=== PATIENT | female | born 1950 | race Caucasian/White ===

== ENCOUNTER 2017-02-01 05:32 | Inpatient (IN) | payer MEDICARE, OTHER, SELFPAY | END 2017-02-08 09:45 | disposition home or self-care (01) | DRG 190 | PROVIDERS: Admitting Provider Internal Medicine Adolescent Medicine; Visit Provider Internal Medicine Adolescent Medicine | DX: J44.0 Chronic obstructive pulmonary disease with (acute) lower respiratory infection (principal); J18.9 Pneumonia, unspecified organism; R78.81 Bacteremia; J44.1 Chronic obstructive pulmonary disease with (acute) exacerbation; E11.9 Type 2 diabetes mellitus without complications; Z72.0 Tobacco use | CPT/HCPCS: 82962; 86580; 94640; 94760; J1956 ==

== ENCOUNTER → 2017-02-12 | Outpatient (CLI) | payer MEDICARE, OTHER, SELFPAY | PROVIDERS: Family Provider Internal Medicine; Visit Provider Internal Medicine | DX: R06.02 Shortness of breath (principal); Z87.01 Personal history of pneumonia (recurrent) | CPT/HCPCS: 71020 ==

== ENCOUNTER → 2017-08-19 08:00 | Outpatient (CLI) | payer MEDICARE, OTHER, SELFPAY ==
--- NOTE | 2017-08-19 08:30 | US_ITS ---
US abdomen limited History:Nausea, vomiting, abdominal pain Ordering Physician:Shai Yap Patient Age: 66 years Comparison:None Findings: Pancreas:Unremarkable. No obvious mass or abnormal fluid collection. No ductal dilatation Liver:No focal liver lesions demonstrated. Homogeneous echogenicity. No intrahepatic biliary ductal dilatation evident Right Kidney:Unremarkable. Normal size and echogenicity. No hydronephrosis Gallbladder:No gallstones, gallbladder wall thickening, pericholecystic fluid, or biliary dilatation. There is a small amount sludge in the gallbladder which may be related patient's fasting state. Impression: Small amount of sludge in the gallbladder otherwise negative right upper quadrant ultrasound
--- NOTE | 2017-08-19 09:00 | FL_ITS ---
FL upper GI w air HISTORY: ITS.REASON: EPIGASTRIC PAIN ORDERING PHYSICIAN: Shai Yap PATIENT AGE: 66 years Comparison: None FINDINGS: The esophagus, stomach, and duodenum have an unremarkable appearance. There is a small sliding hiatal hernia with a small distal esophageal diverticulum. No ulcer or mass evident. No mucosal abnormalities apparent. There is normal peristalsis. The duodenal C-loop is nondisplaced. FLUOROSCOPY TIME : 2 minutes and 18 seconds. IMPRESSION: 1. Small sliding hiatal hernia with small distal esophageal diverticulum 2. Otherwise negative upper GI
== END ==
PROVIDERS: Family Provider Internal Medicine; PCP Internal Medicine Adolescent Medicine; Visit Provider Internal Medicine
DX: R10.13 Epigastric pain (principal)
CPT/HCPCS: 74247; 76705

== ENCOUNTER → 2017-11-19 09:39 | Outpatient (CLI) | payer MEDICARE, OTHER, SELFPAY ==
--- NOTE | 2017-11-19 09:44 | XR_ITS ---
XR chest 2V HISTORY: Pain, COPD ITS.REASON: COPD ORDERING PHYSICIAN: Shai Yap PATIENT AGE: 66 years COMPARISON: 02/12/2017 FINDINGS: The cardiomediastinal silhouette and pulmonary vascularity are within normal limits. COPD, no acute findings. No lobar consolidation or collapse. No acute bony findings. IMPRESSION: COPD, no acute finding
--- NOTE | 2017-11-19 09:44 | XR_ITS ---
EXAM: XR thoracic spine 3V HISTORY: ITS.REASON: THORACIC BACK PAIN Comparison: 02/12/2017 FINDINGS: There is mild dextrocurvature of the thoracic spine. There is mild thoracic kyphosis with mild multilevel degenerative disc disease in the upper thoracic spine. No acute fracture or dislocation. No lytic or blastic change. IMPRESSION: Degenerative change with upper thoracic kyphosis with no acute finding
== END ==
PROVIDERS: PCP Internal Medicine; Visit Provider Internal Medicine
DX: M54.6 Pain in thoracic spine (principal); J44.9 Chronic obstructive pulmonary disease, unspecified
CPT/HCPCS: 71046; 72072

== ENCOUNTER → 2017-11-26 08:45 | Outpatient (CLI) | payer MEDICARE, SELFPAY ==
--- NOTE | 2017-11-26 08:48 | XR_ITS ---
XR DEXA axial skeleton HISTORY: ITS.REASON: ARTHRITIS,BACK PAIN,POST MENOPAUSAL ORDERING PHYSICIAN: Shai Yap PATIENT AGE: 66 years COMPARISON: None FINDINGS: The BMD measured at the right femoral neck is 0.673 g/cm squared with a T score of -2.6. This is considered osteoporosis according to the World Health Organization criteria. Fracture risk is high. Treatment is advised. L1 L4 density has a T score of -2.1 IMPRESSION: Osteoporosis with high fracture risk. Recommend treatment and follow-up exam in November 2018
== END ==
PROVIDERS: Family Provider Internal Medicine; PCP Internal Medicine; Visit Provider Internal Medicine
DX: Z78.0 Asymptomatic menopausal state (principal); M19.90 Unspecified osteoarthritis, unspecified site
CPT/HCPCS: 77080

== ENCOUNTER 2018-03-17 08:20 | Inpatient (IN) ==
[2018-03-17 08:44] LABS: Basophils # 0.1 K/mm3 (0-0.2); Basophils % 0.3 % (0.1-2.0); Eosinophils # 0.1 K/mm3 (0.0-0.4); Eosinophils % 0.3 % (0.1-12.0); Hemoglobin 14.2 g/dL (12.2-16.2); Lymphocytes # 1.7 K/mm3 (0.7-4.5); Lymphocytes % 8.4 % (10-50); Mean Corpuscular HGB Conc 31.7 g/dL (31.8-35.4); Mean Corpuscular Hemoglobin 28.5 pg (27.0-31.2); Mean Corpuscular Volume 90.1 fl (81-99); Mean Platelet Volume 7.9 fl (7.4-10.4); Monocytes # 0.7 K/mm3 (0.1-1.0); Monocytes % 3.2 % (1.7-9.3); Neutrophils # 17.7 K/mm3 (1.8-7.8); Neutrophils % 87.8 % (37.0-80.0); Platelet Count 381 K/mm3 (142-424); Red Blood Count 4.99 M/mm3 (4.20-5.40); Red Cell Distribution Width 13.1 % (11.5-17.5)
[2018-03-17 08:57] LABS: Anion Gap 16.9 mEq/L (5-15); Blood Urea Nitrogen 21 mg/dL (7-18); Calcium 9.4 mg/dL (8.5-10.1); Carbon Dioxide 24 mmol/L (21.0-32.0); Chloride 97 mmol/L (98-107); Glucose 181 mg/dL (74-106); Potassium 3.9 mmoL/L (3.5-5.1); Sodium 134 mmol/L (136-145)
--- NOTE | 2018-03-17 08:59 | Emergency Department Note ---
ED Disposition Clinical Impression: Acute exacerbation of chronic obstructive airways disease, Pneumonia, community acquired Disposition: Admitted As Inpatient Condition on Discharge: Fair Referrals: Shai Yap [Primary Care Provider] - - Critical Care Critical Care Time: No Attestation: On , the high probability of a clinically significant, sudden or life threatening deterioration of the following system(s) required my full and direct attention, intervention and personal management. The time I documented below is in addition to time spent performing reported procedures but includes the follow ing listed in this critical care notation. Medical Decision Making - Medical Records Medical records reviewed: Yes: I reviewed the patient's medical records. - Sachin Inquiry Pt receiving controlled substance: No Sachin was queried for this patient: No Vital Signs: 03/17/18 08:22 03/17/18 09:20 Temperature 98.9 F Temperature Source Oral Pulse Rate [Right Radial] 98 H 93 H Respiratory Rate 24 Blood Pressure [Right Arm] 130/89 123/45 L Blood Pressure Mean [Right Arm] 102 71 Blood Pressure Source [Right Arm] Automatic Cuff Automatic Cuff Blood Pressure Position [Right Arm] Sitting Sitting 02 Sat by Pulse Oximetry 93 L 96 Oxygen Delivery Method Nasal Cannula Oxygen Flow Rate (LPM) 3.5 - Lab Data Lab results reviewed: Yes: I reviewed the patient's lab results. Lab Results 03/17/18 08:30: WBC 20.0 H, RBC 4.99, Hgb 14.2, Hct 45.0, MCV 90.1, MCH 28.5, MCHC 31.7 L, RDW 13.1, Plt Count 381, MPV 7.9, Neut % (Auto) 87.8 H, Lymph % (Auto) 8.4 L, [place] % (Auto) 3.2, Eos % (Auto) 0.3, Baso % (Auto) 0.3, Neut # (Auto) 17.7 H, Lymph # (Auto) 1.7, [place] # (Auto) 0.7, Eos # (Auto) 0.1, Baso # (Auto) 0.1, Total Counted 100, Neutrophils % (Manual) 81 H, Band Neutrophils % 6.0, Lymphocytes % (Manual) 7 L, Atypical Lymphs % 2.0, Monocytes % (Manual) 4, Platelet Estimate Normal, RBC Morphology Normal 03/17/18 08:30: Sodium 134 L, Potassium 3.9, Chloride 97 L, Carbon Dioxide 24, Anion Gap 16.9 H, BUN 21 H, Creatinine 1.02, Estimated Creat Clear 45, Estimated GFR 54 L, Est GFR ( Amer) 65, Glucose 181 H, Calcium 9.4, Troponin I < 0.02 03/17/18 08:30: Lactate 2.5 H Result diagrams: 03/17/18 08:30 03/17/18 08:30 Orders (Tests/Meds): ED MEDICATIONS Generic Name Dose Route Start Last Admin Trade Name Freq PRN Reason Stop Dose Admin Lactated Ringer's 1,000 mls @ 999 mls/hr 03/17/18 08:45 03/17/18 08:57 Lactated Ringer's 1000 Ml Bag IV 03/17/18 09:45 999 mls/hr .Q1H1M HITESH Administration Levofloxacin/Dextrose 750 mg in 150 mls @ 100 mls/hr 03/17/18 09:00 03/17/18 08:57 Levofloxacin 750mg/150ml Premix IV 03/31/18 08:59 100 mls/hr Q24H HITESH Administration Protocol Discontinued Medications Generic Name Dose Route Start Last Admin Trade Name Freq PRN Reason Stop Dose Admin Albuterol/Ipratropium 3 ml 03/17/18 08:38 Duoneb 3ml Neb IH 03/17/18 08:39 ONCE ONE Dexamethasone Sodium Phosphate 20 mg 03/17/18 08:38 03/17/18 08:56 Decadron 4mg/Ml 1ml Vial IV 03/17/18 08:39 20 mg ONCE ONE Administration Ketorolac Tromethamine 15 mg 03/17/18 08:41 03/17/18 08:56 Toradol 30mg/Ml Vial IV 03/17/18 08:42 15 mg ONCE ONE Administration ORDERS Category Date Time Status Chest XR 2 view (NOT portable) [XR chest 2V] Stat Exams 03/17/18 08:31 Taken Blood Culture Stat Micro 03/17/18 08:30 Received Sputum Culture & Gram Stain Stat Micro 03/17/18 08:30 Received - Radiology Data #1 Image(s): Chest Image Reviewed: Yes I reviewed the patient's radiology results Preliminary Findings: Abnormal (Hyperinflation lungs consistent with COPD with probable right posterior pneumonia lower lobe) - ECG Data Tracing #1 I reviewed this ECG and interpreted as documented below: Normal sinus rhythm rate 97 axis 78 no changes from 01/11/2017 no acute pa thology ECG initial impression date: 03/17/18 ECG initial impression time: 08:25 Normal Sinus Rhythm: Yes Medical Decision Narrative: Differential diagnosis community-acquired pneumonia, exacerbation of COPD, influenza Patient started on DuoNeb with Pulmicort and given IV steroids and a dose of Le vaquin to cover community-acquired pneumonia she produced a significant amount of sputum dark yellow after treatment her lung sounds improved she was given fluids [address] Saha covering for Dr. Yap discussed with the nurse practitioner patient be admitted to the hospital for further treatment in stable condition General Adult HPI - General Chief complaint: Shortness of Breath/Dyspnea Stated complaint: short of breath Time Seen by Provider: 03/17/18 08:25 Mode of Arrival: Family Vehicle Limitations: No Limitations Description of Symptoms (Recalled from ER Triage Doc. by RN): pt c/o bilateral rib pain that started on wednesday with productive cough with yellow mucous. pt has history of copd. pt took duoneb at home before she came to the hospital. - History of Present Illness HPI narrative: Patient is a 67-year-old female smoker with COPD who for last couple days has been having symptoms of congestion coughing chest wall pain she denies fever or chills she has oxygen at home but does not use it regularly. Complaining of thick yellow sputum. - Related Data Home Medications Medication Instructions Recorded Confirmed Levothyroxine Sodium 50 mcg PO DAILY 03/17/18 03/17/18 [Levothyroxine 25mcg (0.025mg) Tab] Metformin HCl 1,000 mg PO BID 03/17/18 03/17/18 Rosuvastatin Calcium 10 mg PO HS 03/17/18 03/17/18 Tramadol HCl [Tramadol 50mg 50 mg PO Q6 PRN 03/17/18 03/17/18 Tab] Allergies Allergy/AdvReac Type Severity Reaction Status Date / Time Penicillins Allergy Severe TONGUE Verified 03/17/18 08:36 SWELLS doxycycline Allergy Mild I-RASH Verified 03/17/18 08:36 [facility] History - Hepatitis A Screen Drug use history?: No High risk sexual behaviors?: No History of sexually transmitted infection?: No Currently employed?: No Childcare worker?: No Do you have indoor plumbing?: Yes Do you have electricity?: Yes Attestation statement:: This patient has been screened for Hepatitis A risk factors. I have reviewed the patient's past medical history: Yes Medical History: Reports:: Diabetes Mellitus Type 2 Denies:: Cancer, Diabetes Mellitus Type 1, MRSA Amputation: No - Social History Smoking Status: Current every day smoker Tobacco Type: cigarettes Alcohol Intake: never Occupational Status: retired - Psychiatric History Expresses thoughts of harming self/others: None Suicide Plan Description: No Plan ROS Obtained: Yes All systems reviewed & no additional complaints - Constitutional Constitutional: Reports body ache, Reports poor appetite, Reports weakness - Respiratory Respiratory: Yes as per HPI, Yes cough, Yes dyspnea, Yes dyspnea on exertion Physical Exam - General General appearance: alert Comment: Patient appears dehydrated and weak but alert and oriented and tachypneic no audible wheezes - Head Head exam: atraumatic, normocephalic, normal inspection - Eye Eye exam: Present: normal appearance, PERRL, EOMI - ENT ENT exam: Present: normal exam, normal oropharynx, mucous membranes moist, TM's normal bilaterally, normal external ear exam - Neck Neck exam: Present: normal inspection, full ROM, trachea midline. Absent: meningismus, lymphadenopathy - Chest Chest inspection: Present: normal inspection, symmetric chest wall rise. Absent: tenderness - Respiratory Respiratory exam: Absent: normal lung sounds bilaterally (Distant breath sounds with some wheezes patient has productive cough), respiratory distress - Cardiovascular Cardiovascular exam: Present: regular rate, normal rhythm, tachycardia. Absent: JVD - Abdominal Exam Abdominal exam: Present: soft, normal bowel sounds. Absent: distention, tenderness, guarding - Extremities Exam Extremities exam: Present: normal inspection, full ROM, normal capillary refill. Absent: calf tenderness - Back Exam Back exam: Present: normal inspection. Absent: tenderness - Neurological Exam Neurological exam: Present: alert, oriented X3 - Psychiatric Psychiatric exam: Present: normal affect, normal mood - Skin Skin exam: Present: warm, dry, intact, normal color - Lymphatic Lymphatic Findings: no adenopathy
[2018-03-17 09:26] LABS: Lymphocytes % 7 % (10-50); Monocytes % 4 % (2-9); Neutrophils % 81 % (42-76); Total Cells Counted 100
[2018-03-17 09:28] LABS: RBC Morphology Normal
--- NOTE | 2018-03-17 15:26 | Pharmacy Consult Notes ---
[facility] Pharmacy VTE Monitoring - Patient Demographics Admission date: 03/17/18 Report Date: 03/17/18 Time: 15:26 Allergies/Adverse Reactions: Patient Allergies Penicillins Allergy (Severe, Verified 03/17/18 08:36) TONGUE SWELLS doxycycline Allergy (Mild, Verified 03/17/18 08:36) I-RASH Height: 1.6 m Weight: 53.977 kg Patient Problems: Current Active Problems Acute exacerbation of chronic obstructive airways disease (Acute) Pneumonia, community acquired (Acute) - VTE Risk Labs: VTE Related Lab Results Hgb 14.2 g/dL (12.2-16.2) 03/17/18 08:30 Hct 45.0 % (37.0-47.0) 03/17/18 08:30 Plt Count 381 K/mm3 (142-424) 03/17/18 08:30 BUN 21 mg/dL (7-18) H 03/17/18 08:30 Creatinine 1.02 mg/dL (0.55-1.02) 03/17/18 08:30 Estimated Creat Clear 45 mL/min (50-200) 03/17/18 08:30 Was VTE Risk Assessment Performed: Yes VTE Score: 4 VTE Risk Level: Low Risk - Prophylaxis VTE Prophylaxis Ordered?: Yes Types of VTE Prophylaxis: TEDS Knee High Location of Applied Device: Bilateral Lower Extremeties - VTE Diagnosis Confirmed Treatment or plan recommended: Continue Current Treatment
--- NOTE | 2018-03-17 19:49 | History & Physical Report ---
*Admission Date: 03/17/18 *Chief complaint: Cough, shortness of breath *History of present illness: 67 yr old female with known history of COPD and continued tobacco use presented to ED today with complaints of worsening cough, shortness of breath and pleuritic left lower chest pain with cough and deep breathing. She reports that symptoms started approximately 3 days ago and have been getting progressively worse. She is unsure about whether or not she has been running a fever. ED workup reveals left lower lobe pneumonia with small pleural effusion, elevated WBC, initially elevated lactate and she was admitted for IV antibiotics, IV hydration and pulmonary toilet. [facility] History I have reviewed the patient's past medical history: Yes Medical History: Reports:: Chronic Obstructive Pulmonary Disease (COPD), Diabetes Mellitus Type 2, Home Oxygen (HS and during the day as needed), Hyperlipidemia, Osteoporosis Denies:: Cancer, Diabetes Mellitus Type 1, MRSA Have you ever received a pneumonia vaccine?: Yes Have you received a flu vaccine this season?: Yes Other Medical History: Reports: Arthritis, Hypothyroidism Other Surgeries: Yes: Hysterectomy-Total Amputation: No - *Social History Educational Level: Attended College Smoking Status: Current every day smoker Tobacco Type: cigarettes Alcohol Intake: never Occupational Status: retired ([employer]) Travel in the last 8 weeks: None - Psychiatric History Expresses thoughts of harming self/others: None Suicide Plan Description: No Plan *Family Hx:: Diabetes Review of Systems - Review of Systems Review of systems:: pertinent systems reviewed and negative unless documented below - Constitutional Reports fatigue - *Cardiovascular Reports chest pain (with deep breathing, left side), Reports shortness of breath, Reports shortness of breath with activity, Denies leg swelling - *Respiratory Reports change in phlegm color, Reports chest congestion, Reports cough, Reports excessive phlegm production, Reports pain on inspiration, Reports pain with cough, Denies coughing up blood - *Gastrointestinal Denies abdominal pain, Denies vomiting - *Musculoskeletal Reports back pain (chronic, some improvement with tramadol, recently started treatment for OP) - Integumentary/Breasts Denies rash - *Neurologic Reports weakness Meds Home Medications Medication Instructions Recorded Confirmed Type Alendronate Sodium 70 mg PO WEEKLY 03/17/18 03/17/18 History Levothyroxine Sodium 50 mcg PO DAILY 03/17/18 03/17/18 History [Levothyroxine 25mcg (0.025mg) Tab] Metformin HCl 1,000 mg PO BID 03/17/18 03/17/18 History Rosuvastatin Calcium 10 mg PO HS 03/17/18 03/17/18 History Tramadol HCl [Tramadol 50mg 50 mg PO Q6HP PRN 03/17/18 03/17/18 History Tab] Allergies Allergy/AdvReac Type Severity Reaction Status Date / Time Penicillins Allergy Severe TONGUE Verified 03/17/18 08:36 SWELLS doxycycline Allergy Mild I-RASH Verified 03/17/18 08:36 Exam Vital signs and Labs for Last 24 Hours: Temp Pulse Resp BP Pulse Ox 97.9 F 17 L 17 139/74 94 L 03/17/18 16:00 03/17/18 16:00 03/17/18 16:00 03/17/18 16:00 03/17/18 16:00 Laboratory Results - last 24 hr 03/17/18 08:30: WBC 20.0 H, RBC 4.99, Hgb 14.2, Hct 45.0, MCV 90.1, MCH 28.5, MCHC 31.7 L, RDW 13.1, Plt Count 381, MPV 7.9, Neut % (Auto) 87.8 H, Lymph % (Auto) 8.4 L, [place] % (Auto) 3.2, Eos % (Auto) 0.3, Baso % (Auto) 0.3, Neut # (Auto) 17.7 H, Lymph # (Auto) 1.7, [place] # (Auto) 0.7, Eos # (Auto) 0.1, Baso # (Auto) 0.1, Total Counted 100, Neutrophils % (Manual) 81 H, Band Neutrophils % 6.0, Lymphocytes % (Manual) 7 L, Atypical Lymphs % 2.0, Monocytes % (Manual) 4, Platelet Estimate Normal, RBC Morphology Normal 03/17/18 08:30: Sodium 134 L, Potassium 3.9, Chloride 97 L, Carbon Dioxide 24, Anion Gap 16.9 H, BUN 21 H, Creatinine 1.02, Estimated Creat Clear 45, Estimated GFR 54 L, Est GFR ( Amer) 65, Glucose 181 H, Calcium 9.4, Troponin I < 0.02 03/17/18 08:30: Lactate 2.5 H 03/17/18 13:00: Lactate 1.3 03/17/18 19:15: POC Glucose 371 H* I & O for Last 24 hours: Intake & Output 03/15/18 03/16/18 03/17/18 03/18/18 11:59 11:59 11:59 11:59 Intake Total 600 / 600 480 / 480 Balance 600 / 600 480 / 480 Weight 120 lb 119 lb Microbiology Reports for the Last 24 Hours: Microbiology 03/17/18 08:30 Sputum - Expectorated Sputum Gram Stain - Final - Constitutional no acute distress, average body habitus, cooperative - *Routine HEENT Exam Head: Present: normocephalic Eye: Present: conjunctivae pink ENT: Present: mucous membranes moist, oropharynx clear - *Routine Neck Exam Present: supple. Absent: lymphadenopathy - *Routine Respiratory Exam Present: accessory muscle use, decreased breath sounds, rales (bibasilar) - *Routine Cardiovascular Exam Present: RRR. Absent: murmur - *Routine Abdominal Exam Present: soft, normoactive bowel sounds. Absent: tenderness, distended - *Routine Extremities Exam Present: pulses intact, normal capillary refill. Absent: clubbing, edema - *Routine Skin Exam Present: intact, warm. Absent: rash - *Routine Neurological Exam Present: oriented X3 Assessment and Plan (1) LLL pneumonia Current visit: Yes Status: Acute Category: Medical Code(s): J18.1 - Lobar pneumonia, unspecified organism IV levaquin, FU on sputum and blood cultures when available. Pulmonary toilet and monitor respiratory status (2) Acute exacerbation of chronic obstructive airways disease Current visit: Yes Status: Acute Category: Medical Code(s): J44.1 - Chronic obstructive pulmonary disease with (acute) exacerbation (3) Diabetes mellitus type 2 in nonobese Current visit: Yes Status: Chronic Category: Medical Code(s): E11.9 - Type 2 diabetes mellitus without complications (4) Back pain, chronic Current visit: Yes Status: Chronic Qualifiers: Back pain location: low back pain Category: Medical Code(s): M54.9 - Dorsalgia, unspecified; G89.29 - Other chronic pain Continue tramadol PRN, pain at baseline (5) Hypothyroidism Current visit: Yes Status: Chronic Category: Medical Code(s): E03.9 - Hypothyroidism, unspecified continue home levothyroxine (6) Tobacco use Current visit: Yes Status: Chronic Category: Medical Code(s): Z72.0 - Tobacco use Encouraged to consider cessation. Has been successful in the past for up to 4 months. Nicotine patch during admission (7) Dehydration with hyponatremia Current visit: Yes Status: Acute Category: Medical Code(s): E87.1 - Hypo- osmolality and hyponatremia
[2018-03-18 06:58] LABS: Anion Gap 14.4 mEq/L (5-15); Calcium 8.6 mg/dL (8.5-10.1); Potassium 4.4 mmoL/L (3.5-5.1)
[2018-03-18 07:03] LABS: Basophils % 0.1 % (0.1-2.0); Hematocrit 35.8 % (37.0-47.0); Lymphocytes # 0.8 K/mm3 (0.7-4.5); Mean Corpuscular HGB Conc 31.7 g/dL (31.8-35.4); Mean Corpuscular Hemoglobin 28.9 pg (27.0-31.2); Mean Platelet Volume 8.1 fl (7.4-10.4); Monocytes # 0.4 K/mm3 (0.1-1.0); Monocytes % 3.3 % (1.7-9.3); Neutrophils # 11.7 K/mm3 (1.8-7.8); Neutrophils % 90.7 % (37.0-80.0); Platelet Count 350 K/mm3 (142-424); Red Blood Count 3.94 M/mm3 (4.20-5.40); White Blood Count 12.9 K/mm3 (4.8-10.8)
[2018-03-18 07:27] LABS: Hemoglobin 11.4 g/dL (12.2-16.2)
--- NOTE | 2018-03-18 08:43 | Progress Note ---
Internal Medicine - PN: Subj *Date: 03/18/18 *Time: 08:40 Interval history: Patient states she feels somewhat better, continues to cough, minimal shortness of air with exertion. Exam Vital signs and Labs for Last 24 Hours: Temp Pulse Resp BP Pulse Ox 98.2 F 76 16 111/52 L 94 L 03/18/18 04:00 03/18/18 06:44 03/18/18 04:00 03/18/18 04:00 03/18/18 06:44 Laboratory Results - last 24 hr 03/17/18 08:30: WBC 20.0 H, RBC 4.99, Hgb 14.2, Hct 45.0, MCV 90.1, MCH 28.5, MCHC 31.7 L, RDW 13.1, Plt Count 381, MPV 7.9, Neut % (Auto) 87.8 H, Lymph % (Auto) 8.4 L, [place] % (Auto) 3.2, Eos % (Auto) 0.3, Baso % (Auto) 0.3, Neut # (Auto) 17.7 H, Lymph # (Auto) 1.7, [place] # (Auto) 0.7, Eos # (Auto) 0.1, Baso # (Auto) 0.1, Total Counted 100, Neutrophils % (Manual) 81 H, Band Neutrophils % 6.0, Lymphocytes % (Manual) 7 L, Atypical Lymphs % 2.0, Monocytes % (Manual) 4, Platelet Estimate Normal, RBC Morphology Normal 03/17/18 08:30: Sodium 134 L, Potassium 3.9, Chloride 97 L, Carbon Dioxide 24, Anion Gap 16.9 H, BUN 21 H, Creatinine 1.02, Estimated Creat Clear 45, Estimated GFR 54 L, Est GFR ( Amer) 65, Glucose 181 H, Calcium 9.4, Troponin I < 0.02 03/17/18 08:30: Lactate 2.5 H 03/17/18 13:00: Lactate 1.3 03/17/18 19:15: POC Glucose 371 H* 03/18/18 05:50: WBC 12.9 H D, RBC 3.94 L, Hgb 11.4 L D, Hct 35.8 L, MCV 91.0, MCH 28.9, MCHC 31.7 L, RDW 13.0, Plt Count 350, MPV 8.1, Neut % (Auto) 90.7 H, Lymph % (Auto) 6.0 L, [place] % (Auto) 3.3, Eos % (Auto) 0.0 L, Baso % (Auto) 0.1, Neut # (Auto) 11.7 H, Lymph # (Auto) 0.8, [place] # (Auto) 0.4, Eos # (Auto) 0.0, Baso # (Auto) 0.0 03/18/18 05:50: Sodium 139, Potassium 4.4, Chloride 105, Carbon Dioxide 24, Anion Gap 14.4, BUN 16, Creatinine 0.80 D, Estimated Creat Clear 45, Estimated GFR 71, Est GFR ( Amer) 86 D, Glucose 188 H, Calcium 8.6 03/18/18 06:16: POC Glucose 184 H I & O for Last 24 hours: Intake & Output 03/15/18 03/16/18 03/17/18 03/18/18 11:59 11:59 11:59 11:59 Intake Total 600 / 600 1343 / 1343 Output Total 400 / 400 Balance 600 / 600 943 / 943 Weight 120 lb 119 lb Microbiology Reports for the Last 24 Hours: Microbiology 03/17/18 08:30 Sputum - Expectorated Sputum Gram Stain - Final 03/17/18 08:30 Sputum - Expectorated Sputum Sputum Culture - Preliminary Narrative: Patient is awake, alert, on oxygen. O2 saturations acceptable. No JVD. Oropharynx clear. Lungs in the anterior sabillon are clear, posterior sabillon have some expiratory rhonchi but good air movement. Abdomen soft and nontender. Neurologically intact. Assessment and Plan (1) LLL pneumonia Current visit: Yes Status: Acute Category: Medical Code(s): J18.1 - Lobar pneumonia, unspecified organism (2) Acute exacerbation of chronic obstructive airways disease Current visit: Yes Status: Acute Category: Medical Code(s): J44.1 - Chronic obstructive pulmonary disease with (acute) exacerbation (3) Diabetes mellitus type 2 in nonobese Current visit: Yes Status: Chronic Category: Medical Code(s): E11.9 - Type 2 diabetes mellitus without complications (4) Back pain, chronic Current visit: Yes Status: Chronic Qualifiers: Back pain location: low back pain Category: Medical Code(s): M54.9 - Dorsalgia, unspecified; G89.29 - Other chronic pain (5) Hypothyroidism Current visit: Yes Status: Chronic Category: Medical Code(s): E03.9 - Hypothyroidism, unspecified (6) Tobacco use Current visit: Yes Status: Chronic Category: Medical Code(s): Z72.0 - Tobacco use (7) Dehydration with hyponatremia Current visit: Yes Status: Acute Category: Medical Code(s): E87.1 - Hypo- osmolality and hyponatremia - Assessment and plan all Dx Assessment and Plan for all problems:: Electrolytes improving. Continue current IV antibiotics, await culture results to see if antibiotic therapy needs to be adjusted. Start Advair inhaler as patient is not on inhaled corticosteroids at home.
[2018-03-18 09:34] LABS: Eosinophils % 1 % (0-3); Lymphocytes % 7 % (10-50); Monocytes % 3 % (2-9); Neutrophils % 88 % (42-76); Total Cells Counted 100
[2018-03-18 09:35] LABS: RBC Morphology Normal
[2018-03-19 06:30] LABS: Basophils % 0.3 % (0.1-2.0); Eosinophils # 0.1 K/mm3 (0.0-0.4); Eosinophils % 0.5 % (0.1-12.0); Hematocrit 34.4 % (37.0-47.0); Hemoglobin 10.9 g/dL (12.2-16.2); Lymphocytes # 1.9 K/mm3 (0.7-4.5); Lymphocytes % 19.2 % (10-50); Mean Corpuscular HGB Conc 31.7 g/dL (31.8-35.4); Mean Corpuscular Hemoglobin 28.5 pg (27.0-31.2); Mean Corpuscular Volume 89.8 fl (81-99); Mean Platelet Volume 7.7 fl (7.4-10.4); Monocytes # 0.5 K/mm3 (0.1-1.0); Monocytes % 4.9 % (1.7-9.3); Neutrophils # 7.6 K/mm3 (1.8-7.8); Neutrophils % 75.1 % (37.0-80.0); Platelet Count 390 K/mm3 (142-424); Red Blood Count 3.83 M/mm3 (4.20-5.40); Red Cell Distribution Width 13.1 % (11.5-17.5); White Blood Count 10.1 K/mm3 (4.8-10.8)
[2018-03-19 07:05] LABS: Calcium 8.3 mg/dL (8.5-10.1)
--- NOTE | 2018-03-19 08:34 | Discharge Summary ---
General - General Admission date:: 03/17/18 Discharge date: 03/19/18 HPI HPI: 67 yr old female with known history of COPD and continued tobacco use presented to ED today with complaints of worsening cough, shortness of breath and pleuritic left lower chest pain with cough and deep breathing. She reports that symptoms started approximately 3 days ago and have been getting progressively worse. She is unsure about whether or not she has been running a fever. ED workup reveals left lower lobe pneumonia with small pleural effusion, elevated WBC, initially elevated lactate and she was admitted for IV antibiotics, IV hydration and pulmonary toilet. Hospital Course Hospital Course: Patient was admitted to hospital, placed on Levaquin by emergency department for community acquired pneumonia and she had a good response to this. Cultures of blood were obtained, nondiagnostic at time of discharge. Sputum culture was also obtained. Again, nondiagnostic at the time of discharge. Patient improved vis--vis white count and oxygen saturations. She wore oxygen her entire time in the hospital. She apparently wears this at night at home but is comfortable wearing it most of the day. This morning she had improved back to her baseline in regards to her functional status according to her report. Lung exam improved and white count and improved. Plan will be to discharge home today. She will be discharged on 5 days of prednisone 20 mill grams twice daily as well as 5 days of levofloxacin. We have added Advair inhaler in the hospital for inhaled corticosteroid and long-acting beta agonist benefit in addition to her nebulizers at home and short acting rescue inhaler. She will follow-up with her primary physician as an outpatient in the next 5-7 days. She will need follow-up chest x-ray to document clearance of her small pleural effusion and she will also need repeat CBC to evaluate the very small reduction in her hemoglobin which I feel was from delutional effect and blood draws. Objective Vital signs: Temp Pulse Resp BP Pulse Ox 97.0 F L 73 17 111/53 L 100 03/19/18 08:00 03/19/18 08:00 03/19/18 08:00 03/19/18 08:00 03/19/18 08:00 Narrative: Patient is awake. Alert. Pleasant. Talkative. Oropharynx clear. No JVD. Neurologic exam including cranial nerves and peripheral extremity movement is unremarkable. Lungs have good air movement. Much clearer than on admission. Minimal scattered rhonchi in the bases. No respiratory distress. No tachypnea. Heart rate regular. Abdomen soft and nontender. No edema or clubbing. Results Labs on day of discharge: Labs from last 24 hours 03/19/18 03/19/18 03/19/18 06:15 06:15 06:00 WBC 10.1 RBC 3.83 L Hgb 10.9 L Hct 34.4 L MCV 89.8 MCH 28.5 MCHC 31.7 L RDW 13.1 Plt Count 390 MPV 7.7 Neut % (Auto) 75.1 Lymph % (Auto) 19.2 [place] % (Auto) 4.9 Eos % (Auto) 0.5 Baso % (Auto) 0.3 Neut # (Auto) 7.6 Lymph # (Auto) 1.9 [place] # (Auto) 0.5 Eos # (Auto) 0.1 Baso # (Auto) 0.0 Total Counted Neutrophils % (Manual) Lymphocytes % (Manual) Atypical Lymphs % Monocytes % (Manual) Eosinophils % (Manual) Platelet Estimate RBC Morphology Sodium 142 Potassium 4.0 Chloride 108 H Carbon Dioxide 23 Anion Gap 15.0 BUN 17 Creatinine 0.72 Estimated Creat Clear 45 Estimated GFR 80 Est GFR ( Amer) 97 Glucose 106 POC Glucose 102 Calcium 8.3 L 03/18/18 03/18/18 03/18/18 21:13 16:57 11:55 WBC RBC Hgb Hct MCV MCH MCHC RDW Plt Count MPV Neut % (Auto) Lymph % (Auto) [place] % (Auto) Eos % (Auto) Baso % (Auto) Neut # (Auto) Lymph # (Auto) [place] # (Auto) Eos # (Auto) Baso # (Auto) Total Counted Neutrophils % (Manual) Lymphocytes % (Manual) Atypical Lymphs % Monocytes % (Manual) Eosinophils % (Manual) Platelet Estimate RBC Morphology Sodium Potassium Chloride Carbon Dioxide Anion Gap BUN Creatinine Estimated Creat Clear Estimated GFR Est GFR ( Amer) Glucose POC Glucose 173 H 144 H 117 H Calcium 03/18/18 05:50 WBC RBC Hgb Hct MCV MCH MCHC RDW Plt Count MPV Neut % (Auto) Lymph % (Auto) [place] % (Auto) Eos % (Auto) Baso % (Auto) Neut # (Auto) Lymph # (Auto) [place] # (Auto) Eos # (Auto) Baso # (Auto) Total Counted 100 Neutrophils % (Manual) 88 H Lymphocytes % (Manual) 7 L Atypical Lymphs % 1.0 Monocytes % (Manual) 3 Eosinophils % (Manual) 1 Platelet Estimate Normal RBC Morphology Normal Sodium Potassium Chloride Carbon Dioxide Anion Gap BUN Creatinine Estimated Creat Clear Estimated GFR Est GFR ( Amer) Glucose POC Glucose Calcium Preliminary micro results at discharge 03/17/18 08:30 Sputum Culture - Preliminary Sputum - Expectorated Sputum DS: Diagnosis - Discharge Diagnosis (1) LLL pneumonia Status: Acute (2) Acute exacerbation of chronic obstructive airways disease Status: Acute (3) Diabetes mellitus type 2 in nonobese Status: Chronic (4) Back pain, chronic Status: Chronic (5) Hypothyroidism Status: Chronic (6) Tobacco use Status: Chronic (7) Dehydration with hyponatremia Status: Resolved Discharge Plan - Patient Discharge Instructions ACTIVITY: Continue current activity DIET: continue same diet Patient Instructions: DI for Chronic Obstructive Pulmonary Disease, DI for Pneumonia -- Adult - Follow up Plan Follow up with: Shai Yap [Primary Care Provider] - 03/23/18 Disposition: Home, Self-[facility]ci Medications: Home Medications Medication Instructions Recorded Confirmed Type Alendronate Sodium 70 mg PO WEEKLY 03/17/18 03/17/18 History Levothyroxine Sodium 50 mcg PO DAILY 03/17/18 03/17/18 History [Levothyroxine 25mcg (0.025mg) Tab] Metformin HCl 1,000 mg PO BID 03/17/18 03/17/18 History Rosuvastatin Calcium 10 mg PO HS 03/17/18 03/17/18 History Tramadol HCl [Tramadol 50mg 50 mg PO Q6HP PRN 03/17/18 03/17/18 History Tab] Albuterol Sulfate [Albuterol HFA 1 puff IH NEEDED PRN 03/18/18 03/18/18 History Inhaler] levoFLOXacin [Levaquin 500mg 500 mg PO DAILY #5 tab 03/19/18 Rx tab] predniSONE [Deltasone 20mg 20 mg PO BID 5 Days #10 tab 03/19/18 Rx tablet] Prescriptions/Medication Reconciliation: New predniSONE [Deltasone 20mg tablet] 20 mg PO BID 5 Days #10 tab Fluticasone/Salmeterol [Advair 250/50mcg Diskus] 1 puffs IH BIDRT puff levoFLOXacin [Levaquin 500mg tab] 500 mg PO DAILY #5 tab Continue Levothyroxine Sodium [Levothyroxine 25mcg (0.025mg) Tab] 50 mcg PO DAILY Tramadol HCl [Tramadol 50mg Tab] 50 mg PO Q6HP PRN PRN Reason: Moderate Pain Rosuvastatin Calcium 10 mg PO HS Metformin HCl 1,000 mg PO BID Albuterol Sulfate [Albuterol HFA Inhaler] 1 puff IH NEEDED PRN PRN Reason: Shortness Of Breath Alendronate Sodium 70 mg PO WEEKLY
== END 2018-03-19 12:07 | disposition home or self-care (01) | DRG 190 ==
LOC: ER 08:20 → 2ND 09:40
PROVIDERS: ADMIT Internal Medicine Adolescent Medicine; ATTEND Internal Medicine Adolescent Medicine
CPT/HCPCS: 36415; 71020; 71046; 80048; 82962; 83605; 84484; 85007; 85025; 87040; 87070; 87077; 87186; 87205; 93005; 94640; 94761; 96365; 96366; 96367; 96375; 99285; J1956

== ENCOUNTER 2018-10-15 10:26 | Inpatient (IN) ==
[2018-10-15 11:05] LABS: Basophils % 0.3 % (0.1-2.0); Eosinophils % 0.2 % (0.1-12.0); Hematocrit 42.1 % (37.0-47.0); Hemoglobin 13.6 g/dL (12.2-16.2); Lymphocytes # 1.1 K/mm3 (0.7-4.5); Lymphocytes % 8.4 % (10-50); Mean Corpuscular HGB Conc 32.2 g/dL (31.8-35.4); Mean Corpuscular Volume 88.5 fl (81-99); Mean Platelet Volume 7.3 fl (7.4-10.4); Monocytes # 0.6 K/mm3 (0.1-1.0); Monocytes % 4.7 % (1.7-9.3); Neutrophils % 86.3 % (37.0-80.0); Platelet Count 416 K/mm3 (142-424); Red Blood Count 4.76 M/mm3 (4.20-5.40); Red Cell Distribution Width 13.1 % (11.5-17.5); White Blood Count 12.8 K/mm3 (4.8-10.8)
[2018-10-15 11:27] LABS: Anion Gap 15.4 mEq/L (5-15); Calcium 9.4 mg/dL (8.5-10.1)
--- NOTE | 2018-10-15 12:03 | Emergency Department Note ---
ED Disposition Clinical Impression: COPD exacerbation, Elevated troponin Acute bronchitis Qualifiers: Bronchitis organism: unspecified organism Qualified Code(s): J20.9 - Acute bronchitis, unspecified Disposition: Admitted As Inpatient Condition on Discharge: [facility] - Critical Care Critical Care Time: No Attestation: On 10/15/18, the high probability of a clinically significant, sudden or life threatening deterioration of the following system(s) required my full and direct attention, intervention and personal management. The time I documented below is in addition to time spent performing reported procedures but includes the following listed in this critical care notation. Medical Decision Making - [place] Inquiry Pt receiving controlled substance: No Vital Signs: 10/15/18 10:36 10/15/18 10:40 10/15/18 11:39 Temperature 98.6 F Temperature Source Oral Pulse Rate 90 Pulse Rate [Left Radial] 103 H 100 H Respiratory Rate 30 H Blood Pressure [Right Arm] 146/76 H 132/70 Blood Pressure Mean [Right Arm] 99 90 Blood Pressure Source [Right Arm] Automatic Cuff Automatic Cuff Blood Pressure Position [Right Arm] Sitting Sitting 02 Sat by Pulse Oximetry 88 L 96 96 Oxygen Delivery Method Room Air Nasal Cannula Nasal Cannula Oxygen Flow Rate (LPM) 2.5 2 10/15/18 12:11 Temperature Temperature Source Pulse Rate Pulse Rate [Left Radial] 94 H Respiratory Rate Blood Pressure [Right Arm] 132/65 Blood Pressure Mean [Right Arm] 87 Blood Pressure Source [Right Arm] Automatic Cuff Blood Pressure Position [Right Arm] Sitting 02 Sat by Pulse Oximetry 96 Oxygen Delivery Method Nasal Cannula Oxygen Flow Rate (LPM) 2 - Lab Data Lab Results 10/15/18 10:50: WBC 12.8 H, RBC 4.76, Hgb 13.6, Hct 42.1, MCV 88.5, MCH 28.5, MCHC 32.2, RDW 13.1, Plt Count 416, MPV 7.3 L, Neut % (Auto) 86.3 H, Lymph % (Auto) 8.4 L, [place] % (Auto) 4.7, Eos % (Auto) 0.2, Baso % (Auto) 0.3, Neut # (Auto) 11.0 H, Lymph # (Auto) 1.1, [place] # (Auto) 0.6, Eos # (Auto) 0.0, Baso # (Auto) 0.0, Total Counted 100, Neutrophils % (Manual) 88 H, Lymphocytes % (Manual) 7 L, Monocytes % (Manual) 5, Platelet Estimate Normal, RBC Morphology Normal 10/15/18 10:50: Sodium 134 L, Potassium 4.4, Chloride 97 L, Carbon Dioxide 26, Anion Gap 15.4 H, BUN 16, Creatinine 0.86, Estimated Creat Clear 43, Estimated GFR 65, Est GFR ( Amer) 79, Glucose 180 H, Calcium 9.4, Troponin I 0.11 H 10/15/18 10:50: Lactate 1.1 Result diagrams: 10/15/18 10:50 10/15/18 10:50 Orders (Tests/Meds): ED MEDICATIONS Generic Name Dose Route Start Last Admin Trade Name Freq PRN Reason Stop Dose Admin Acetaminophen 650 mg 10/15/18 12:44 Acetaminophen 325mg Tab PO 11/14/18 12:43 Q4HP PRN As Needed for Fever or Pain Albuterol/Ipratropium 3 ml 10/15/18 14:00 Duoneb 3ml Neb IH 11/14/18 13:59 QIDRT [facility] Azithromycin 500 mg/ Sodium 250 mls @ 250 mls/hr 10/16/18 12:15 Chloride IV 10/29/18 12:14 Q24H [facility]ITESH Protocol Sodium Chloride 1,000 mls @ 50 mls/hr 10/15/18 12:44 Sod Chlor 0.9% 1000ml Bag IV 11/14/18 12:43 .Q20H [facility] Insulin Human Lispro 0 unit 10/15/18 16:30 Humalog 100 Units/Ml 3ml Vial (Ssi) SQ 11/14/18 16:29 ACHS [facility] Protocol Levothyroxine Sodium 50 mcg 10/16/18 09:00 Synthroid 25mcg (0.025mg) Tablet PO 11/15/18 08:59 DAILY [facility] Methylprednisolone Sodium Succinate 60 mg 10/15/18 12:44 Solu-Medrol 125mg/2ml Vial IV 11/14/18 12:43 Q8H [facility] Non-Formulary Medication 10 mg 10/15/18 21:00 Rosuvastatin Calcium PO 11/14/18 20:59 HS [facility] Ondansetron HCl 4 mg 10/15/18 12:44 Zofran 4mg/2ml Vial IV 11/14/18 12:43 Q8HP PRN Nausea Tramadol HCl grecia 10/15/18 12:44 Ultram Take Home Pack 50mg (10) PO 11/14/18 12:43 Q6HP PRN Moderate Pain Discontinued Medications Generic Name Dose Route Start Last Admin Trade Name Freq PRN Reason Stop Dose Admin Albuterol/Ipratropium 3 ml 10/15/18 12:16 Duoneb 3ml Neb IH 10/15/18 12:17 ONCE ONE Aspirin 324 mg 10/15/18 12:14 10/15/18 12:40 Aspirin 81mg Chewable Tablet PO 10/15/18 12:15 324 mg ONCE ONE Administration Azithromycin 500 mg/ Sodium 250 mls @ 250 mls/hr 10/15/18 12:15 10/15/18 12 :40 Chloride IV 10/29/18 12:14 250 mls/hr Q24H [facility]ITESH Administration Protocol Methylprednisolone Sodium Succinate 125 mg 10/15/18 12:10 10/15/18 12:39 Solu-Medrol 125mg/2ml Vial IV 10/15/18 12:11 125 mg ONCE ONE Administration ORDERS Category Date Time Status Troponin I Q3H Lab 10/15/18 15:30 Ordered Troponin I Q3H Lab 10/15/18 18:30 Ordered Blood Culture Stat Micro 10/15/18 10:50 Ordered Sputum Culture & Gram Stain Stat Micro 10/15/18 11:00 Results - Radiology Data #1 Image(s): Chest Image Reviewed: Yes I have reviewed radiologist's interpretation FINDINGS: The cardiomediastinal silhouette and pulmonary vascularity are within normal limits. There are chronic interstitial changes with coarsening of the bronchovascular markings with COPD. There are chronic changes in the lung bases and in the right mid lung. Chronic opacities noted in the left lower lobe posteriorly. No acute bony findings IMPRESSION: COPD with chronic interstitial changes with chronic consolidation in the left lung base posteriorly Dictated by: David Beasley MD 10/15/2018 11:29 - ECG Data Tracing #1 EKG interpreted by Rigo Hoyos MD: Rhythm: sinus tachycardia Rate: 102 [place]: normal Ectopy: none Conduction: normal ST Segment Changes: none T Wave Changes: none Q Waves: none No evidence of acute ischemia or injury. Low voltage QRS Baseline artifact present, but I consider the EKG adequate for accurate interpretation. - Physician Consults Physician Consulted: David Saha Time: 12:17 Reason -: Admission Comment/Response: Agrees to admit the patient to the hospital. We discussed the patient's clinical information, including history, exam, laboratory and rad iology results and ED course. Per hospital procedure, I will write temporary bridge inpatient orders on the patient. Specific orders requested by the admitting physician: Continue oxygen, nebulizer treatments, steroids. Zithromax. Serial cardiac enzymes. General Adult HPI - General Chief complaint: Shortness of Breath/Dyspnea Stated complaint: soa Time Seen by Provider: 10/15/18 12:00 Mode of Arrival: Ambulatory Limitations: No Limitations Description of Symptoms (Recalled from ER Triage Doc. by RN): to ed per pvt car with c/o sob, cough, back pain x 1 week denies any fever, nausea, vomiting. pt states using inhalers at home with no relief. - History of Present Illness HPI narrative: Patient has a history of severe COPD. Uses oxygen 2 L as needed. She is on nebulizers 4 times a day. She continues to smoke. She now complains of shortness of breath, cough producing white sputum, wheezing for 1 week. Denies chest pain or fever. She has been using her oxygen off and on this week. She feels like she has bronchitis or pneumonia. - Related Data Home Medications Medication Instructions Recorded Confirmed Alendronate Sodium 70 mg PO WEEKLY 03/17/18 10/15/18 Levothyroxine Sodium 50 mcg PO DAILY 03/17/18 10/15/18 [Levothyroxine 25mcg (0.025mg) Tab] Metformin HCl [Metformin 1000mg 1,000 mg PO BID 03/17/18 10/15/18 Tablets] Rosuvastatin Calcium 10 mg PO HS 03/17/18 10/15/18 Tramadol HCl [Tramadol 50mg 50 mg PO Q6HP PRN 03/17/18 10/15/18 Tab] Albuterol Sulfate [Albuterol HFA 1 puff IH NEEDED PRN 03/18/18 10/15/18 Inhaler] Fluticasone/Salmeterol [Advair 1 puffs IH BIDRT 10/15/18 10/15/18 250/50mcg Diskus] Allergies Allergy/AdvReac Type Severity Reaction Status Date / Time Penicillins Allergy Severe TONGUE Verified 03/17/18 08:36 SWELLS doxycycline Allergy Mild I-RASH Verified 03/17/18 08:36 [facility] History - Hepatitis A Screen Drug use history?: No High risk sexual behaviors?: No History of sexually transmitted infection?: No Currently employed?: No Childcare worker?: No Do you have indoor plumbing?: Yes Do you have electricity?: Yes Attestation statement:: This patient has been screened for Hepatitis A risk factors. I have reviewed the patient's past medical history: Yes Medical History: Reports:: Chronic Obstructive Pulmonary Disease (COPD), Diabetes Mellitus Type 2, Home Oxygen (HS and during the day as needed), Hyperlipidemia, Osteoporosis Denies:: Cancer, Diabetes Mellitus Type 1, MRSA Other Medical History: Reports: Arthritis, Hypothyroidism, Osteoporosis Other Surgeries: Yes: Hysterectomy-Total Amputation: No - Social History Smoking Status: Current every day smoker Tobacco Type: cigarettes # Packs/Day (cigarettes): 1 Alcohol Intake: never Occupational Status: retired Family Hx:: Diabetes ROS Obtained: Yes All systems reviewed & no additional complaints - Constitutional Constitutional: Denies fever(s) - Cardiovascular Cardiovascular: Denies chest pain - Respiratory Respiratory: Yes cough, Yes dyspnea, Yes wheezing - Gastrointestinal Gastrointestingal: Denies: abdominal pain, vomiting Physical Exam - General General appearance: alert, in no apparent distress - Head Head exam: atraumatic, normocephalic - Eye Eye exam: Present: normal appearance, EOMI - ENT ENT exam: Present: mucous membranes moist - Neck Neck exam: Present: normal inspection, trachea midline - Chest Chest inspection: Present: normal inspection, symmetric chest wall rise - Respiratory Respiratory exam: Present: wheezes - Cardiovascular Cardiovascular exam: Present: regular rate, normal rhythm, normal heart sounds - Abdominal Exam Abdominal exam: Present: soft, normal bowel sounds. Absent: distention, tenderness - Extremities Exam Extremities exam: Present: normal inspection - Neurological Exam Neurological exam: Present: alert, oriented X3 - Psychiatric Psychiatric exam: Present: normal affect, normal mood - Skin Skin exam: Present: warm, dry
[2018-10-15 12:06] LABS: Lymphocytes % 7 % (10-50); Monocytes % 5 % (2-9); Neutrophils % 88 % (42-76); RBC Morphology Normal; Total Cells Counted 100
--- NOTE | 2018-10-16 08:36 | History & Physical Report ---
*Admission Date: 10/15/18 *Chief complaint: Shortness of breath *History of present illness: 67-year-old female presented to the emergency department yesterday with increasing dyspnea over the prior week. She has known COPD and uses oxygen intermittently at home. Unfortunately she continues to smoke. Patient had developed increased cough with increased shortness of breath. Cough was productive of clear or white sputum. She denies fevers or chills at home. Despite her symptoms she was only using her oxygen for brief periods of time at home. Her primary care physician is Dr. Yap. Patient did not go see Dr. Yap. She presented to the emergency department where she had increased work of breathing, wheezes and rhonchi on exam and mild hypoxia that was relieved with application of supplemental oxygen via nasal cannula. Decision was made to admit the patient for inpatient treatment of COPD exacerbation. This morning the patient reports feeling slightly better. She is still quite dyspneic with any exertion, such as to the bathroom. She denies fevers or chills. [facility] History I have reviewed the patient's past medical history: Yes Medical History: Reports:: Chronic Obstructive Pulmonary Disease (COPD), Diabetes Mellitus Type 2, Home Oxygen (HS and during the day as needed), Hyperlipidemia, Osteoporosis Denies:: Cancer, Diabetes Mellitus Type 1, MRSA *Have you ever received a pneumonia vaccine?: Yes *Have you received a flu vaccine this season?: No Other Medical History: Reports: Arthritis, Hypothyroidism, Osteoporosis Other Surgeries: Yes: Hysterectomy-Total Amputation: No - *Social History Educational Level: Attended College Smoking Status: Current every day smoker Tobacco Type: cigarettes # Packs/Day (cigarettes): 1 Alcohol Intake: never *Occupational Status:: retired Household Members: spouse *Travel in the last 8 weeks: None Family Hx:: Diabetes Review of Systems - Review of Systems Review of systems:: pertinent systems reviewed and negative unless documented below Meds Home Medications Medication Instructions Recorded Confirmed Type Alendronate Sodium 70 mg PO WEEKLY 03/17/18 10/15/18 History Levothyroxine Sodium 50 mcg PO DAILY 03/17/18 10/15/18 History [Levothyroxine 25mcg (0.025mg) Tab] Metformin HCl [Metformin 1000mg 1,000 mg PO BID 03/17/18 10/15/18 History Tablets] Rosuvastatin Calcium 10 mg PO HS 03/17/18 10/15/18 History Tramadol HCl [Tramadol 50mg 50 mg PO Q6HP PRN 03/17/18 10/15/18 History Tab] Albuterol Sulfate [Albuterol HFA 1 puff IH NEEDED PRN 03/18/18 10/15/18 History Inhaler] Fluticasone/Salmeterol [Advair 1 puffs IH BIDRT 10/15/18 10/15/18 History 250/50mcg Diskus] Allergies Allergy/AdvReac Type Severity Reaction Status Date / Time Penicillins Allergy Severe TONGUE Verified 03/17/18 08:36 SWELLS doxycycline Allergy Mild I-RASH Verified 03/17/18 08:36 Exam Vital signs and Labs for Last 24 Hours: Temp Pulse Resp BP Pulse Ox 97.8 F 80 21 106/56 L 91 L 10/16/18 07:54 10/16/18 07:54 10/16/18 07:54 10/16/18 07:54 10/16/18 07:54 Laboratory Results - last 24 hr 10/15/18 10:50: WBC 12.8 H, RBC 4.76, Hgb 13.6, Hct 42.1, MCV 88.5, MCH 28.5, MCHC 32.2, RDW 13.1, Plt Count 416, MPV 7.3 L, Neut % (Auto) 86.3 H, Lymph % (Auto) 8.4 L, [place] % (Auto) 4.7, Eos % (Auto) 0.2, Baso % (Auto) 0.3, Neut # (Auto) 11.0 H, Lymph # (Auto) 1.1, [place] # (Auto) 0.6, Eos # (Auto) 0.0, Baso # (Auto) 0.0, Total Counted 100, Neutrophils % (Manual) 88 H, Lymphocytes % (Manual) 7 L, Monocytes % (Manual) 5, Platelet Estimate Normal, RBC Morphology Normal 10/15/18 10:50: Sodium 134 L, Potassium 4.4, Chloride 97 L, Carbon Dioxide 26, Anion Gap 15.4 H, BUN 16, Creatinine 0.86, Estimated Creat Clear 43, Estimated GFR 65, Est GFR ( Amer) 79, Glucose 180 H, Calcium 9.4, Troponin I 0.11 H 10/15/18 10:50: Lactate 1.1 10/15/18 16:10: Troponin I 0.07 H 10/15/18 16:35: POC Glucose 285 H 10/15/18 19:15: Troponin I 0.05 10/15/18 20:49: POC Glucose 292 H 10/16/18 05:19: POC Glucose 170 H I & O for Last 24 hours: Intake & Output 10/13/18 10/14/18 10/15/18 10/16/18 11:59 11:59 11:59 11:59 Intake Total 1873 / 1873 Output Total 100 / 100 Balance 1773 / 1773 Weight 112 lb 107 lb 4 oz Microbiology Reports for the Last 24 Hours: Microbiology 10/15/18 11:00 Sputum - Expectorated Sputum Gram Stain - Final 10/15/18 11:00 Sputum - Expectorated Sputum Sputum Culture - Preliminary Narrative: Thin female in no distress. ENT exam reveals normal external ears, moist oropharynx. Neck has no palpable lymphadenopathy. Lungs have fair aeration with rhonchi and expiratory wheezes. Heart has a regular rate and rhythm. Abdomen is thin and soft. Extremities have JONA hose in place and there is no pedal edema. Assessment and Plan (1) COPD exacerbation Current visit: Yes Status: Acute Category: Medical Code(s): J44.1 - Chronic obstructive pulmonary disease with (acute) exacerbation - Assessment and plan all Dx Assessment and Plan for all problems:: Patient is showing signs of improvement and we will continue steroids, antibiotics, aerosols. Patient should leave her oxygen on and not remove it. I have asked her to increase her ambulation.
--- NOTE | 2018-10-16 08:42 | Pharmacy Consult Notes ---
[facility] Pharmacy VTE Monitoring - Patient Demographics Admission date: 10/15/18 Report Date: 10/16/18 Time: 08:42 Allergies/Adverse Reactions: Patient Allergies Penicillins Allergy (Severe, Verified 03/17/18 08:36) TONGUE SWELLS doxycycline Allergy (Mild, Verified 03/17/18 08:36) I-RASH Height: 1.57 m Weight: 48.648 kg Patient Problems: Current Active Problems COPD exacerbation (Acute) Acute bronchitis (Acute) Elevated troponin (Acute) - VTE Risk Labs: VTE Related Lab Results Hgb 13.6 g/dL (12.2-16.2) 10/15/18 10:50 Hct 42.1 % (37.0-47.0) 10/15/18 10:50 Plt Count 416 K/mm3 (142-424) 10/15/18 10:50 BUN 16 mg/dL (7-18) 10/15/18 10:50 Creatinine 0.86 mg/dL (0.55-1.02) 10/15/18 10:50 Estimated Creat Clear 43 mL/min (50-200) 10/15/18 10:50 Was VTE Risk Assessment Performed: Yes VTE Score: 4 VTE Risk Level: Low Risk - Prophylaxis VTE Prophylaxis Ordered?: Yes Types of VTE Prophylaxis: TEDS Knee High Location of Applied Device: Bilateral Lower Extremeties - VTE Diagnosis Confirmed Treatment or plan recommended: Continue Current Treatment
[2018-10-16 08:50] LABS: Eosinophils % 0.2 % (0.1-12.0); Hematocrit 39.3 % (37.0-47.0); Lymphocytes # 0.8 K/mm3 (0.7-4.5); Lymphocytes % 6.7 % (10-50); Mean Corpuscular Volume 90.2 fl (81-99); Mean Platelet Volume 7.6 fl (7.4-10.4); Monocytes # 0.3 K/mm3 (0.1-1.0); Monocytes % 2.6 % (1.7-9.3); Neutrophils # 11.3 K/mm3 (1.8-7.8); Neutrophils % 90.6 % (37.0-80.0); Platelet Count 436 K/mm3 (142-424); Red Blood Count 4.36 M/mm3 (4.20-5.40); Red Cell Distribution Width 13.1 % (11.5-17.5); White Blood Count 12.5 K/mm3 (4.8-10.8)
[2018-10-16 09:17] LABS: Hemoglobin 12.3 g/dL (12.2-16.2)
[2018-10-16 15:04] LABS: Lymphocytes % 4 % (10-50); Monocytes % 4 % (2-9); Neutrophils % 82 % (42-76); Total Cells Counted 100
--- NOTE | 2018-10-17 08:38 | Progress Note ---
Internal Medicine - PN: Subj *Date: 10/17/18 *Time: 08:37 Interval history: Patient reports slight improvement in her level of dyspnea although she admits she had a "episode" overnight the left her quite short of breath. She still has significant dyspnea on exertion. Exam Vital signs and Labs for Last 24 Hours: Temp Pulse Resp BP Pulse Ox 97.8 F 69 20 114/61 95 10/17/18 04:00 10/17/18 05:20 10/17/18 04:00 10/17/18 04:00 10/17/18 05:20 Laboratory Results - last 24 hr 10/16/18 08:20: WBC 12.5 H, RBC 4.36, Hgb 12.3, Hct 39.3, MCV 90.2, MCH 28.0, MCHC 31.0 L, RDW 13.1, Plt Count 436 H, MPV 7.6, Neut % (Auto) 90.6 H, Lymph % (Auto) 6.7 L, [place] % (Auto) 2.6, Eos % (Auto) 0.2, Baso % (Auto) 0.0 L, Neut # (Auto) 11.3 H, Lymph # (Auto) 0.8, [place] # (Auto) 0.3, Eos # (Auto) 0.0, Baso # (Auto) 0.0, Total Counted 100, Neutrophils % (Manual) 82 H, Band Neutrophils % 10.0 H, Lymphocytes % (Manual) 4 L, Monocytes % (Manual) 4, Platelet Estimate Slight increase, RBC Morphology Not Reportable 10/16/18 11:29: POC Glucose 292 H 10/16/18 16:53: POC Glucose 129 H 10/16/18 20:55: POC Glucose 234 H 10/17/18 05:23: POC Glucose 234 H I & O for Last 24 hours: Intake & Output 10/14/18 10/15/18 10/16/18 10/17/18 11:59 11:59 11:59 11:59 Intake Total 1873 / 1873 700 / 700 Output Total 100 / 100 475 / 475 Balance 1773 / 1773 225 / 225 Weight 112 lb 107 lb 4 oz 110 lb 4.015 oz Microbiology Reports for the Last 24 Hours: Microbiology 10/15/18 11:00 Sputum - Expectorated Sputum Gram Stain - Final 10/15/18 11:00 Sputum - Expectorated Sputum Sputum Culture - Preliminary Narrative: Patient does not appear to be in any distress. Lungs have fair aeration with diffuse expiratory wheezes. Heart has a regular rate and rhythm. Assessment and Plan (1) COPD exacerbation Current visit: Yes Status: Acute Category: Medical Code(s): J44.1 - Chronic obstructive pulmonary disease with (acute) exacerbation - Assessment and plan all Dx Assessment and Plan for all problems:: Continue steroids and IV azithromycin as well as aerosols. Patient is slowly improving
--- NOTE | 2018-10-17 17:08 | Electrocardiograph Report ---
APPROVED REPORT Exam: Resting ECG HR:102 bpm ECG Measurements Heart Rate 102 AXES LA 156 P 68 QRSd 64 QRS 71 QT 306 T96 QTc 398 <Conclusion> Sinus tachycardia Biatrial enlargement Low voltage QRS Incomplete RBBB Abnormal ECG Electronically signed by : Shai Yap, 10/17/2018 17:08:01
[2018-10-18 06:37] LABS: Basophils % 0.1 % (0.1-2.0); Hematocrit 38.7 % (37.0-47.0); Hemoglobin 11.9 g/dL (12.2-16.2); Lymphocytes # 0.9 K/mm3 (0.7-4.5); Lymphocytes % 7.3 % (10-50); Mean Corpuscular HGB Conc 30.8 g/dL (31.8-35.4); Mean Corpuscular Volume 92.5 fl (81-99); Monocytes # 0.7 K/mm3 (0.1-1.0); Monocytes % 5.1 % (1.7-9.3); Neutrophils # 11.2 K/mm3 (1.8-7.8); Neutrophils % 87.5 % (37.0-80.0); Platelet Count 592 K/mm3 (142-424); Red Blood Count 4.18 M/mm3 (4.20-5.40); Red Cell Distribution Width 13.1 % (11.5-17.5); White Blood Count 12.7 K/mm3 (4.8-10.8)
--- NOTE | 2018-10-18 10:52 | Progress Note ---
Internal Medicine - PN: Subj *Date: 10/18/18 *Time: 08:30 Interval history: Overall Ms. Dobbs is stable. No significant improvement in her shortness of breath. Further history this morning elicits that she is not on any long-acting inhalers from her primary care physician nor has she ever seen a direct of real estate. She does wear oxygen at home, 2 L, generally just at night. Continues to have cough that is somewhat productive. No fevers, nausea, vomiting, chest pain. Exam Vital signs and Labs for Last 24 Hours: Temp Pulse Resp BP Pulse Ox 98.5 F 81 18 131/69 93 L 10/18/18 07:57 10/18/18 09:31 10/18/18 07:57 10/18/18 07:57 10/18/18 07:57 Laboratory Results - last 24 hr 10/17/18 11:15: POC Glucose 325 H* 10/17/18 16:11: POC Glucose 222 H 10/17/18 20:49: POC Glucose 287 H 10/18/18 05:53: WBC 12.7 H, RBC 4.18 L, Hgb 11.9 L, Hct 38.7, MCV 92.5, MCH 28.5, MCHC 30.8 L, RDW 13.1, Plt Count 592 H D, MPV 7.0 L, Neut % (Auto) 87.5 H, Lymph % (Auto) 7.3 L, [place] % (Auto) 5.1, Eos % (Auto) 0.0 L, Baso % (Auto) 0.1, Neut # (Auto) 11.2 H, Lymph # (Auto) 0.9, [place] # (Auto) 0.7, Eos # (Auto) 0.0, Baso # (Auto) 0.0 I & O for Last 24 hours: Intake & Output 10/15/18 10/16/18 10/17/18 10/18/18 23:59 23:59 23:59 23:59 Intake Total 480 / 630 2093 / 2093 730 / 930 200 / 200 Output Total 400 / 400 375 / 375 200 / 200 Balance 480 / 630 1693 / 1693 355 / 555 0 / 0 Weight 47.797 kg 48.648 kg 50.009 kg 51.71 kg Microbiology Reports for the Last 24 Hours: Microbiology 10/15/18 11:00 Sputum - Expectorated Sputum Gram Stain - Final 10/15/18 11:00 Sputum - Expectorated Sputum Sputum Culture - Preliminary Gram Negative Rods 10/15/18 10:56 Blood Blood Culture - Preliminary NO GROWTH AFTER 48 HOURS Narrative: GEN: Thin, chronically ill-appearing woman who is sitting upright in bed wearing oxygen at 2.5 L/min by nasal cannula. Dyspneic on interview. HEENT: EOMI, PERRL, MMM. Neck: No adenopathy or JVD Chest: Barrell chested, symmetrical expansion; very prolonged expiratory phase of ventilation with end expiratory, high-pitched wheezes. Heart: RRR, muffled heart sounds; No murmur Abdomen: Bowel sounds active; scaphoid; soft, nontender, no masses or organomegaly. Extremities: No edema or clubbing. Neurological: Grossly intact, no focal deficits, A&O x 3 Assessment and Plan (1) COPD exacerbation Current visit: Yes Status: Acute Category: Medical Code(s): J44.1 - Chronic obstructive pulmonary disease with (acute) exacerbation (2) Chronic respiratory failure Current visit: Yes Status: Chronic Qualifiers: Respiratory failure complication: hypoxia Qualified Code(s): J96.11 - Chronic respiratory failure with hypoxia Category: Medical Code(s): J96.10 - Chronic respiratory failure, unspecified whether with hypoxia or hypercapnia - Assessment and plan all Dx Assessment and Plan for all problems:: Chronically ill-appearing female with COPD exacerbation. Severity unclear as we have no PFTs. Has never seen direct of real estate. Will consult pulmonology for their recommendations today as Dr. Cisneros is in the office. Initiate on Bevespi as patient is not on a long-acting inhaler. Continue nebulizers every 4 hours. Will broaden antibiotic coverage to include a wu quinolone. Continue azithromycin (today is day 3/3 at 500 mg daily), continue steroids. Patient continues to be quite ill. Not stable at this time for discharge home. Continue inpatient management.
--- NOTE | 2018-10-18 12:19 | Consult Report ---
*Admission Date: 10/15/18 *Reason for consult:: COPD *History of present illness: Mrs. Dobbs is a 67-year-old woman who has had many years of progressive breathlessness on exertion and chronic cough culminating in the diagnosis of chronic obstructive pulmonary disease about 10 years ago. She has had many e xacerbations over the years and was hospitalized about 2 years ago for 12 days for bacteremic pneumococcal pneumonia. She was discharged on oxygen and still uses it as needed. She was hospitalized again for pneumonia in February of this year and was back to her baseline level of functioning until a week before this admission when she had a dramatic increase in cough, productive of scant amounts of yellow sputum and increased dyspnea to the point where she was breathless with activities of daily living. Since admission here, she has been treated with corticosteroids and antibiotics along with bronchodilators and continuous oxygen and feels a little better. She is still coughing and still feels quite weak. At her best, Mrs. Dobbs is short of breath walking perhaps 50 feet on level ground and, sometimes, when she goes to her mailbox and begins to walk back up the slight incline to her home, she feels she just will not make it. She has a daily cough which is productive of a few teaspoonfuls of white sputum. She has not had hemoptysis or chest pain and is unaware of any heart disease. She is generally comfortable at rest and sleeps fairly well. She is troubled by chronic low back pain and knows that she has osteoporosis. She has a very good appetite but has lost about 25 pounds or more over the last 5 years. She has diabetes and hypothyroidism but believes these metabolic disorders have been under good control. She has no symptoms of esophageal reflux and drinks a cou ple of cups of coffee every day. Mrs. Dobbs began smoking at the age of 14 and still smokes about 1-1/2 packages of cigarettes daily. When she was discharged from the hospital on 2016, she did not smoke for 4 months. Unfortunately, she started up again and has never been able to quit. Over the years, Dr. Yap has placed her on a number of inhalers but nothing has seemed to help. She uses albuterol by nebulizer several times a day at home. She has had the pneumococcal vaccine and gets the influenza vaccine seasonally. [facility] History Medical History: Reports:: Chronic Obstructive Pulmonary Disease (COPD), Diabetes Mellitus Type 2, Home Oxygen (HS and during the day as needed), Hyperlipidemia, Osteoporosis Denies:: Cancer, Diabetes Mellitus Type 1, MRSA *Have you ever received a pneumonia vaccine?: Yes *Have you received a flu vaccine this season?: No Other Medical History: Reports: Arthritis, Hypothyroidism, Osteoporosis Other Surgeries: Yes: Hysterectomy-Total Amputation: No - *Social History Educational Level: Attended College Smoking Status: Current every day smoker Tobacco Type: cigarettes # Packs/Day (cigarettes): 1 Alcohol Intake: never *Occupational Status:: retired Household Members: spouse *Travel in the last 8 weeks: None Comment: Her of many years is in good health although he had an episode of pancreatitis a year or so ago and now has brittle diabetes. Their daughter in a car accident. Their 2 sons are well as are their 4 grandchildren and 3 great-grandchildren. They live in their own home and have no pets currently. Family Hx:: Diabetes Comment: There is no family history of chronic lung disease or cancer. There is a family history of heart disease. Review of Systems - Review of Systems Review of systems:: pertinent systems reviewed and negative unless documented below - Constitutional Reports lack of energy - *Respiratory Comments: See HPI - *Gastrointestinal Comments: She has no gastrointestinal complaints. - *Musculoskeletal Comments: She has chronic pain in her low back which has dramatically improved in hospital on corticosteroids. Meds Home Medications Medication Instructions Recorded Confirmed Type Alendronate Sodium 70 mg PO WEEKLY 03/17/18 10/15/18 History Metformin HCl [Metformin 1000mg 1,000 mg PO BID 03/17/18 10/15/18 History Tablets] Rosuvastatin Calcium 10 mg PO HS 03/17/18 10/15/18 History Tramadol HCl [Tramadol 50mg 50 mg PO Q6HP PRN 03/17/18 10/15/18 History Tab] Albuterol Sulfate [Albuterol HFA 2 puff IH QIDP PRN 03/18/18 10/16/18 History Inhaler] Levothyroxine Sodium 50 mcg PO DAILY 10/16/18 10/16/18 History [Levothyroxine 50mcg (0.05mg) Tab] Allergies Allergy/AdvReac Type Severity Reaction Status Date / Time Penicillins Allergy Severe TONGUE Verified 03/17/18 08:36 SWELLS doxycycline Allergy Mild I-RASH Verified 03/17/18 08:36 Exam Vital signs and Labs for Last 24 Hours: Temp Pulse Resp BP Pulse Ox 98.5 F 81 18 131/69 93 L 10/18/18 07:57 10/18/18 09:31 10/18/18 07:57 10/18/18 07:57 10/18/18 07:57 Laboratory Results - last 24 hr 10/17/18 16:11: POC Glucose 222 H 10/17/18 20:49: POC Glucose 287 H 10/18/18 05:53: WBC 12.7 H, RBC 4.18 L, Hgb 11.9 L, Hct 38.7, MCV 92.5, MCH 28.5, MCHC 30.8 L, RDW 13.1, Plt Count 592 H D, MPV 7.0 L, Neut % (Auto) 87.5 H, Lymph % (Auto) 7.3 L, [place] % (Auto) 5.1, Eos % (Auto) 0.0 L, Baso % (Auto) 0.1, Neut # (Auto) 11.2 H, Lymph # (Auto) 0.9, [place] # (Auto) 0.7, Eos # (Auto) 0.0, Baso # (Auto) 0.0 10/18/18 11:10: POC Glucose 302 H* Mrs. Dobbs is a thin, chronically ill-appearing woman who is sitting upright in bed wearing oxygen at 2.5 L/min by nasal cannula. She is somewhat breathless in conversation and coughed occasionally during the interview. HEENT: Sclerae clear; conjunctivae pale; EOMs full; nasal mucosa unremarkable; oropharynx is normal. Neck: No adenopathy or JVD; right carotid 2-3+ left carotid 1+. No bruits. Chest: Increased AP diameter; symmetrical expansion; hyperresonance by percussion bilaterally; very prolonged expiratory phase of ventilation with end expiratory, high-pitched wheezes. Heart: PMI near xiphoid; muffled heart sounds; regular rhythm; no murmur. Abdomen: Bowel sounds diminished; scaphoid; soft, nontender, no masses or organomegaly. Skin: No rash Extremities: No edema or clubbing. Neurological: Grossly intact except that she has an obvious resting tremor. I & O for Last 24 hours: Intake & Output 10/15/18 10/16/18 10/17/18 10/18/18 23:59 23:59 23:59 23:59 Intake Total 480 / 630 2093 / 2093 730 / 930 200 / 200 Output Total 400 / 400 375 / 375 200 / 200 Balance 480 / 630 1693 / 1693 355 / 555 0 / 0 Weight 47.797 kg 48.648 kg 50.009 kg 51.71 kg Microbiology Reports for the Last 24 Hours: Microbiology 10/15/18 11:00 Sputum - Expectorated Sputum Gram Stain - Final 10/15/18 11:00 Sputum - Expectorated Sputum Sputum Culture - Preliminary Gram Negative Rods 10/15/18 10:56 Blood Blood Culture - Preliminary NO GROWTH AFTER 48 HOURS Internal Medicine - CN: Reslt - Labs CBC & Chem 7: 10/18/18 05:53 10/15/18 10:50 Labs: Short CBC 10/18/18 Range/Units 05:53 WBC 12.7 H (4.8-10.8) K/mm3 Hgb 11.9 L (12.2-16.2) g/dL Hct 38.7 (37.0-47.0) % Plt Count 592 H D (142-424) K/mm3 - Impressions I personally reviewed the chest x-ray performed on this admission and compared to prior x-rays. There is evidence of chronic air-trapping and I do think there may be a patchy infiltrate in the right upper lobe. Assessment and Plan (1) COPD exacerbation Current visit: Yes Status: Acute Category: Medical Code(s): J44.1 - Chr onic obstructive pulmonary disease with (acute) exacerbation - Assessment and plan all Dx Assessment and Plan for all problems:: Mrs. Dobbs appears to have very severe chronic obstructive pulmonary disease and she is suffering an acute exacerbation now, possibly related to pneumonia. Clearly, the most important thing for her to do is to quit smoking and I recommended a nicotine patch be placed while in the hospital and continued at the time of discharge. She may need another pharmacological therapy as well. Her family has been very supportive in trying to get her to quit but she has been unable to do so. I see that you have ordered Bevespi for her and this is a reasonable combination of long-acting bronchodilators to begin. Once she is porsha dy for discharge, I would refer her to pulmonary rehabilitation. She plans to get the influenza vaccine in the fall. Because of her long smoking history, I recommend a screening CT scan of the chest after discharge also. Once she is stable, I recommend full pulmonary function testing and a 6-minute walk test to determine her exercise capacity and whether she still needs oxygen. I suspect she will need it, at least for a time. My clinic here is closing in a few weeks but I would be happy to follow-up with her in [place], at least until a replacement is found. Thank you for the opportunity to participate in Mrs. Dobbs's care.
[2018-10-18 12:38] LABS: Lymphocytes % 9 % (10-50); Monocytes % 4 % (2-9); Neutrophils % 87 % (42-76); RBC Morphology Normal; Total Cells Counted 100
[2018-10-19 06:22] LABS: Basophils # 0.1 K/mm3 (0-0.2); Basophils % 0.4 % (0.1-2.0); Hemoglobin 11.5 g/dL (12.2-16.2); Lymphocytes # 1.1 K/mm3 (0.7-4.5); Lymphocytes % 7.3 % (10-50); Mean Platelet Volume 6.8 fl (7.4-10.4); Monocytes # 0.8 K/mm3 (0.1-1.0); Monocytes % 5.8 % (1.7-9.3); Neutrophils # 12.5 K/mm3 (1.8-7.8); Neutrophils % 86.4 % (37.0-80.0); Platelet Count 561 K/mm3 (142-424); Red Blood Count 4.07 M/mm3 (4.20-5.40); White Blood Count 14.5 K/mm3 (4.8-10.8)
[2018-10-19 06:28] LABS: Anion Gap 10.8 mEq/L (5-15); Calcium 8.5 mg/dL (8.5-10.1)
[2018-10-19 08:05] LABS: Lymphocytes % 8 % (10-50); Monocytes % 1 % (2-9); Neutrophils % 91 % (42-76); RBC Morphology Normal; Total Cells Counted 100
--- NOTE | 2018-10-19 08:20 | Discharge Summary ---
General - General Admission date:: 10/15/18 Discharge date: 10/19/18 HPI HPI: 67-year-old female presented to the emergency department yesterday with increasing dyspnea over the prior week. She has known COPD and uses oxygen intermittently at home. Unfortunately she continues to smoke. Patient had developed increased cough with increased shortness of breath. Cough was productive of clear or white sputum. She denies fevers or chills at home. D espite her symptoms she was only using her oxygen for brief periods of time at home. Her primary care physician is Dr. Yap. Patient did not go see Dr. Yap. She presented to the emergency department where she had increased work of breathing, wheezes and rhonchi on exam and mild hypoxia that was relieved with application of supplemental oxygen via nasal cannula. Decision was made to admit the patient for inpatient treatment of COPD exacerbation. This morning the patient reports feeling slightly better. She is still quite dyspneic with any exertion, such as to the bathroom. She denies fevers or chills. Hospital Course Hospital Course: Patient was admitted. She was placed on standard antibiotics and steroids for community acquired pneumonia and COPD exacerbation respectively. She did well with this. She was placed on Bevespi brand inhaler to help with her ongoing emphysematous inflammation which seemed to help her over the next 24 hours. Pulmonary consultation was obtained, reviewed and appreciated. This morning patient is closer to her baseline. She is been wearing her oxygen 24 hours daily in the hospital and O2 saturations have been in the 93%. She is able to walk around her room and do activities of daily living. Exam is somewhat improved. Plan will be to discharge home on all day oxygen, Bevespi, antibiotics and tara roids. She will see Dr. Yap next Wednesday. Pulmonary consultation at his discretion. She will continue her nebulizers 4 times daily and she states she has the medications for these at home. Again, we have recommended smoking cessation. Nicotine patch will be prescribed which she has been wearing in the hospital successfully. Objective Vital signs: Temp Pulse Resp BP Pulse Ox 98.2 F 76 20 139/66 94 L 10/19/18 04:00 10/19/18 05:58 10/19/18 04:00 10/19/18 04:00 10/19/18 04:00 Narrative: Chronically ill-appearing white female who appears older than her stated age. She is pleasant and talkative. Walking about the room with no significant respiratory distress. ENT exam clear. Cranial nerves intact. Lungs have poor air movement but symmetric. Some rhonchi bilaterally, this seems to be her baseline. Heart rate regular. Abdomen soft. No edema or clubbing or cyanosis. Neurologically she is intact. Results Labs on day of discharge: Labs from last 24 hours 10/19/18 10/19/18 10/19/18 05:54 05:54 05:38 WBC 14.5 H RBC 4.07 L Hgb 11.5 L Hct 37.0 MCV 91.0 MCH 28.2 MCHC 31.0 L RDW 13.0 Plt Count 561 H MPV 6.8 L Neut % (Auto) 86.4 H Lymph % (Auto) 7.3 L [place] % (Auto) 5.8 Eos % (Auto) 0.0 L Baso % (Auto) 0.4 Neut # (Auto) 12.5 H Lymph # (Auto) 1.1 [place] # (Auto) 0.8 Eos # (Auto) 0.0 Baso # (Auto) 0.1 Total Counted 100 Neutrophils % (Manual) 91 H Lymphocytes % (Manual) 8 L Monocytes % (Manual) 1 L Platelet Estimate Slight increase RBC Morphology Normal Sodium 140 Potassium 4.8 Chloride 104 Carbon Dioxide 30 Anion Gap 10.8 BUN 16 Creatinine 0.73 Estimated Creat Clear 45 Estimated GFR 79 Est GFR ( Amer) 96 Glucose 253 H POC Glucose 255 H Calcium 8.5 10/18/18 10/18/18 10/18/18 21:34 16:20 11:10 WBC RBC Hgb Hct MCV MCH MCHC RDW Plt Count MPV Neut % (Auto) Lymph % (Auto) [place] % (Auto) Eos % (Auto) Baso % (Auto) Neut # (Auto) Lymph # (Auto) [place] # (Auto) Eos # (Auto) Baso # (Auto) Total Counted Neutrophils % (Manual) Lymphocytes % (Manual) Monocytes % (Manual) Platelet Estimate RBC Morphology Sodium Potassium Chloride Carbon Dioxide Anion Gap BUN Creatinine Estimated Creat Clear Estimated GFR Est GFR ( Amer) Glucose POC Glucose 260 H 250 H 302 H* Calcium 10/18/18 05:53 WBC RBC Hgb Hct MCV MCH MCHC RDW Plt Count MPV Neut % (Auto) Lymph % (Auto) [place] % (Auto) Eos % (Auto) Baso % (Auto) Neut # (Auto) Lymph # (Auto) [place] # (Auto) Eos # (Auto) Baso # (Auto) Total Counted 100 Neutrophils % (Manual) 87 H Lymphocytes % (Manual) 9 L Monocytes % (Manual) 4 Platelet Estimate Normal RBC Morphology Normal Sodium Potassium Chloride Carbon Dioxide Anion Gap BUN Creatinine Estimated Creat Clear Estimated GFR Est GFR ( Amer) Glucose POC Glucose Calcium Preliminary micro results at discharge 10/15/18 10:56 Blood Culture - Preliminary Blood NO GROWTH AFTER 48 HOURS DS: Diagnosis - Discharge Diagnosis (1) COPD exacerbation Status: Acute (2) Chronic respiratory failure Status: Chronic (3) Centrilobular emphysema Status: Chronic Discharge Plan - Patient Discharge Instructions ACTIVITY: Continue current activity DIET: continue same diet Patient Instructions: Cardiac Troponin, DI for Chronic Obstructive Pulmonary Disease - Follow up Plan Follow up with: Shai Yap [Primary Care Provider] - 10/24/18 Disposition: Home, Self-Correction Medications: Home Medications Medication Instructions Recorded Confirmed Type Alendronate Sodium 70 mg PO WEEKLY 03/17/18 10/15/18 History Metformin HCl [Metformin 1000mg 1,000 mg PO BID 03/17/18 10/15/18 History Tablets] Rosuvastatin Calcium 10 mg PO HS 03/17/18 10/15/18 History Tramadol HCl [Tramadol 50mg 50 mg PO Q6HP PRN 03/17/18 10/15/18 History Tab] Albuterol Sulfate [Albuterol HFA 2 puff IH QIDP PRN 03/18/18 10/16/18 History Inhaler] Levothyroxine Sodium 50 mcg PO DAILY 10/16/18 10/16/18 History [Levothyroxine 50mcg (0.05mg) Tab] Glycopyrrolate/Formoterol Fum 10.7 gm IH QID #1 hfa.aer.ad 10/19/18 Rx [Bevespi Aerosphere Inhaler] Nicotine [Nicotine Patch 21 mg TD DAILY #30 patch 10/19/18 Rx 21mg/24hrs] levoFLOXacin [Levaquin 500mg 500 mg PO DAILY #7 tab 10/19/18 Rx tab] predniSONE [Deltasone 20mg 20 mg PO BID 7 Days #14 tab 10/19/18 Rx tablet] Prescriptions/Medication Reconciliation: New predniSONE [Deltasone 20mg tablet] 20 mg PO BID 7 Days #14 tab levoFLOXacin [Levaquin 500mg tab] 500 mg PO DAILY #7 tab Nicotine [Nicotine Patch 21mg/24hrs] 21 mg TD DAILY #30 patch Glycopyrrolate/Formoterol Fum [Bevespi Aerosphere Inhaler] 10.7 gm IH QID #1 hfa.aer.ad Continued Tramadol HCl [Tramadol 50mg Tab] 50 mg PO Q6HP PRN PRN Reason: Moderate Pain Rosuvastatin Calcium 10 mg PO HS Metformin HCl [Metformin 1000mg Tablets] 1,000 mg PO BID Albuterol Sulfate [Albuterol HFA Inhaler] 2 puff IH QIDP PRN PRN Reason: Shortness Of Breath Levothyroxine Sodium [Levothyroxine 50mcg (0.05mg) Tab] 50 mcg PO DAILY Alendronate Sodium 70 mg PO WEEKLY - Problem Reconciliation Problems Reviewed?: Yes
== END 2018-10-19 10:46 | disposition home or self-care (01) | DRG 191 ==
LOC: ER 10:26 → 2ND 10:26 → OBSVTOIN 12:34 → 2ND 13:29
PROVIDERS: ADMIT Family Medicine; ATTEND Internal Medicine Adolescent Medicine
CPT/HCPCS: 36415; 71020; 71046; 80048; 82962; 83605; 84484; 85007; 85025; 87040; 87070; 87077; 87186; 87205; 93005; 94640; 94761; 96365; 99285; J0456; J1956

== ENCOUNTER → 2020-09-16 12:48 | Outpatient (CLI) | payer MEDICARE, OTHER, SELFPAY ==
--- NOTE | 2020-09-16 12:54 | CT_ITS ---
PROCEDURE: CT THORACIC SPINE WO CON CLINICAL HISTORY: SEVERE COPD,CHEST PAIN,WEAKNESS Upper back pain COMPARISON: CT CTAC CTA-CHEST from 01/29/2017 DX,RF ESO ESOPHAGUS (BA. SWALLOW) from 01/29/2017 TECHNIQUE: Axial images obtained with sagittal and coronal reformats. All CT scans at the facility use one or more dose reduction, viz: automated exposure control, ma/kV adjustment per patient size (including targeted exams where dose is matched to indication, i.e. head), or iterative reconstruction technique. FINDINGS: There is normal alignment. There is exaggeration of the upper thoracic kyphosis similar to the previous CT of 01/29/2017. No acute fracture or dislocation is evident. There is degenerative disc disease at T2-T3, T3-T4, T4-T5, T5-T6, and T6-T7. There are small anterior osteophytes at T3, T4, T5, and T6. No acute fracture or dislocation. No lytic or blastic change IMPRESSION: 1. Degenerative changes with exaggerated upper thoracic kyphosis 2. Otherwise negative. Dictated by: David Beasley MD 09/16/2020 14:10 David Beasley MD in [place] 09/16/2020 14:10
--- NOTE | 2020-09-16 12:54 | CT_ITS ---
PROCEDURE: CT CHEST WO CON But CLINICAL INDICATION: SEVERE COPD,CHEST PAIN,WEAKNESS COMPARISON: CT CTAC CTA-CHEST from 01/29/2017 TECHNIQUE: Axial images obtained with sagittal and coronal reformats. All CT scans at the facility use one or more dose reduction, viz: automated exposure control, ma/kV adjustment per patient size (including targeted exams where dose is matched to indication, i.e. head), or iterative reconstruction technique. FINDINGS: HEART AND MEDIASTINAL STRUCTURES: There are extensive coronary artery calcifications. Small amount fluid is present in the superior recess of the pericardium. There is a small hiatal hernia. No mediastinal or hilar mass or adenopathy is evident. LUNGS AND PLEURAL SPACES: Centrilobular and paraseptal emphysema with scattered areas of scarring. There is a stable 4 mm nodule in the right upper lobe series 3, image 31. Small nodular opacity is present in the right lower lobe 7 by 3 mm. This is of questionable clinical significance having a somewhat linear shape. In the left upper lobe, has been interval development of a spiculated nodule 1.7 x 1.3 x 1.2 cm suspicious for malignancy. No effusions. No infiltrates. BONY STRUCTURES: Exaggerated thoracic kyphosis. No acute finding UPPER ABDOMEN: Unremarkable. ADDITIONAL FINDINGS: No other significant abnormalities. IMPRESSION: Interval development of a 1.7 cm spiculated left upper lobe nodule suspicious for malignancy. Recommend pulmonary consult. PET CT may provide further evaluation. No mediastinal or hilar adenopathy. COPD with centrilobular and paraseptal emphysema Coronary artery disease Dictated by: David Beasley MD 09/16/2020 14:24 David Beasley MD in [place] 09/16/2020 14:24
== END ==
PROVIDERS: PCP Internal Medicine; Visit Provider Internal Medicine
DX: J44.9 Chronic obstructive pulmonary disease, unspecified (principal); R07.9 Chest pain, unspecified; R53.1 Weakness; R63.4 Abnormal weight loss
CPT/HCPCS: 71250; 72128

== ENCOUNTER → 2020-10-07 07:39 | Outpatient (CLI) | payer MEDICARE, OTHER, SELFPAY ==
[2020-10-07 08:30] VITALS: PULSE 77
== END ==
PROVIDERS: PCP Internal Medicine; Visit Provider Internal Medicine Pulmonary Disease
DX: R06.00 Dyspnea, unspecified (principal)
CPT/HCPCS: 94060; 94618; 94640; 94726; 94729

== ENCOUNTER → 2020-11-08 12:16 | Outpatient (CLI) | payer MEDICARE, OTHER, SELFPAY | PROVIDERS: PCP Internal Medicine; Visit Provider Nurse Practitioner | DX: Z20.822 Contact with and (suspected) exposure to COVID-19 (principal) | CPT/HCPCS: C9803; U0003; U0005 ==

== ENCOUNTER 2021-03-13 14:02 | Inpatient (IN) | payer MEDICARE, OTHER, SELFPAY ==
[2021-03-13] VITALS (16 sets, daily range): BP systolic 115–171; BP diastolic 57–98; PULSE 66–91; RESP 18–19; TEMP 36.6–36.9; O2SAT 94–99; BMI 18.3; BMI 19.3
--- NOTE | 2021-03-13 14:10 | XR_ITS ---
FINAL REPORT CLINICAL HISTORY: fall x 4 days ago, hip pain FINDINGS: Left hip with pelvis. There is no acute fracture or dislocation. The joint spaces are intact. There are no soft tissue abnormalities. IMPRESSION: No acute process. Reviewed, Interpreted and Dictated by Dane Martinez MD Transcribed by Jose Barrientos Authenticated by Dane Martinez MD on 03/13/2021 03:17:30 PM [facility]
--- NOTE | 2021-03-13 14:13 | HMH.EDGENADL ---
ED Disposition Clinical Impression: Unable to walk Inferior pubic ramus fracture Qualifiers: Encounter type: initial encounter Fracture type: closed Laterality: left Qualified Code(s): S32.592A - Other specified fracture of left pubis, initial encounter for closed fracture Disposition: Admitted as Observation Condition on Discharge: Fair Referrals: Shai Yap [Primary Care Provider] - Time of Disposition: 16:45 - Critical Care Critical Care Time: No Attestation: On 03/13/21, the high probability of a clinically significant, sudden or life threatening deterioration of the following system(s) required my full and direct attention, intervention and personal management. The time I documented below is in addition to time spent performing reported procedures but includes the following listed in this critical care notation. Medical Decision Making - Medical Records Medical records reviewed: Yes: I reviewed the patient's medical records. - [place] Inquiry Pt receiving controlled substance: No Vital Signs: 03/13/21 14:02 03/13/21 14:08 03/13/21 14:30 Temperature 98.5 F Temperature Source Oral Pulse Rate 90 83 Pulse Rate [Left Radial] 89 Respiratory Rate 18 Blood Pressure 153/77 H 148/71 H Blood Pressure [Right Arm] 153/77 H Blood Pressure Mean [Right Arm] 102 Blood Pressure Source [Right Arm] Automatic Cuff Blood Pressure Position [Right Arm] Sitting 02 Sat by Pulse Oximetry 96 95 98 Oxygen Delivery Method Room Air 03/13/21 15:11 Temperature Temperature Source Pulse Rate 66 Pulse Rate [Left Radial] Respiratory Rate Blood Pressure 151/72 H Blood Pressure [Right Arm] Blood Pressure Mean [Right Arm] Blood Pressure Source [Right Arm] Blood Pressure Position [Right Arm] 02 Sat by Pulse Oximetry 77 L Oxygen Delivery Method Orders (Tests/Meds): ED MEDICATIONS Generic Name Dose Route Start Last Admin Trade Name Freq PRN Reason Stop Dose Admin Acetaminophen 650 mg 03/13/21 16:35 Acetaminophen 325mg Tab PO 04/12/21 16:34 Q4HP PRN Fever or Mild Pain Hydrocodone Bitart/Acetaminophen 1 tab 03/13/21 16:35 Hydrocodone/Apap 5/325 Mg Tablet PO 04/12/21 16:34 Q4HP PRN Mild to Moderate Pain Docusate Sodium 100 mg 03/14/21 09:00 Docusate Sodium 100 Mg Capsule PO 04/13/21 08:59 DAILY HITESH Pantoprazole Sodium 40 mg 03/14/21 09:00 Pantoprazole 40mg Tablet PO 04/13/21 08:59 DAILY HITESH Discontinued Medications Generic Name Dose Route Start Last Admin Trade Name Maricarmen PRN Reason Stop Dose Admin Hydrocodone Bitart/Acetaminophen 1 tab 03/13/21 14:23 03/13/21 14:35 Hydrocodone/Apap 5/325 Mg Tablet PO 03/13/21 14:24 1 tab ONCE ONE Administration ORDERS Category Date Time Status Consult to Orthopedic Surgery [CONS] Stat Cons 03/13/21 16:39 Ordered Basic Metabolic Panel AMLAB Lab 03/14/21 06:00 Ordered Complete Blood Count Auto Diff AMLAB Lab 03/14/21 06:00 Ordered Rapid PCR Covid and Flu A/B Stat Lab 03/13/21 16:10 Ordered - CT Data CT Scan: Pelvis Time Received: 16:[address] Reviewed: Yes: I have reviewed the patient's CT results, I have viewed the radiologist's interpretation Preliminary Findings: Abnormal Medical Decision Narrative: In summary this is a 70-year-old female presenting to the emergency department with left hip pain after a fall. Patient clinically stable on arrival. Vital signs within normal limits. She has tenderness to palpation over the groin and greater trochanter. Concern for hip or pelvic fracture. Will obtain x-rays of the left hip and pelvis. Given [place] for pain control X-ray of the left hip and pelvis shows no acute finding. CT scan of the pelvis obtained. CT scan concerning for a nondisplaced inferior pubic ramus fracture. On reassessment, she continues to have quite severe pain. She is unable to stand and walk on her own. Discussed options with patient and her gran
--- NOTE | 2021-03-13 14:30 | PC.NURSE ---
Radiology at bedside
--- NOTE | 2021-03-13 14:39 | XR_ITS ---
FINAL REPORT CLINICAL HISTORY: fall, left anterior hip pain FINDINGS: LEFT FEMUR 2 views were obtained. There is no acute fracture or dislocation. The joint spaces are intact. There is no soft tissue abnormality. IMPRESSION: No acute bony abnormality. Reviewed, Interpreted and Dictated by Dane Martinez MD Transcribed by Cherry Arthur Authenticated by Dane Martinez MD on 03/13/2021 04:25:51 PM [facility]
--- NOTE | 2021-03-13 14:39 | CT_ITS ---
FINAL REPORT CLINICAL HISTORY: fall, left hip pain FINDINGS: Axial images through the pelvis were performed by computed tomography. Sagittal and coronal reconstruction images were performed. This study was performed with techniques to keep radiation doses as low as reasonably achievable (ALARA). Individualized dose reduction techniques using automated exposure control or adjustment of mA and/or kV according to the patient's size were employed. There is a subtle nondisplaced fracture through the medial aspect of the superior and inferior left pubic rami. The symphysis pubis is intact. The hip joint spaces are preserved. The femoral heads have a normal smooth contour. No dislocation identified. There are moderate hypertrophic changes of degenerative disc disease in the lower lumbar spine. Calcified gallstones are noted in the gallbladder. IMPRESSION: Subtle nondisplaced fracture of the medial aspect of the superior and inferior left pubic rami. Symphysis pubis intact. Reviewed, Interpreted and Dictated by Dane Martinez MD Transcribed by Jose Barrientos Authenticated by Dane Martinez MD on 03/13/2021 03:24:[address] [facility]
--- NOTE | 2021-03-13 15:12 | PC.NURSE ---
Patient back from CT
--- NOTE | 2021-03-13 16:34 | PC.NURSE ---
Dr. Rutherford paged
--- NOTE | 2021-03-13 16:42 | PC.NURSE ---
spoke with Dr. Rutherfrod and consulted with Dr. Weaver. Dr. Rutherford agreed to admit patient. House notified of admission.
--- NOTE | 2021-03-13 16:50 | PC.NURSE ---
1640 bed assignment requested, room 206. all staff notified
[2021-03-13 17:01] LABS: Coronavirus 19, PCR Not Detected (NotDetected); Influenza A, PCR Not Detected (NotDetected); Influenza B, PCR Not Detected (NotDetected)
[2021-03-14 04:00] VITALS: BP 122/76; PULSE 72; RESP 17; TEMP 36.7; O2SAT 99
--- NOTE | 2021-03-14 04:14 | PC.NURSE ---
Pt has rested well this shift with no complaints. Pt has denied pain when asked and has had no requests. VS remain stable. Will continue to monitor.
[2021-03-14 05:00] VITALS: BMI 19.4
[2021-03-14 07:04] LABS: Basophils # 0.1 K/mm3 (0-0.2); Basophils % 1.8 % (0.1-2.0); Eosinophils # 0.2 K/mm3 (0.0-0.4); Eosinophils % 3.1 % (0.1-12.0); Hematocrit 35.7 % (37.0-47.0); Hemoglobin 11.6 g/dL (12.2-16.2); Lymphocytes # 1.3 K/mm3 (0.7-4.5); Lymphocytes % 21.8 % (10-50); Mean Corpuscular HGB Conc 32.4 g/dL (31.8-35.4); Mean Corpuscular Hemoglobin 30.2 pg (27.0-31.2); Mean Corpuscular Volume 93.1 fl (81-99); Mean Platelet Volume 7.9 fl (7.4-10.4); Monocytes # 0.6 K/mm3 (0.1-1.0); Monocytes % 10.3 % (1.7-9.3); Neutrophils # 3.7 K/mm3 (1.8-7.8); Platelet Count 321 K/mm3 (142-424); Red Blood Count 3.83 M/mm3 (4.20-5.40); Red Cell Distribution Width 13.4 % (11.5-17.5); White Blood Count 5.9 K/mm3 (4.8-10.8)
--- NOTE | 2021-03-14 07:19 | HMH.PHAVTE ---
[facility] Pharmacy VTE Monitoring - Patient Demographics Admission date: 03/13/21 Report Date: 03/14/21 Time: 07:19 Allergies/Adverse Reactions: Patient Allergies Penicillins Allergy (Severe, Verified 09/25/20 10:11) TONGUE SWELLS doxycycline Allergy (Mild, Verified 09/25/20 10:11) I-RASH Height: 1.57 m Weight: 47.882 kg Patient Problems: Current Active Problems Inferior pubic ramus fracture (Acute) Unable to walk (Acute) - VTE Risk Labs: VTE Related Lab Results Hgb 11.6 g/dL (12.2-16.2) L 03/14/21 06:28 Hct 35.7 % (37.0-47.0) L 03/14/21 06:28 Plt Count 321 K/mm3 (142-424) 03/14/21 06:28 - Prophylaxis VTE Prophylaxis Ordered?: Yes Types of VTE Prophylaxis: TEDS Knee High Location of Applied Device: Bilateral Lower Extremeties
--- NOTE | 2021-03-14 07:24 | HMH.PHAINT ---
verified pt home meds via fill history from pharmacy
[2021-03-14 07:25] LABS: Blood Urea Nitrogen 16 mg/dl (7-17); Calcium 9.2 mg/dl (8.4-10.2); Carbon Dioxide 28 mmol/L (22.0-30.0); Chloride 104 mmol/L (98-107); Creatinine Clearance Estimated 38 mL/min (50-200); Estimated Glomerular Filt Rate 98 ml/min (>60); GFR (African American) 119 ML/MIN (>60); Glucose 129 mg/dl (74-100); Sodium 136 mmol/L (136-145)
[2021-03-14 08:00] VITALS: BP 146/59; PULSE 70; RESP 18; TEMP 36.8; O2SAT 100
[2021-03-14 09:59] VITALS: BMI 19.3
--- NOTE | 2021-03-14 10:31 | HMH.ORTHOCON ---
*Admission Date: 03/13/21 <Ligia Mancilla 03/14/21 10:38> *Reason for consult:: left pubic rami fracture <Ligia Mancilla 03/14/21 10:38> *History of present illness: Patient is a 70-year-old female admitted to the acute inpatient service from the [facility] ED on 03/13/2021 after sustaining a fall at home. She reports that approximately 5 days ago she was reaching up to turn off her ceiling fan, lost her balance, and fell on her left side. She reports that she had immediate pain in the left hip at that time, but that it became tolerable. She states that she was doing fine until yesterday when she noticed she was unable to get up and walk which prompted her to be seen in the ED. This morning she is lying comfortably in bed. Today she continues to report left hip pain but states it is well controlled with pain medication. At baseline she does not use any walking aids, although she states that she has used a cane the past few days since her fall. She lives at home with her and is independent for all her activities of daily living. She denies any other injuries, dizziness, chest pain, palpitations, weakness, or distal tingling/numbness. Her past medical history is significant for osteoporosis, hypothyroidism, COPD, and diabetes type 2. She denies any other symptoms or concerns at this time. <Ligia Mancilla 03/14/21 11:11> [facility] History Medical History: Reports:: Chronic Obstructive Pulmonary Disease (COPD), Diabetes Mellitus Type 2, Home Oxygen, Hyperlipidemia, Osteoporosis Denies:: Cancer, Diabetes Mellitus Type 1, MRSA <Ligia Mancilla 03/14/21 10:38> *Have you ever received a pneumonia vaccine?: Yes <Ligia Mancilla 03/14/21 10:38> *Have you received a flu vaccine this season?: Yes <Ligia Mancilla 03/14/21 10:38> Other Medical History: Reports: Arthritis, Hypothyroidism, Osteoporosis <Ligia Mancilla 03/14/21 10:38> Other Surgeries: Yes: Hysterectomy-Total <Ligia Mancilla 03/14/21 10:38> Amputation: No <Ligia Mancilla 03/14/21 10:38> Fractures: No <MancillaLigia 03/14/21 10:38> - *Social History Last grade of school completed: High school graduate <Ligia Mancilla 03/14/21 10:38> Smoking Status: Current every day smoker <Ligia Mancilla 03/14/21 10:38> Tobacco Type: cigarettes <Ligia Mancilla 03/14/21 10:38> # Packs/Day (cigarettes): 1 <Ligia Mancilla 03/14/21 10:38> Alcohol Intake: never <Ligia Mancilla 03/14/21 10:38> *Occupational Status:: retired <Ligia Mancilla 03/14/21 10:38> Housing: house <Ligia Mancilla 03/14/21 10:38> Household Members: spouse <Ligia Mancilla 03/14/21 10:38> *Travel in the last 8 weeks: None <Ligia Mancilla 03/14/21 10:38> Family Hx:: No significant family history <Ligia Mancilla 03/14/21 10:38> Review of Systems - Review of Systems Review of systems:: pertinent systems reviewed and negative unless documented below <Ligia Mancilla 03/14/21 10:56> - Constitutional Denies body ache(s), Denies chills, Denies fatigue, Denies fever(s), Denies headache(s), Denies weakness <Ligia Mancilla 03/14/21 10:56> - Eyes Denies blurry vision, Denies change in vision, Denies loss of vision <Ligia Mancilla 03/14/21 10:56> - ENT Denies abnormal hearing, Denies dizziness, Denies difficulty swallowing, Denies nasal congestion, Denies nasal discharge, Denies neck pain, Denies pain with swallowing, Denies sore throat <Ligia Mancilla 03/14/21 10:56> - *Cardiovascular Denies chest pain, Denies chest pain at rest, Denies chest pain with activity, Denies shortness of breath <Ligia Mancilla 03/14/21 10:56> - *Respiratory Denies chest congestion, Denies cough, Denies shortness of breath, Denies pain on inspiration, Denies wheezing <Ligia Mancilla - 03/14/21 10:56> - *Gastrointestinal Denies abdominal pain, Denies constipation, Denies difficulty swallowing, Denies nausea, Denies vomiting <Ligia Mancilla -
--- NOTE | 2021-03-14 11:48 | HMH.PTEV ---
Physical Therapy Evaluation Rehab PT IP Evaluation Start: 03/13/21 16:40 Freq: ONCE Status: Active Protocol: Document 03/14/21 11:41 KATIE (Rec: 03/14/21 11:48 KATIE [id number]) Subjective/History History History Patient is a 70 year old female admitted to [facility] 03/13/21 after sustaining a left non- displaced superior/inferior pubic rami fracture after a fall at home approximatley 5 days ago. Patient reports that she was previously independent with ambulation at home where she lives with her . Paient reports no stairs to negotiate in the household. Subjective Subjective I'm not really having any pain right now. The doctors told me I shouldn't stand up. Patient was able to achieve EOB independently, but refused to stand or walk. Rehab PT IP Eval Objective Appearance Patient Behavior Appropriate,Cooperative Patient Orientation Person,Place,Birthday Difficulty following instructions none Speech Pattern Clear,Appropriate Ambulation Patient Able to Ambulate No Balance Sitting Balance Steady, safe Dynamic Sitting Balance Ability Normal Transfers Bed Transfer Ability Independent Pain Left Groin Pain Intensity 2 ROM All Extremities PT ROM Status WFL MMT All Extremities PT MMT WFL Rehab PT IP prob,goals,plan Problems Date of Evaluation: 03/14/21 PT IP Problems Transfers,Gait,Balance,Self care,Safety Rehab Potential Rehab Potential Good Equipment Needs Assistive Devices Rolling / Wheeled Walker Plan PT Intervention Plan Bed Mobility,Transfers,Gait, Balance,Self care,Safety, Therapeutic Exercise PT Plan Frequency BID Duration LOS Discharge Goals Bed Transfer Ability Independent Sit to Stand Chair Transfer Ability Contact Guard/Hand Hold Ambulation Assistive Device Rolling Walker Ambulation Distance (feet) 20 Discharge Plan PT Discharge Plan Patient set to discharge home with caregiver once deemed medi
--- NOTE | 2021-03-14 12:41 | HMH.HP ---
*Admission Date: 03/13/21 *Chief complaint: pelvic fracture *History of present illness: 70 yo female Fell Wednesday Subsequent pain, has been unable to stand or walk. Presented to ER and imaging revealed subtle non-displaced fracture left superior/inferior pubic ramus, seen on CT pelvis Known osteoporosis. Lives with . [facility] History Medical History: Reports:: Chronic Obstructive Pulmonary Disease (COPD), Diabetes Mellitus Type 2, Home Oxygen, Hyperlipidemia, Osteoporosis Denies:: Cancer, Diabetes Mellitus Type 1, MRSA *Have you ever received a pneumonia vaccine?: Yes *Have you received a flu vaccine this season?: Yes Other Medical History: Reports: Arthritis, Hypothyroidism, Osteoporosis Other Surgeries: Yes: Hysterectomy-Total Amputation: No Fractures: No - *Social History Last grade of school completed: High school graduate Smoking Status: Current every day smoker Tobacco Type: cigarettes # Packs/Day (cigarettes): 1 Alcohol Intake: never *Occupational Status:: retired Housing: house Household Members: spouse *Travel in the last 8 weeks: None Family Hx:: No significant family history Review of Systems - Constitutional Denies fever(s) - Eyes Denies change in vision - ENT Denies abnormal hearing - *Cardiovascular Denies chest pain - *Respiratory Denies cough - *Gastrointestinal Denies abdominal pain - *Genitourinary Denies painful urination - *Musculoskeletal Reports abnormal walking, Reports joint pain, Reports decreased muscle mass - Integumentary/Breasts Denies yellowing of the skin - *Neurologic Reports abnormal walking, Denies abnormal hearing, Denies abnormal speech, Denies dizziness, Denies localized weakness, Denies headache(s), Denies loss of vision, Denies numbness, Denies sensory deficit, Denies tingling, Denies weakness - Psychiatric Denies behavioral changes - Endocrine Denies cold intolerance, Denies excessive sweating - Hematologic/Lymphatic Denies easy bleeding, Denies easy bruising Meds Home Medications Medication Instructions Recorded Confirmed Type Alendronate Sodium 70 mg PO WEEKLY 03/17/18 03/13/21 History Metformin HCl [Metformin 1000mg 1,000 mg PO BID 03/17/18 03/13/21 History Tablets] Tramadol HCl [Tramadol 50mg 50 mg PO Q6HP PRN 03/17/18 03/13/21 History Tab] Albuterol Sulfate [Ventolin HFA 2 puff IH QIDP PRN 03/18/18 03/13/21 History Inhaler] Levothyroxine Sodium 50 mcg PO DAILY 10/16/18 03/13/21 History [Levothyroxine 50mcg (0.05mg) Tab] Fluticasone Propion/Salmeterol 1 puff INHALATION BID 03/14/21 03/14/21 History [Fluticasone-Salmeterol 500-50] Simvastatin [Zocor 20mg] 20 mg PO HS 03/14/21 03/14/21 History Tiotropium [place] [Spiriva 1 cap IH DAILY 03/14/21 03/14/21 History 18mcg/puff inhaler] Allergies Allergy/AdvReac Type Severity Reaction Status Date / Time Penicillins Allergy Severe TONGUE Verified 09/25/20 10:11 SWELLS doxycycline Allergy Mild I-RASH Verified 09/25/20 10:11 Exam Vital signs and Labs for Last 24 Hours: Temp Pulse Resp BP Pulse Ox 98.2 F 70 18 146/59 H 100 03/14/21 08:00 03/14/21 08:00 03/14/21 08:00 03/14/21 08:00 03/14/21 08:00 Laboratory Results - last 24 hr 03/13/21 16:10: SARS-CoV-2 (PCR) Not detected, Influenza A Untype (PCR) Not detected, Influenza Type B (PCR) Not detected 03/14/21 06:28: WBC 5.9, RBC 3.83 L, Hgb 11.6 L, Hct 35.7 L, MCV 93.1, MCH 30.2, MCHC 32.4, RDW 13.4, Plt Count 321, MPV 7.9, Neut % (Auto) 63.0, Lymph % (Auto) 21.8, Wallace % (Auto) 10.3 H, Eos % (Auto) 3.1, Baso % (Auto) 1.8, Neut # (Auto) 3.7, Lymph # (Auto) 1.3, Wallace # (Auto) 0.6, Eos # (Auto) 0.2, Baso # (Auto) 0.1 03/14/21 06:28: Sodium 136, Potassium 4.0, Chloride 104, Carbon Dioxide 28, Anion Gap 8.0, BUN 16, Creatinine 0.60, Estimated Creat Clear 38, Estimated GFR 98, Est GFR ( Amer) 119, Glucose 129 H, Calcium 9.2 I & O for Last 24 hours: Intake & Output 02/16
--- NOTE | 2021-03-14 12:54 | SW/DCPLANNER ---
Addendum entered by Sabrina Medrano 03/17/21 09:59: [facility] has confirmed that home health services will begin this week for this patient. Addendum entered by Sabrina Medrano 03/14/21 13:55: Patient information/order for home health services has been faxed to [facility]. Addendum entered by Sabrina Medrano 03/14/21 12:59: Patient has also stated that she has a rolling walker/cane at home. Original Note: I spoke with this patient regarding plans once medically stable for discharge. Patient stated that she resides at home with her . Patient also stated that she wears home O2 that is provided by [facility]. Patient stated that per Ortho she will not have surgery at this time. PT/OT evaluated this patient and stated that she is at baseline to return home. I spoke with patient regarding home health services: patient is agreeable to home health once ready for discharge and does not have a preference regarding an agency. Discharge date is unknown at this time. I will continue to follow up with patient.
--- NOTE | 2021-03-14 13:03 | HMH.DCSUM ---
General - General Admission date:: 03/13/21 Discharge date: 03/14/21 HPI HPI: 70 yo female Fell Wednesday Subsequent pain, has been unable to stand or walk. Presented to ER and imaging revealed subtle non-displaced fracture left superior/inferior pubic ramus, seen on CT pelvis Known osteoporosis. Lives with . Hospital Course Hospital Course: Patient was seen by orthopedic service. No operative measures planned. Objective Vital signs: Temp Pulse Resp BP Pulse Ox 98.2 F 70 18 146/59 H 100 03/14/21 08:00 03/14/21 08:00 03/14/21 08:00 03/14/21 08:00 03/14/21 08:00 no acute distress, thin - *Routine HEENT Exam Head: Present: normocephalic Eye: Present: EOMI, PERRL ENT: Present: mucous membranes moist - *Routine Neck Exam Present: supple - *Routine Respiratory Exam Present: CTA bilaterally - *Routine Cardiovascular Exam Present: RRR - *Routine Abdominal Exam Present: soft, normoactive bowel sounds. Absent: tenderness - *Routine Extremities Exam Absent: cyanosis, clubbing, edema, tenderness - *Routine Skin Exam Present: warm. Absent: rash Results Labs on day of discharge: Labs from last 24 hours 03/14/21 03/14/21 03/13/21 06:28 06:28 16:10 WBC 5.9 RBC 3.83 L Hgb 11.6 L Hct 35.7 L MCV 93.1 MCH 30.2 MCHC 32.4 RDW 13.4 Plt Count 321 MPV 7.9 Neut % (Auto) 63.0 Lymph % (Auto) 21.8 Barren % (Auto) 10.3 H Eos % (Auto) 3.1 Baso % (Auto) 1.8 Neut # (Auto) 3.7 Lymph # (Auto) 1.3 Barren # (Auto) 0.6 Eos # (Auto) 0.2 Baso # (Auto) 0.1 Sodium 136 Potassium 4.0 Chloride 104 Carbon Dioxide 28 Anion Gap 8.0 BUN 16 Creatinine 0.60 Estimated Creat Clear 38 Estimated GFR 98 Est GFR ( Amer) 119 Glucose 129 H Calcium 9.2 SARS-CoV-2 (PCR) Not detected Influenza A Untype (PCR) Not detected Influenza Type B (PCR) Not detected DS: Diagnosis - Discharge Diagnosis (1) Pubic ramus fracture Status: Acute (2) Diabetes mellitus type 2 in nonobese Status: Chronic (3) Hypothyroidism Status: Chronic Discharge Plan - Patient Discharge Instructions ACTIVITY: Limited activity DIET: continue same diet - Follow up Plan Follow up with: Ousmane Weaver MD [Staff Physician] - 03/18/21 Disposition: Home, Self-Care Condition at discharge:: Stable Home Medications: Home Medications Medication Instructions Recorded Confirmed Type Alendronate Sodium 70 mg PO WEEKLY 03/17/18 03/13/21 History Metformin HCl [Metformin 1000mg 1,000 mg PO BID 03/17/18 03/13/21 History Tablets] Tramadol HCl [Tramadol 50mg 50 mg PO Q6HP PRN 03/17/18 03/13/21 History Tab] Albuterol Sulfate [Ventolin HFA 2 puff IH QIDP PRN 03/18/18 03/13/21 History Inhaler] Levothyroxine Sodium 50 mcg PO DAILY 10/16/18 03/13/21 History [Levothyroxine 50mcg (0.05mg) Tab] Fluticasone Propion/Salmeterol 1 puff INHALATION BID 03/14/21 03/14/21 History [Fluticasone-Salmeterol 500-50] Hydrocod/Acet 5/325 mg [[place] 1 tab PO Q6HP PRN #20 tab 03/14/21 Rx 5/325mg tablet] Simvastatin [Zocor 20mg] 20 mg PO HS 03/14/21 03/14/21 History Tiotropium [place] [Spiriva 1 cap IH DAILY 03/14/21 03/14/21 History 18mcg/puff inhaler] Prescriptions/Medication Reconciliation: New Hydrocod/Acet 5/325 mg [[place] 5/325mg tablet] 1 tab PO Q6HP PRN #20 tab PRN Reason: Moderate To Severe Pain Continued Tramadol HCl [Tramadol 50mg Tab] 50 mg PO Q6HP PRN PRN Reason: Moderate Pain Metformin HCl [Metformin 1000mg Tablets] 1,000 mg PO BID Albuterol Sulfate [Ventolin HFA Inhaler] 2 puff IH QIDP PRN PRN Reason: Shortness Of Breath Levothyroxine Sodium [Levothyroxine 50mcg (0.05mg) Tab] 50 mcg PO DAILY Fluticasone Propion/Salmeterol [Fluticasone-Salmeterol 500-50] 1 puff INHALATION BID Simvastatin [[place]
== END 2021-03-14 14:15 | disposition home or self-care (01) | DRG 536 ==
LOC: ER 16:56 → 2ND 03-14 06:23
PROVIDERS: Admitting Provider Family Medicine; Emergency Provider Emergency Medicine; PCP Internal Medicine; Visit Provider Family Medicine
DX: S32.512A Fracture of superior rim of left pubis, initial encounter for closed fracture (principal); W18.39XA Other fall on same level, initial encounter; Y92.019 Unspecified place in single-family (private) house as the place of occurrence of the external cause; J44.9 Chronic obstructive pulmonary disease, unspecified; Z99.81 Dependence on supplemental oxygen; E11.9 Type 2 diabetes mellitus without complications; F17.210 Nicotine dependence, cigarettes, uncomplicated; Z79.899 Other long term (current) drug therapy; M81.0 Age-related osteoporosis without current pathological fracture; E03.9 Hypothyroidism, unspecified; Z79.84 Long term (current) use of oral hypoglycemic drugs; Z20.822 Contact with and (suspected) exposure to COVID-19
CPT/HCPCS: 36415; 72192; 73502; 73552; 80048; 85025; 94760; 94761; 97110; 97163; 97530; 99283; C9803; U0003; U0005

== ENCOUNTER → 2021-04-24 09:31 | Outpatient (CLI) | payer MEDICARE, OTHER, SELFPAY ==
--- NOTE | 2021-04-24 09:37 | XR_ITS ---
FINAL REPORT CLINICAL HISTORY: follow up pubic fx COMPARISON: March 13, 2021 FINDINGS: LEFT HIP Two views of the left hip including an AP pelvis demonstrate no dislocation. There is a subacute fracture of the medial left superior and inferior pubic rami with callus formation. There is moderate degenerative change in the lower lumbar spine and mild degenerative change in the hips. The visualized bony structures are well aligned. No soft tissue abnormality is seen. IMPRESSION: Subacute fracture of the medial left superior and inferior pubic rami with callus formation. Degenerative changes as described. Reviewed, Interpreted and Dictated by Evan Carrera III, MD Transcribed by Cherry Arthur Authenticated by Evan Carrera III, MD on 04/24/2021 11:19:05 AM [facility]
== END ==
PROVIDERS: PCP Internal Medicine; Visit Provider Orthopaedic Surgery
DX: S32.592D Other specified fracture of left pubis, subsequent encounter for fracture with routine healing (principal); S32.512D Fracture of superior rim of left pubis, subsequent encounter for fracture with routine healing
CPT/HCPCS: 73502

== ENCOUNTER → 2022-01-14 14:54 | Outpatient (CLI) | payer MEDICARE, OTHER, SELFPAY ==
--- NOTE | 2022-01-14 15:00 | XR_ITS ---
FINAL REPORT TECHNIQUE: Chest PA & Lateral CLINICAL HISTORY: COPD FINDINGS: 2 views of the chest were performed. The heart size is normal. The mediastinum is within normal limits. The lungs are markedly hyperinflated. There are no pleural effusions. There is no pneumothorax. The bony thorax appears intact. IMPRESSION: No acute cardiopulmonary process. Reviewed, Interpreted and Dictated by Dane Martinez MD Transcribed by Cherry Arthur Authenticated and [facility]
[2022-01-14 17:30] LABS: Alanine Aminotransferase 15 U/L (12-78); Albumin Level 4.3 g/dl (3.5-5.0); Alkaline Phosphatase 90 U/L (38-126); Anion Gap 11.8 mEq/L (5-15); Aspartate Amino Transferase 26 U/L (14-36); Bilirubin,Total 0.4 mg/dl (0.2-1.3); Blood Urea Nitrogen 22 mg/dl (7-17); Carbon Dioxide 33 mmol/L (22.0-30.0); Chloride 98 mmol/L (98-107); Chol/HDL Ratio 2.5 (1-3.5); Cholesterol 195 mg/dl (140-200); Estimated Glomerular Filt Rate 70 ml/min (>60); GFR (African American) 85 ML/MIN (>60); Globulin 2.1 g/dL (1.3-3.2); Glucose 243 mg/dl (74-100); HDL Cholesterol 77 mg/dl (40-60); Potassium 4.8 mmoL/L (3.5-5.1); Sodium 138 mmol/L (136-145); Total Protein,Serum 6.4 g/dl (6.3-8.2); Triglycerides 121 mg/dl (30-150); VLDL Cholesterol 24 mg/dL (0-40)
[2022-01-14 17:37] LABS: Basophils # 0.1 K/mm3 (0-0.2); Basophils % 1.3 % (0.1-2.0); Eosinophils # 0.5 K/mm3 (0.0-0.4); Eosinophils % 7.6 % (0.1-12.0); Hematocrit 40.9 % (37.0-47.0); Hemoglobin 12.5 g/dL (12.2-16.2); Lymphocytes # 1.3 K/mm3 (0.7-4.5); Lymphocytes % 18.1 % (10-50); Mean Corpuscular HGB Conc 30.7 g/dL (31.8-35.4); Mean Corpuscular Hemoglobin 29.2 pg (27.0-31.2); Mean Corpuscular Volume 95.1 fl (81-99); Mean Platelet Volume 8.3 fl (7.4-10.4); Monocytes # 0.3 K/mm3 (0.1-1.0); Monocytes % 4.6 % (1.7-9.3); Neutrophils # 4.9 K/mm3 (1.8-7.8); Neutrophils % 68.4 % (37.0-80.0); Platelet Count 515 K/mm3 (142-424); Red Cell Distribution Width 13.3 % (11.5-17.5); White Blood Count 7.1 K/mm3 (4.8-10.8)
[2022-01-14 17:41] LABS: Direct LDL Cholesterol 86.71 mg/dL (100-129)
[2022-01-14 18:03] LABS: Thyroid Stimulating Hormone 2.69 uIU/mL (0.465-4.68)
[2022-01-14 18:04] LABS: Erythrocyte Sedimentation Rate 18 mm/hr (0-30)
[2022-01-14 19:33] LABS: Hemoglobin A1C 6.1 % (4.0-6.0)
== END ==
PROVIDERS: PCP Internal Medicine; Visit Provider Internal Medicine
DX: J44.9 Chronic obstructive pulmonary disease, unspecified (principal); I27.81 Cor pulmonale (chronic); M54.6 Pain in thoracic spine; E11.59 Type 2 diabetes mellitus with other circulatory complications; E11.42 Type 2 diabetes mellitus with diabetic polyneuropathy; E03.9 Hypothyroidism, unspecified; E78.5 Hyperlipidemia, unspecified; I73.9 Peripheral vascular disease, unspecified; F17.209 Nicotine dependence, unspecified, with unspecified nicotine-induced disorders; Z79.84 Long term (current) use of oral hypoglycemic drugs
CPT/HCPCS: 71046; 80053; 80061; 83036; 84443; 85025; 85651

== ENCOUNTER → 2022-07-17 17:00 | Outpatient (CLI) | payer MEDICARE, OTHER, SELFPAY ==
[2022-07-17 19:08] LABS: Alanine Aminotransferase 20 U/L (12-78); Albumin Level 4.4 g/dl (3.5-5.0); Alkaline Phosphatase 77 U/L (38-126); Anion Gap 15.2 mEq/L (5-15); Aspartate Amino Transferase 29 U/L (14-36); Bilirubin,Total 0.5 mg/dl (0.2-1.3); Blood Urea Nitrogen 17 mg/dl (7-17); Calcium 9.3 mg/dl (8.4-10.2); Carbon Dioxide 31 mmol/L (22.0-30.0); Chloride 96 mmol/L (98-107); Chol/HDL Ratio 2.9 (1-3.5); Cholesterol 312 mg/dl (140-200); Estimated Glomerular Filt Rate 98 ml/min (>60); GFR (African American) 119 ML/MIN (>60); Globulin 2.2 g/dL (1.3-3.2); Glucose 126 mg/dl (74-100); HDL Cholesterol 107 mg/dl (40-60); Potassium 5.2 mmoL/L (3.5-5.1); Sodium 137 mmol/L (136-145); Total Protein,Serum 6.6 g/dl (6.3-8.2); Triglycerides 277 mg/dl (30-150); VLDL Cholesterol 55 mg/dL (0-40)
[2022-07-17 19:19] LABS: Direct LDL Cholesterol 146.56 mg/dL (100-129)
[2022-07-17 19:40] LABS: Hemoglobin A1C 6.5 % (4.0-6.0)
== END ==
PROVIDERS: PCP Internal Medicine; Visit Provider Internal Medicine
DX: E11.42 Type 2 diabetes mellitus with diabetic polyneuropathy (principal); E03.9 Hypothyroidism, unspecified; E78.5 Hyperlipidemia, unspecified; J44.9 Chronic obstructive pulmonary disease, unspecified; I73.9 Peripheral vascular disease, unspecified; Z79.84 Long term (current) use of oral hypoglycemic drugs
CPT/HCPCS: 80053; 80061; 83036

== ENCOUNTER → 2022-07-20 13:17 | Outpatient (CLI) | payer MEDICARE, OTHER, SELFPAY ==
[2022-07-20 15:13] LABS: Microalbumin/Creatinine Ratio 22.7
[2022-07-20 15:28] LABS: Creatinine,Urine Random 43 mg/dL (Not Estab.)
== END ==
PROVIDERS: PCP Internal Medicine; Visit Provider Internal Medicine
DX: E11.42 Type 2 diabetes mellitus with diabetic polyneuropathy (principal); E03.9 Hypothyroidism, unspecified; E78.5 Hyperlipidemia, unspecified; I73.9 Peripheral vascular disease, unspecified; J44.9 Chronic obstructive pulmonary disease, unspecified; F17.209 Nicotine dependence, unspecified, with unspecified nicotine-induced disorders; Z79.84 Long term (current) use of oral hypoglycemic drugs
CPT/HCPCS: 82043; 82570

== ENCOUNTER → 2023-01-26 12:42 | Outpatient (CLI) | payer MEDICARE, OTHER, SELFPAY ==
[2023-01-26 13:38] LABS: Basophils # 0.1 K/mm3 (0-0.2); Basophils % 0.8 % (0.1-2.0); Eosinophils # 0.5 K/mm3 (0.0-0.4); Eosinophils % 5.9 % (0.1-12.0); Hematocrit 39.3 % (37.0-47.0); Hemoglobin 13.1 g/dL (12.2-16.2); Lymphocytes # 1.6 K/mm3 (0.7-4.5); Lymphocytes % 17.3 % (10-50); Mean Corpuscular HGB Conc 33.3 g/dL (31.8-35.4); Mean Corpuscular Volume 89.8 fl (81-99); Mean Platelet Volume 8.8 fl (7.4-10.4); Monocytes # 0.4 K/mm3 (0.1-1.0); Monocytes % 4.4 % (1.7-9.3); Neutrophils # 6.6 K/mm3 (1.8-7.8); Neutrophils % 71.6 % (37.0-80.0); Platelet Count 479 K/mm3 (142-424); Red Blood Count 4.38 M/mm3 (4.20-5.40); Red Cell Distribution Width 13.1 % (11.5-17.5); White Blood Count 9.2 K/mm3 (4.8-10.8)
[2023-01-26 14:27] LABS: Hemoglobin A1C 6.4 % (4.0-6.0)
[2023-01-26 14:43] LABS: Alanine Aminotransferase 19 U/L (12-78); Albumin Level 4.5 g/dl (3.5-5.0); Albumin/Globulin Ratio 1.8 (1.1-1.8); Alkaline Phosphatase 78 U/L (38-126); Anion Gap 13.5 mEq/L (5-15); Aspartate Amino Transferase 32 U/L (14-36); Bilirubin,Total 0.4 mg/dl (0.2-1.3); Blood Urea Nitrogen 19 mg/dl (7-17); Calcium 9.2 mg/dl (8.4-10.2); Carbon Dioxide 32 mmol/L (22.0-30.0); Chloride 95 mmol/L (98-107); Cholesterol 304 mg/dl (140-200); Estimated Glomerular Filt Rate 70 ml/min (>60); GFR (African American) 85 ML/MIN (>60); Globulin 2.5 g/dL (1.3-3.2); Glucose 141 mg/dl (74-100); Potassium 5.5 mmoL/L (3.5-5.1); Sodium 135 mmol/L (136-145); Triglycerides 118 mg/dl (30-150); VLDL Cholesterol 24 mg/dL (0-40)
[2023-01-26 14:52] LABS: Chol/HDL Ratio 3.2 (1-3.5); HDL Cholesterol 96 mg/dl (40-60)
[2023-01-26 14:54] LABS: Direct LDL Cholesterol 161.43 mg/dL (100-129)
== END ==
PROVIDERS: PCP Internal Medicine; Visit Provider Internal Medicine
DX: E11.59 Type 2 diabetes mellitus with other circulatory complications (principal); E11.42 Type 2 diabetes mellitus with diabetic polyneuropathy; E78.5 Hyperlipidemia, unspecified; I73.9 Peripheral vascular disease, unspecified; J44.9 Chronic obstructive pulmonary disease, unspecified; E03.9 Hypothyroidism, unspecified; Z79.84 Long term (current) use of oral hypoglycemic drugs; Z72.0 Tobacco use
CPT/HCPCS: 80053; 80061; 83036; 85025

== ENCOUNTER 2023-10-06 14:08 | Outpatient (CLI) | payer MEDICARE, OTHER, SELFPAY ==
[2023-10-06 17:14] LABS: Alanine Aminotransferase 18 U/L (12-78); Albumin Level 4.7 g/dl (3.5-5.0); Albumin/Globulin Ratio 1.6 (1.1-1.8); Alkaline Phosphatase 72 U/L (38-126); Anion Gap 14.9 mEq/L (5-15); Aspartate Amino Transferase 29 U/L (14-36); Bilirubin,Total 0.7 mg/dl (0.2-1.3); Blood Urea Nitrogen 17 mg/dl (7-17); Carbon Dioxide 27 mmol/L (22.0-30.0); Chloride 100 mmol/L (98-107); Estimated Glomerular Filt Rate 82 ml/min (>60); GFR (African American) 99 ML/MIN (>60); Glucose 94 mg/dl (74-100); Potassium 4.9 mmoL/L (3.5-5.1); Sodium 137 mmol/L (136-145); Total Protein,Serum 7.7 g/dl (6.3-8.2); Triglycerides 169 mg/dl (30-150); VLDL Cholesterol 34 mg/dL (0-40)
[2023-10-06 17:17] LABS: Basophils # 0.1 K/mm3 (0-0.2); Basophils % 0.8 % (0.1-2.0); Eosinophils # 0.3 K/mm3 (0.0-0.4); Eosinophils % 1.9 % (0.1-12.0); Hematocrit 45.6 % (37.0-47.0); Hemoglobin 14.1 g/dL (12.2-16.2); Lymphocytes # 1.4 K/mm3 (0.7-4.5); Lymphocytes % 9.3 % (10-50); Mean Corpuscular HGB Conc 30.9 g/dL (31.8-35.4); Mean Corpuscular Hemoglobin 29.6 pg (27.0-31.2); Mean Corpuscular Volume 95.7 fl (81-99); Mean Platelet Volume 8.2 fl (7.4-10.4); Monocytes # 0.6 K/mm3 (0.1-1.0); Monocytes % 4.3 % (1.7-9.3); Neutrophils # 12.4 K/mm3 (1.8-7.8); Neutrophils % 83.6 % (37.0-80.0); Platelet Count 496 K/mm3 (142-424); Red Blood Count 4.76 M/mm3 (4.20-5.40); Red Cell Distribution Width 13.6 % (11.5-17.5); White Blood Count 14.8 K/mm3 (4.8-10.8)
[2023-10-06 17:30] LABS: Creatinine,Urine Random 154 mg/dL (Not Estab.); Microalbumin/Creatinine Ratio 101.5
[2023-10-06 17:42] LABS: Chol/HDL Ratio 3.1 (1-3.5); Cholesterol 352 mg/dl (140-200); HDL Cholesterol 112 mg/dl (40-60)
[2023-10-06 17:43] LABS: Direct LDL Cholesterol 173 mg/dL (100-129)
[2023-10-06 17:52] LABS: Thyroid Stimulating Hormone 2.34 uIU/mL (0.465-4.68)
[2023-10-06 18:45] LABS: Hemoglobin A1C 6.4 % (4.0-6.0)
== END 2023-10-06 23:59 | disposition home or self-care (01) ==
LOC: LAB.DROPOF 10-07 14:09
PROVIDERS: PCP Internal Medicine; Visit Provider Internal Medicine
DX: E11.42 Type 2 diabetes mellitus with diabetic polyneuropathy (principal); E03.9 Hypothyroidism, unspecified; E78.5 Hyperlipidemia, unspecified
CPT/HCPCS: 80050; 80053; 80061; 82043; 82570; 83036; 84443; 85025

== ENCOUNTER 2024-02-19 11:40 | Inpatient (IN) | payer MEDICARE, OTHER, SELFPAY ==
[2024-02-19] VITALS (10 sets, daily range): BP systolic 132–215; BP diastolic 65–112; PULSE 74–105; RESP 18–33; TEMP 36.6–36.8; O2SAT 78–100; BMI 15.2
--- NOTE | 2024-02-19 11:48 | ECG_ITS ---
APPROVED REPORT Exam: Resting ECG HR:99 bpm ECG Measurements Heart Rate 99 AXES AZ 148 P 87 QRSd 74 QRS 78 QT 315 T 33 QTc 371 Conclusion SINUS RHYTHM WITH FREQUENT ECTOPIC PREMATURE COMPLEXES POSSIBLE RIGHT ATRIAL ENLARGEMENT [0.25mV P-WAVE] POSSIBLE LEFT ATRIAL ENLARGEMENT [-0.1mV P-WAVE IN V1/V2] MARKED ST DEPRESSION, CONSIDER SUBENDOCARDIAL INJURY [0.2+ mV ST DEPRESSION] ACUTE MN UNCONFIRMED REPORT Electronically signed by : Chidi Gonzalez, 02/19/2024 16:13:19
--- NOTE | 2024-02-19 11:55 | PC.NURSE ---
Brayan spoke with kalyn in respiratory to start bipap
--- NOTE | 2024-02-19 11:59 | XR_ITS ---
PROCEDURE INFORMATION: Exam: XR Chest Exam date and time: 02/19/2024 12:18 PM Age: 73 years old Clinical indication: Dyspnea TECHNIQUE: Imaging protocol: Radiologic exam of the chest. Views: 1 view. COMPARISON: CR XR CHEST 2V 01/14/2022 3:03 PM FINDINGS: Lungs: Emphysema. No focal consolidation. Pleural spaces: Unremarkable. No pleural effusion. No pneumothorax. Heart/Mediastinum: Unremarkable. No cardiomegaly. Bones/joints: Unremarkable. IMPRESSION: No acute findings.
[2024-02-19] MEDS: IPRATROPIUM/ALBUTEROL 3 ML NEB 9 ML IH (12:06)
[2024-02-19 12:08] LABS: Basophils # 0.1 K/mm3 (0-0.2); Basophils % 0.6 % (0.1-2.0); Eosinophils % 0.4 % (0.1-12.0); Hematocrit 42.8 % (37.0-47.0); Hemoglobin 13.6 g/dL (12.2-16.2); Lymphocytes # 1.1 K/mm3 (0.7-4.5); Lymphocytes % 11.7 % (10-50); Mean Corpuscular HGB Conc 31.8 g/dL (31.8-35.4); Mean Corpuscular Hemoglobin 28.8 pg (27.0-31.2); Mean Corpuscular Volume 90.7 fl (81-99); Mean Platelet Volume 9.7 fl (7.4-10.4); Monocytes # 0.8 K/mm3 (0.1-1.0); Monocytes % 8.6 % (1.7-9.3); Neutrophils # 7.5 K/mm3 (1.8-7.8); Neutrophils % 78.4 % (37.0-80.0); Platelet Count 367 K/mm3 (142-424); Red Blood Count 4.72 M/mm3 (4.20-5.40); Red Cell Distribution Width 12.5 % (11.5-17.5); White Blood Count 9.6 K/mm3 (4.8-10.8)
--- NOTE | 2024-02-19 12:10 | ED_ITS ---
Discharge Plan Disposition Chief Complaint: Shortness of Breath/Dyspnea Prescriptions Prescriptions: No Action ipratropium-albuterol 0.5 mg-3 mg(2.5 mg base)/3 mL solution for nebulization 3 ml inhalation Q6H PRN (Reason: shortness of breath) Qty: 180 3RF simvastatin 20 mg tablet 20 mg PO HS Qty: 90 1RF metformin 1,000 mg tablet 1,000 mg PO BID Qty: 180 1RF tramadol 50 mg tablet 50 mg PO Q6H PRN (Reason: pain) Qty: 100 0RF albuterol sulfate 90 mcg/actuation HFA aerosol inhaler See Rx Instructions .ROUTE .COMPLEX Qty: 18 5RF Dose Instruction: INHALE 2 PUFFS BY MOUTH EVERY 6 HOURS NEEDED FOR SHORTNESS OF BREATH AND FOR WHEEZING Rx Instructions: INHALE 2 PUFFS BY MOUTH EVERY 6 HOURS NEEDED FOR SHORTNESS OF BREATH AND FOR WHEEZING fluticasone propion-salmeterol 1 EACH blister with device 1 puff INHALATION BID Patient Comments: INHALE 1 DOSE BY MOUTH TWICE DAILY, RINSE MOUTH WITH WATER AFTER USE TO REDUCE AFTERTASTE AND INCIDENCE OF CANDIDIASIS. DO NOT SWALLOW levothyroxine 50 MCG tablet 50 mcg PO DAILY Referrals Follow up/Referrals: Abraham Murrieta MD [Primary Care Provider] - See instructions Clinical Impressions Clinical Impression: Acute exacerbation of chronic obstructive airways disease, Acute respiratory failure with hypoxia and hypercarbia, Acute respiratory distress Print Language Print Language: Bhutanese Discharge ED Provider: Shane Gonzalez [facility] General Chief Complaint: Shortness of Breath/Dyspnea Stated Complaint: weakness, copd Time Seen by Provider: 02/19/24 11:48 Mode of Arrival: Wheelchair Source of Information: Patient and Relative Limitations: No Limitations Description of Symptoms (Recalled from ER Triage Doc. by RN): pts temo reports she has gotten increasingly weaker over the last five days. pt is continent at baseline and able to walk. pt has not been incontinent and staying in bed. pt presents with 2+ edema bilaterally in her feet and they are cold to the touch. pt reports feeling more SOA than at baseline with her COPD. pt was 78% on her normal 2.5L NC when she arrived. pt denies chest pain or any other pain. History of Present Illness HPI narrative: 73-year-old female with a history of COPD presents today with several days of increasing shortness of breath and wheezing. She has a known history of COPD wears 2 L to 2.5 L nasal cannula at baseline was in the mid 70s on her normal oxygen saturation upon arrival. She denies any chest pain. Her granddaughter who is with her who is the most medically literate states that she has a history of diabetes and that she only has like this when she has the flu or pneumonia. She has never been on BiPAP or intubated in the past. Related Data Home Medications ?Medication ?Instructions ?Recorded ?Confirmed levothyroxine 50 mcg tablet 50 mcg PO DAILY Hypothyroidism 10/16/18 01/04/24 fluticasone 500 mcg-salmeterol 50 1 puff inhalation BID COPD 03/14/21 01/04/24 mcg/dose blistr powdr for inhalation Previous Rx's ?Medication ?Instructions ?Recorded ipratropium 0.5 mg-albuterol 3 mg 3 ml inhalation Q6H PRN shortness 12/15/23 (2.5 mg base)/3 mL nebulization of breath #180 mL soln simvastatin 20 mg tablet 20 mg PO HS High cholesterol #90 12/16/23 tabs metformin 1,000 mg tablet 1,000 mg PO BID Diabetes #180 tabs 01/18/24 tramadol 50 mg tablet 50 mg PO Q6H PRN pain #100 tabs 01/21/24 albuterol sulfate 90 mcg/actuation See Rx Instructions .Route 01/26/24 aerosol inhaler .COMPLEX #18 grams Allergies Allergy/AdvReac Type Severity Reaction Status Date / Time Penicillins Allergy Severe TONGUE Verified 02/19/24 12:05 SWELLS doxycycline Allergy Mild I-RASH Verified 02/19/24 12:05 PFSH PFS Disclaimer: The information contained in this section may have been updated after the patient was seen, as this information can be updated by other users. Social History Smoking Status: Never smoker second hand exposure: No alcohol intake: never current occupational status: retired Travel in the last 8 weeks: None household members: spouse housing: house current occupational exposures/hazards: No caffeine: Yes Have you lived/traveled outside US in past 30 days?: No Contact w/someone who lives/traveled outside US past 30 days?: No Exposure to someone with infectious disease in past 14 days?: No Do you have a fever (greater than 100.4 F or 38 C)?: No Have you tested positive for COVID-19: No Exposed to someone with COVID-19 in past 14 days?: No Do you have a sore throat?: No Do you have a cough?: Yes Do you have any weakness?: Yes Do you have any diarrhea?: No Are you experiencing any unusual bleeding?: No Do you have any muscle aches/pain?: No Do you have any abdominal pain?: No Are you experiencing loss of taste or smell?: No Other Medical History Have you received the Flu Vaccine for this season: No Have you received the Pneumonia Vaccine: Yes ROS Obtained: Yes All systems reviewed & no additional complaints except as documented Physical Exam General General appearance: in distress (In respiratory distress oxygen saturation 70% on room on 2-1/2 L.) Respiratory Respiratory exam: Present other (Tachypneic shallow respirations unable to speak in more than fragmented sentences prolonged expiratory phase accessory muscle use with diffuse wheezing throughout) Cardiovascular Cardiovascular exam: Present regular rate and normal rhythm Neurological Exam Neurological exam: Present alert and oriented X3 HEART Score HEART Score HEART Score assessment performed?: Yes History (anamnesis): Slightly suspicious ECG: Non-specific disturbance Age: >65 years Risk factors: 3 or more risk factors Troponin: </= normal limit HEART Score: 5 Critical Care Critical Care Time Critical Care Time: Yes Attestation: On 02/19/24, the high probability of a clinically significant, sudden or life threatening deterioration of the following system(s) required my full and direct attention, intervention and personal management. The time I documented below is in addition to time spent performing reported procedures but includes the following listed in this critical care notation. Total Time Total Critical Care Time: 35 Medical Decision Making Sachin Inquiry Pt receiving controlled substance: No Vital Signs Vital Signs: 02/19/24 11:51 02/19/24 11:56 02/19/24 12:00 Pulse Rate 74 105 H Pulse Rate [Left] 100 H Respiratory Rate 33 H 33 H 32 H Blood Pressure 201/101 H 215/112 H Blood Pressure Source [Right Arm] Automatic Cuff Blood Pressure Position [Right Arm] Sitting 02 Sat by Pulse Oximetry 100 78 L 100 Oxygen Delivery Method Nasal Cannula Nasal Cannula Nasal Cannula Oxygen Flow Rate (LPM) 3 3 Lab Data Lab results reviewed: Yes I reviewed the patient's lab results. Labs: Lab Results 02/19/24 11:55: WBC 9.6, RBC 4.72, Hgb 13.6, Hct 42.8, MCV 90.7, MCH 28.8, MCHC 31.8, RDW 12.5, Plt Count 367, MPV 9.7, Neut % (Auto) 78.4, Lymph % (Auto) 11.7, Spencer % (Auto) 8.6, Eos % (Auto) 0.4, Baso % (Auto) 0.6, Neut # (Auto) 7.5, Lymph # (Auto) 1.1, Spencer # (Auto) 0.8, Eos # (Auto) 0.0, Baso # (Auto) 0.1, Sodium 139, Potassium 4.0, Chloride 96 L, Carbon Dioxide 34 H, Anion Gap 13.0, BUN 21 H , Creatinine 0.80, Estimated Creat Clear 30, Estimated GFR 70, Est GFR ( Amer) 85, Glucose 265 H, Calcium 9.1, Total Bilirubin 0.7, AST 36, ALT 25, Alkaline Phosphatase 72, NT-Pro-B Natriuret Pep 409, Total Protein 7.0, Albumin 4.2, Globulin 2.8, Albumin/Globulin Ratio 1.5 02/19/24 12:04: VBG pH 7.34, VBG pCO2 53.4 H, VBG pO2 38.5, VBG HCO3 28.2, VBG Total CO2 29.9 H, VBG O2 Saturation 70.5 H, VBG Base Excess 2.5 H, VBG Lactic Acid 2.8 H 02/19/24 11:55 02/19/24 11:55 Response Orders (Tests/Meds): ED MEDICATIONS Discontinued Medications Generic Name Dose Route Start Last Admin Trade Name Freq PRN Reason Stop Dose Admin Albuterol/Ipratropium 9 ml 02/19/24 11:57 02/19/24 12:06 Ipratropium/Albuterol 3 Ml Neb IH 02/19/24 11:58 9 ml ONCE ONE Administration Magnesium Sulfate 2 gm in 50 mls @ 50 mls/hr 02/19/24 11:57 02/19/24 12:20 Magnesium Sulfate 2gm/50ml Premix IV 02/19/24 12:56 50 mls/hr ONCE ONE Administration Ceftriaxone Sodium 1 gm/ 50 mls @ 100 mls/hr 02/19/24 12:01 02/19/24 12:27 Sodium Chloride IV 02/19/24 12:30 100 mls/hr ONCE ONE Administration Azithromycin 500 mg/ Sodium 250 mls @ 250 mls/hr 02/19/24 12:02 Chloride IV 02/19/24 12:03 ONCE ONE Methylprednisolone Sodium Succinate 125 mg 02/19/24 11:57 02/19/24 12:20 Methylprednisolone Sod Succ 125mg Vial IV 02/19/24 11:58 125 mg ONCE ONE Administration ORDERS Category Date Time Status CXR --portable [XR chest portable] Stat Exams 02/19/24 11:59 Taken BNP [NT Pro Brain Natriuretic Pep.] Stat Lab 02/19/24 11:55 Results CBC w/Auto Diff [Complete Blood Count Auto Diff] Stat Lab 02/19/24 11:55 Completed CMP [Comprehensive Metabolic Panel] Stat Lab 02/19/24 11:55 Results HIV Combo Stat Lab 02/19/24 11:55 Received Hep C Ab with Reflex to RNA Stat Lab 02/19/24 11:55 Received Lactate Venous Stat Lab 02/19/24 12:04 Ordered Rapid PCR Covid and Flu A/B Stat Lab 02/19/24 12:09 Received Trop I [Troponin I] Stat Lab 02/19/24 11:55 Results Troponin I Q3H Lab 02/19/24 15:00 Ordered Troponin I Q3H Lab 02/19/24 18:00 Ordered Blood Culture Stat Micro 02/19/24 12:11 Received Venous Blood Gas Stat RT 02/19/24 12:04 Completed ECG Data Tracing #1: Attestation: I reviewed this ECG and interpreted as documented below: ECG Narrative: Ventricular rate of 99 tremulous baselines are difficult to interpret but no acute ischemic changes noted there is normal axis MDM Narrative Medical Decision Narrative: 73-year-old presents with respiratory distress very tight on my evaluation using accessory muscle use prolonged expiratory phase working very hard hypoventilating clinically also with hypoxic respiratory failure L we have initiated the patient on BiPAP continuous nebs steroids magnesium antibiotics have been initiated and she will need to be admitted. Will reassess after the initial workup is complete. Reassessment 1258 patient is improving on BiPAP and all the medication she has been given chest x-ray was performed which I personally interpreted shows no evidence of focal consolidation. Patient was initiated on BiPAP due to her work of breathing but gases actually reassuring no severe or significant respiratory acidosis at the moment she will likely be able to be discontinued on BiPAP shortly. Nonetheless given the severity she will need to be admitted for further evaluation and management ongoing breathing treatments and reassessment. COVID and flu are still pending hospital medicine has been contacted she will be admitted for further evaluation.
[2024-02-19 12:15] LABS: VBG Base Excess 2.5 mmol/L (-2.4-2.3); VBG HCO3 28.2 mmol/L (23-30); VBG Oxygen Saturation 70.5 % (50-70); VBG PH 7.34 mmol/L (7.31-7.41); VBG PO2 38.5 mmol/L (28-40); VBG Total CO2 29.9 mmol/L (23-27)
[2024-02-19 12:17] LABS: Lactate Venous 2.8 mmol/L (0.4-2.0); VBG PCO2 53.4 mmol/L (35-51)
[2024-02-19] MEDS: MAGNESIUM SULFATE IN WATER 2 GM/50 ML PIGGYBACK IV (12:20)
[2024-02-19] MEDS: METHYLPREDNISOLONE SOD SUCC 125MG VIAL 125 MG IV (12:20)
[2024-02-19 12:22] LABS: Coronavirus 19, PCR Not Detected (NotDetected); Influenza B, PCR Not Detected (NotDetected)
[2024-02-19 12:22] LABS: Albumin Level 4.2 g/dl (3.5-5.0); Chloride 96 mmol/L (98-107); Sodium 139 mmol/L (136-145)
[2024-02-19 12:25] LABS: Alanine Aminotransferase 25 U/L (12-78); Albumin/Globulin Ratio 1.5 (1.1-1.8); Alkaline Phosphatase 72 U/L (38-126); Aspartate Amino Transferase 36 U/L (14-36); Bilirubin,Total 0.7 mg/dl (0.2-1.3); Blood Urea Nitrogen 21 mg/dl (7-17); Calcium 9.1 mg/dl (8.4-10.2); Carbon Dioxide 34 mmol/L (22.0-30.0); Creatinine Clearance Estimated 30 mL/min (50-200); Estimated Glomerular Filt Rate 70 ml/min (>60); GFR (African American) 85 ML/MIN (>60); Globulin 2.8 g/dL (1.3-3.2); Glucose 265 mg/dl (74-100)
[2024-02-19] MEDS: CEFTRIAXONE SODIUM 1 GM in 0.9 % SODIUM CHLORIDE 50 ML IV (12:27)
[2024-02-19 12:34] LABS: NT Pro Brain Natriuretic Pep. 409 pg/mL (0-450)
[2024-02-19 12:58] LABS: Troponin I < 0.01 ng/ml (0.00-0.034)
[2024-02-19 13:13] LABS: Influenza A, PCR Detected (NotDetected)
[2024-02-19] MEDS: AZITHROMYCIN 500 MG in 0.9 % SODIUM CHLORIDE 250 ML 250 MG IV (13:26)
--- NOTE | 2024-02-19 14:40 | HMH.PHAINT1 ---
Pharmacy Intervention Comments: MEDICATION RECONCILIATION COMPLETE USING LIST FROM MOST RECENT MD OFFICE VISIT, EXTERNAL PHARMACY FILL HISTORY, AND PARAMJIT REPORT.
[2024-02-19 16:09] LABS: Troponin I 0.03 ng/ml (0.00-0.034)
[2024-02-19 16:15] LABS: Reflex Lactic Add Lactic Reflex
[2024-02-19 17:00] LABS: Lactic Acid Follow Up (RFLX 1) 2.2 mmol/L (0.7-2.1)
[2024-02-19 18:19] LABS: Troponin I 0.04 ng/ml (0.00-0.034)
[2024-02-19 18:22] LABS: Reflex Lactic (2 hrs) Add Lactic Reflex
[2024-02-19 18:23] LABS: HIV Combo NEGATIVE (Negative)
[2024-02-19] MEDS: IPRATROPIUM BROMIDE 0.5 MG/2.5ML SOLUTION IH (18:24)
[2024-02-19] MEDS: LEVALBUTEROL 1.25MG/3ML NEB 1.25 MG IH (18:24)
[2024-02-19] MEDS: BUDESONIDE 0.5MG/2ML NEB 0.5 MG IH (18:24)
--- NOTE | 2024-02-19 19:17 | P.HP_ITS ---
History of Present Illness *Admission Date: 02/19/24 *Reason for visit:: COPD exacerbation *History of present illness: Natalya Azul is a 73-year-old female with a medical history significant for COPD, levothyroxine, diabetes who presents for worsening shortness of breath over the past few days. Patient states she had flulike symptoms over the past week and developed shortness of breath that has been worsening. She also endorses intermittently productive cough, but no chest pain. Workup in the ED significant for influenza A. CXR did not reveal acute findings. Case discussed with ED provider and decision was made to admit patient for acute on chronic hypoxic respiratory failure secondary to COPD exacerbation. #Acute on chronic hypoxic respiratory failure #Chronic hypercapnic respiratory failure #Acute COPD exacerbation #Influenza A positive ? Levalbuterol, ipratropium, Pulmicort scheduled. ? Prednisone 40 mg daily day 2/5 ? IV doxycycline twice daily day 2/5 ? Tamsulosin 30 mg twice daily day 2/5. Renally dosed. ? Continues to have moderate wheezing. VBG reassuring. ? Back to baseline of 2 L nasal cannula. However, physically deconditioned. See below. #Physical deconditioning ? Has not able been able to ambulate much over the past weeks. ? PT/OT consulted, pending recommendations. #Hypothyroidism ? Resumed home levothyroxine 50 mcg. #Type 2 diabetes ? Resumed home metformin 1000 mg twice daily. Full code DVT prophylaxis: [facility]ovenox [facility] Disclaimer: The information contained in this section may have been updated after the patient was seen, as this information can be updated by other users. Social History Smoking Status: Never smoker second hand exposure: No alcohol intake: never current occupational status: retired Travel in the last 8 weeks: None household members: spouse housing: house current occupational exposures/hazards: No caffeine: Yes Have you lived/traveled outside US in past 30 days?: No Contact w/someone who lives/traveled outside US past 30 days?: No Exposure to someone with infectious disease in past 14 days?: No Do you have a fever (greater than 100.4 F or 38 C)?: No Have you tested positive for COVID-19: No Exposed to someone with COVID-19 in past 14 days?: No Do you have a sore throat?: No Do you have a cough?: Yes Do you have any weakness?: Yes Do you have any diarrhea?: No Are you experiencing any unusual bleeding?: No Do you have any muscle aches/pain?: No Do you have any abdominal pain?: No Are you experiencing loss of taste or smell?: No Other Medical History Have you received the Flu Vaccine for this season: Yes Have you received the Pneumonia Vaccine: Yes Meds Home Medications and Allergies Home Medications ?Medication ?Instructions ?Recorded ?Confirmed ?Type levothyroxine 50 mcg tablet 50 mcg PO DAILYDM 10/16/18 02/19/24 History fluticasone 500 mcg-salmeterol 50 1 puff inhalation BIDRT COPD 03/14/21 02/19/24 History mcg/dose blistr powdr for inhalation albuterol sulfate 90 mcg/actuation 2 puff inhalation Q6HP PRN 02/19/24 02/19/24 History aerosol inhaler Shortness Of Breath ipratropium 0.5 mg-albuterol 3 mg 3 ml inhalation Q6HP PRN shortness 02/19/24 02/19/24 History (2.5 mg base)/3 mL nebulization of breath soln metformin 1,000 mg tablet 1,000 mg PO BIDWMEAL Diabetes 02/19/24 02/19/24 History simvastatin 20 mg tablet 20 mg PO HS 02/19/24 02/19/24 History tramadol 50 mg tablet 50 mg PO Q6HP PRN Severe Pain 02/19/24 02/19/24 History (Scale Score 7-10) New Prescriptions to Start Prescriptions: Allergies Allergy/AdvReac Type Severity Reaction Status Date / Time Penicillins Allergy Severe TONGUE Verified 02/19/24 12:05 SWELLS doxycycline Allergy Mild I-RASH Verified 02/19/24 12:05 Exam Data for Last 24 hours Vital signs and Labs for Last 24 Hours: Temp Pulse Resp BP Pulse Ox O2 Del Method O2 Flow Rate 98.2 F 98 H 18 134/76 95 Nasal Cannula 4 02/19/24 16:00 02/19/24 16:00 02/19/24 16:00 02/19/24 16:00 02/19/24 16:00 02/19/24 17:00 02/19/24 17:00 FiO2 35 02/19/24 12:30 Laboratory Results - last 24 hr 02/19/24 11:55: WBC 9.6, RBC 4.72, Hgb 13.6, Hct 42.8, MCV 90.7, MCH 28.8, MCHC 31.8, RDW 12.5, Plt Count 367, MPV 9.7, Neut % (Auto) 78.4, Lymph % (Auto) 11.7, Rankin % (Auto) 8.6, Eos % (Auto) 0.4, Baso % (Auto) 0.6, Neut # (Auto) 7.5, Lymph # (Auto) 1.1, Rankin # (Auto) 0.8, Eos # (Auto) 0.0, Baso # (Auto) 0.1, Sodium 139, Potassium 4.0, Chloride 96 L, Carbon Dioxide 34 H, Anion Gap 13.0, BUN 21 H , Creatinine 0.80, Estimated Creat Clear 30, Estimated GFR 70, Est GFR ( Amer) 85, Glucose 265 H, Calcium 9.1, Total Bilirubin 0.7, AST 36, ALT 25, Alkaline Phosphatase 72, Troponin I < 0.01, NT-Pro-B Natriuret Pep 409, Total Protein 7.0, Albumin 4.2, Globulin 2.8, Albumin/Globulin Ratio 1.5, HIV Ag/Ab Combo Qual Negative 02/19/24 12:04: VBG pH 7.34, VBG pCO2 53.4 H, VBG pO2 38.5, VBG HCO3 28.2, VBG Total CO2 29.9 H, VBG O2 Saturation 70.5 H, VBG Base Excess 2.5 H, VBG Lactic Acid 2.8 H 02/19/24 12:09: SARS-CoV-2 (PCR) Not detected, Influenza A Untype (PCR) Detected A, Influenza Type B (PCR) Not detected 02/19/24 15:25: Troponin I 0.03 02/19/24 15:35: Lactate 2.2 H 02/19/24 17:40: Troponin I 0.04 H I & O for Last 24 hours: Intake & Output 02/16/24 02/17/24 02/18/24 02/19/24 23:59 23:59 23:59 23:59 Intake Total 200 / 200 Output Total 200 / 200 Balance 0 / 0 Weight 39.009 kg Constitutional Constitutional: no acute distress *Routine HEENT Exam Head: Present normocephalic Eye: Present EOMI and PERRL ENT: Present mucous membranes moist *Routine Neck Exam Neck: Present supple; Absent lymphadenopathy *Routine Respiratory Exam Respiratory: Present wheezes; Absent CTA bilaterally *Routine Cardiovascular Exam Cardiovascular: Present RRR *Routine Abdominal Exam Abdominal: Present soft and normoactive bowel sounds; Absent tenderness *Routine Rectal Exam Rectal:: deferred *Routine Genitalia Exam Genitalia:: deferred *Routine Extremities Exam Extremities: Absent cyanosis, clubbing or edema *Routine Skin Exam Skin: Present warm; Absent rash *Routine Neurological Exam Neurological: Present alert and oriented X3 Assessment and Plan *Assessment and plan (1) Acute respiratory failure with hypoxia and hypercarbia: Status: Acute Category: Medical Code(s): J96.01 - Acute respiratory failure with hypoxia; J96.02 - Acute respiratory failure with hypercapnia (2) Generalized weakness: Status: Acute Category: Medical Code(s): R53.1 - Weakness (3) COPD (chronic obstructive pulmonary disease): Status: Chronic Category: Medical Code(s): J44.9 - Chronic obstructive pulmonary disease, unspecified (4) Type 2 diabetes mellitus with peripheral neuropathy: Status: Chronic Category: Medical Code(s): E11.42 - Type 2 diabetes mellitus with diabetic polyneuropathy Plan Natalya Azul is a 73-year-old female with a medical history significant for COPD, levothyroxine, diabetes who presents for worsening shortness of breath over the past few days. Patient states she had flulike symptoms over the past week and developed shortness of breath that has been worsening. She also endorses intermittently productive cough, but no chest pain. Workup in the ED significant for influenza A. CXR did not reveal acute findings. Case discussed with ED provider and decision was made to admit patient for acute on chronic hypoxic respiratory failure secondary to COPD exacerbation. #Acute on chronic hypoxic respiratory failure #Chronic hypercapnic respiratory failure #Acute COPD exacerbation #Influenza A positive ? Levalbuterol, ipratropium, Pulmicort scheduled. ? Prednisone 40 mg daily day 1/5 ? IV doxycycline twice daily day 1/5 ? Tamsulosin 30 mg twice daily day 1/5. Renally dosed. ? Continues to have moderate wheezing. VBG reassuring. #Physical deconditioning ? Has not able been able to ambulate much over the past weeks. ? PT/OT consulted, pending recommendations. #Hypothyroidism ? Resumed home levothyroxine 50 mcg. #Type 2 diabetes ? Resumed home metformin 1000 mg twice daily. ? Full code DVT prophylaxis: Lovenox 30 mg
[2024-02-19 19:19] LABS: Lactic Acid Follow up (RFLX 2) 1.4 mmol/L (0.7-2.1)
[2024-02-19] MEDS: OSELTAMIVIR PHOSPHATE 6MG/ML ORAL SUSP 60ML 30 MG PO (20:20)
[2024-02-19 20:26] LABS: POC Glucose,Bedside 449 (70-110)
--- NOTE | 2024-02-19 20:30 | PC.NURSE ---
Addendum entered by Dayana Durand RN 02/19/24 20:39: Patient agreed at this time to take an oral treatment. Tyler CRAMER was paged as well, and he stated he will be putting in new orders for the patient. Original Note: I checked the patient's glucose by fingerstick at 20:09 for this evening (due at 21:00). The reading was 449; I informed the patient of this elevated reading and asked her if she takes insulin/is willing to take insulin tonight. She does not currently have a sliding scale ordered in the MAR. The patient stated adamantly, no, I do not want to take insulin. She explained that she also does not take insulin at home. Tyler CRAMER was paged at this time to notify him about the situation and the elevated reading. He requested for me to ask the patient if she is willing to take an oral glucose treatment instead.
[2024-02-19] MEDS: glipiZIDE 5MG TABLET 5 MG PO (20:55)
--- NOTE | 2024-02-19 21:43 | PC.NURSE ---
Tyler CRAMER was paged at this time to obtain an order for a urine sample/urinalysis. Per shift report/previous shift, patient's family had wanted the patient's urine to be checked due to its appearance. Current urine appearance is quite cloudy and straw colored. Urine sample will be taken and sent to lab as appropriately during this shift.
[2024-02-19 21:57] LABS: Microscopic, Urine URINE MICROSCOPIC (MICROSCOPIC)
[2024-02-19 21:58] LABS: Blood, Urine TRACE-I (Negative); Glucose,Urine (UA) 1+ (Negative); Ketones,Urine TRACE (Negative); Leukocyte Esterase,Urine Negative (Negative); Nitrate,Urine Negative (Negative); PH,Urine 5.5 (5.0-8.5); Protein,Urine 2+ (Negative); Specific Gravity, Urine >= 1.030 (1.005-1.030); Urobilinogen,Urine 0.2 EU/dl (0.2)
[2024-02-19 22:04] LABS: Appearance,Urine Cloudy (Clear); Bilirubin,Urine 1+ (Negative); Color,Urine Dark Yellow (Yellow)
[2024-02-19 22:17] LABS: Bacteria,Urine 2+ /lpf
[2024-02-20] VITALS (10 sets, daily range): BP systolic 128–150; BP diastolic 67–82; PULSE 69–100; RESP 17–20; TEMP 36.5–36.8; O2SAT 92–99; BMI 16.2
--- NOTE | 2024-02-20 04:34 | PC.NURSE ---
Addendum entered by Dayana Durand RN 02/20/24 05:00: Droplet precautions for Influenza A ongoing. Sign remains in place. Original Note: Patient is alert and oriented x4. Patient was observed to have eyes closed, respirations even on 4 L of oxygen via nasal cannula, and no apparent distress throughout the night. Upon assessment while awake, patient's work of breathing was slightly short of breath. Barrel-chest is present and patient's appearance/skin is frail. Upon auscultation of her lungs, diminished air movement was noticed and subtle crackles were heard bilaterally in her lung bases. Oxygen saturations have maintained > 90%. Nasal cannula was humidified this shift. Patient did refuse her midnight breathing treatment, reporting to the respiratory therapist that she wanted to rest instead. Patient did not appear to have any respiratory distress. ACHS glucose fingersticks were performed this shift. She refused sliding scale insulin but agreed to new glipizide regimen (see prior note). Scheduled medications were administered as appropriately per APR. She refused a bedtime snack but finished her reheated supper tray. Auscultation of her heart and bowels were within normal findings. Normal sinus rhythm on telemetry. Patient continues to utilize a purewick; urine has been emptied and documented accordingly. Due to its abnormal appearance, a urine sample was collected and analyzed by lab this shift; urine cultures pending. Blood pressures have been elevated this shift; other vital signs stable. At this time, the patient is resting in bed without any further complaints. Bed alarm on. Call light within reach.
--- NOTE | 2024-02-20 05:46 | PC.NURSE ---
Patient's fingerstick glucose for this morning (due at 06:00) was 138. Glipizide regimen successful.
[2024-02-20] MEDS: BUDESONIDE 0.5MG/2ML NEB 0.5 MG IH ×2 (06:29→18:14)
[2024-02-20] MEDS: LEVALBUTEROL 1.25MG/3ML NEB 1.25 MG IH ×3 (06:29→18:14)
[2024-02-20] MEDS: IPRATROPIUM BROMIDE 0.5 MG/2.5ML SOLUTION IH ×3 (06:29→18:14)
--- NOTE | 2024-02-20 06:32 | PC.NURSE ---
Patient received scheduled breathing treatment this morning. Respiratory therapist informed me that she decreased the patient's oxygen flow (via nasal cannula) to 2 L at this time. Oxygen saturations were 99%.
[2024-02-20 07:29] LABS: Basophils % 0.1 % (0.1-2.0); Hematocrit 37.8 % (37.0-47.0); Lymphocytes # 0.9 K/mm3 (0.7-4.5); Lymphocytes % 11.4 % (10-50); Mean Corpuscular HGB Conc 32.3 g/dL (31.8-35.4); Mean Corpuscular Hemoglobin 29.4 pg (27.0-31.2); Mean Corpuscular Volume 91.1 fl (81-99); Mean Platelet Volume 9.5 fl (7.4-10.4); Monocytes # 0.8 K/mm3 (0.1-1.0); Neutrophils % 78.1 % (37.0-80.0); Platelet Count 354 K/mm3 (142-424); Red Blood Count 4.15 M/mm3 (4.20-5.40); Red Cell Distribution Width 12.3 % (11.5-17.5); White Blood Count 7.7 K/mm3 (4.8-10.8)
[2024-02-20 07:48] LABS: Alanine Aminotransferase 18 U/L (12-78); Albumin Level 3.7 g/dl (3.5-5.0); Albumin/Globulin Ratio 1.4 (1.1-1.8); Alkaline Phosphatase 64 U/L (38-126); Anion Gap 7.1 mEq/L (5-15); Aspartate Amino Transferase 28 U/L (14-36); Bilirubin,Total 0.3 mg/dl (0.2-1.3); Blood Urea Nitrogen 19 mg/dl (7-17); Calcium 8.9 mg/dl (8.4-10.2); Carbon Dioxide 37 mmol/L (22.0-30.0); Chloride 101 mmol/L (98-107); Creatinine Clearance Estimated 32 mL/min (50-200); Estimated Glomerular Filt Rate 82 ml/min (>60); GFR (African American) 99 ML/MIN (>60); Globulin 2.6 g/dL (1.3-3.2); Glucose 123 mg/dl (74-100); Magnesium 2.4 mg/dl (1.6-2.3); Potassium 4.1 mmoL/L (3.5-5.1); Sodium 141 mmol/L (136-145); Total Protein,Serum 6.3 g/dl (6.3-8.2)
[2024-02-20] MEDS: OSELTAMIVIR PHOSPHATE 6MG/ML ORAL SUSP 60ML 30 MG PO ×2 (08:03→20:35)
[2024-02-20] MEDS: glipiZIDE 5MG TABLET 5 MG PO (08:04)
[2024-02-20] MEDS: predniSONE 20MG TAB 40 MG PO (08:04)
[2024-02-20] MEDS: ENOXAPARIN 30MG/0.3ML SYRINGE 30 MG SUBCUT (08:04)
[2024-02-20 08:08] LABS: HCV Ab Non Reactive (Non Reactive)
[2024-02-20 08:44] LABS: Troponin I 0.04 ng/ml (0.00-0.034)
[2024-02-20 09:36] LABS: Hemoglobin 12.3 g/dL (12.2-16.2)
[2024-02-20 10:54] LABS: POC Glucose,Bedside 150 (70-110)
[2024-02-20] MEDS: LEVOTHYROXINE 50MCG (0.05MG) TAB 50 MCG PO (12:38)
--- NOTE | 2024-02-20 17:17 | P.PN_ITS ---
Subjective *Date: 02/20/24 *Time: 17:17 Interval history: Breathing better today. Continues to have physical deconditioning. PT/OT evaluation tomorrow. May need placement. Exam Data for Last 24 hours Vital signs and Labs for Last 24 Hours: Temp Pulse Resp BP Pulse Ox O2 Del Method O2 Flow Rate 97.8 F 82 20 150/79 H 95 Nasal Cannula 2 02/20/24 16:00 02/20/24 16:00 02/20/24 16:00 02/20/24 16:00 02/20/24 16:00 02/20/24 17:00 02/20/24 16:00 FiO2 35 02/19/24 12:30 Laboratory Results - last 24 hr 02/19/24 11:55: Hepatitis C Antibody Non reactive, HIV Ag/Ab Combo Qual Negative 02/19/24 17:40: Troponin I 0.04 H 02/19/24 18:55: Lactate 1.4 02/19/24 20:09: POC Glucose 449 H* 02/19/24 21:50: Urine Color Dark yellow, Urine Appearance Cloudy, Urine pH 5.5, Ur Specific [place] >= 1.030, Urine Protein 2+ A, Urine Glucose (UA) 1+, Urine Ketones Trace, Urine Blood Trace-i, Urine Nitrate Negative, Urine Bilirubin 1+ A , Urine Urobilinogen 0.2, Ur Leukocyte Esterase Negative, Urine RBC 5-10, Urine WBC 3-5, Ur Squamous Epith Cells None, Urine Bacteria 2+ 02/20/24 06:52: Troponin I 0.04 H 02/20/24 06:54: WBC 7.7, RBC 4.15 L, Hgb 12.3, Hct 37.8, MCV 91.1, MCH 29.4, MCHC 32.3, RDW 12.3, Plt Count 354, MPV 9.5, Neut % (Auto) 78.1, Lymph % (Auto) 11.4, [place] % (Auto) 10.0 H, Eos % (Auto) 0.0 L, Baso % (Auto) 0.1, Neut # (Auto) 6.0, Lymph # (Auto) 0.9, [place] # (Auto) 0.8, Eos # (Auto) 0.0, Baso # (Auto) 0.0, Sodium 141, Potassium 4.1, Chloride 101, Carbon Dioxide 37 H, Anion Gap 7.1, BUN 19 H, Creatinine 0.70, Estimated Creat Clear 32, Estimated GFR 82, Est GFR ( Amer) 99, Glucose 123 H D, Calcium 8.9, Magnesium 2.4 H, Total Bilirubin 0.3, AST 28, ALT 18 D, Alkaline Phosphatase 64, Total Protein 6.3, Albumin 3.7 D, Globulin 2.6, Albumin/Globulin Ratio 1.4 02/20/24 10:44: POC Glucose 150 H I & O for Last 24 hours: Intake & Output 02/17/24 02/18/24 02/19/24 02/20/24 23:59 23:59 23:59 23:59 Intake Total 200 / 300 570 / 570 Output Total 275 / 350 350 / 350 Balance -75 / -50 220 / 220 Weight 39.009 kg 41.594 kg Microbiology Reports for the Last 24 Hours: Microbiology 02/19/24 12:11 Blood Blood Culture - Preliminary NO GROWTH AFTER 24 HOURS 02/19/24 11:55 Blood Blood Culture - Preliminary NO GROWTH AFTER 24 HOURS Constitutional Constitutional: no acute distress *Routine HEENT Exam Head: Present normocephalic Eye: Present EOMI and PERRL ENT: Present mucous membranes moist *Routine Neck Exam Neck: Present supple; Absent lymphadenopathy *Routine Respiratory Exam Respiratory: Present wheezes; Absent CTA bilaterally *Routine Cardiovascular Exam Cardiovascular: Present RRR *Routine Abdominal Exam Abdominal: Present soft and normoactive bowel sounds; Absent tenderness *Routine Extremities Exam Extremities: Absent cyanosis, clubbing or edema *Routine Skin Exam Skin: Present warm; Absent rash *Routine Neurological Exam Neurological: Present alert and oriented X3 Assessment and Plan *Assessment and plan (1) Acute respiratory failure with hypoxia and hypercarbia: Status: Acute Category: Medical Code(s): J96.01 - Acute respiratory failure with hypoxia; J96.02 - Acute respiratory failure with hypercapnia (2) Generalized weakness: Status: Acute Category: Medical Code(s): R53.1 - Weakness (3) COPD (chronic obstructive pulmonary disease): Status: Chronic Category: Medical Code(s): J44.9 - Chronic obstructive pulmonary disease, unspecified (4) COPD exacerbation: Status: Acute Category: Medical Code(s): J44.1 - Chronic obstructive pulmonary disease with (acute) exacerbation Plan Natalya Azul is a 73-year-old female with a medical history significant for COPD, levothyroxine, diabetes who presents for worsening shortness of breath over the past few days. Patient states she had flulike symptoms over the past week and developed shortness of breath that has been worsening. She also endorses intermittently productive cough, but no chest pain. Workup in the ED significant for influenza A. CXR did not reveal acute findings. Case discussed with ED provider and decision was made to admit patient for acute on chronic hypoxic respiratory failure secondary to COPD exacerbation. #Acute on chronic hypoxic respiratory failure #Chronic hypercapnic respiratory failure #Acute COPD exacerbation #Influenza A positive ? Levalbuterol, ipratropium, Pulmicort scheduled. ? Prednisone 40 mg daily day 03/22 ? IV doxycycline twice daily day 03/22 ? Tamsulosin 30 mg twice daily day 2. Renally dosed. ? Continues to have moderate wheezing. VBG reassuring. ? Back to baseline of 2 L nasal cannula. However, physically deconditioned. See below. #Physical deconditioning ? Has not able been able to ambulate much over the past weeks. ? PT/OT consulted, pending recommendations. #Hypothyroidism ? Resumed home levothyroxine 50 mcg. #Type 2 diabetes ? Resumed home metformin 1000 mg twice daily. ? ACHS glucose checks, LDSSI. Full code DVT prophylaxis: Lovenox 30 mg
[2024-02-20] MEDS: METFORMIN 500MG TABLET 1000 MG PO (17:59)
[2024-02-20] MEDS: PRAVASTATIN 40MG TAB 40 MG PO (20:35)
[2024-02-20 20:49] LABS: POC Glucose,Bedside 260 (70-110)
--- NOTE | 2024-02-20 20:50 | PC.NURSE ---
I checked the patient's glucose by fingerstick at 20:38 for this evening (due at 21:00). The reading was 260; I informed the patient of the reading and asked her if she was willing to take insulin tonight because she does have sliding scale ordered in the MAR this time. She stated that she does not want to take insulin. Monico CRAMER was informed.
--- NOTE | 2024-02-20 21:02 | EXP.EVENT.NO ---
Problem: Elevated blood sugars but is receiving steroids at this time for her condition.. Patient did not want her sliding scale tonight if she does not take insulin at home so she refused it.. exam: Patient is stable at this time showing no signs of distress Plan: Will add a hemoglobin A1c to her morning labs. That we will help to confirm that it is only the steroids it is increasing her blood sugar. Or that she truly has underlying diabetes and does not realize it. Will hold present sliding scale at this time for tonight as the patient did not want it. Patient is in no distress and the blood sugars were not terribly elevated. She is on sliding scale and we will moved from low to medium for the sliding scale for the fingerstick blood sugars and treat as needed.
[2024-02-21] VITALS (11 sets, daily range): BP systolic 137–180; BP diastolic 72–90; PULSE 74–110; RESP 18–22; TEMP 36.4–37.4; O2SAT 94–100; BMI 16.9
--- NOTE | 2024-02-21 03:12 | PC.NURSE ---
Addendum entered by Dayana Durand RN 02/21/24 04:45: Respiratory therapist checked in with patient at this time. She stated that the patient's current oxygen saturation was 99% on 4 L, but because the sats have been intermittently dropping, she will be back in a few minutes to give the patient a breathing treatment. Addendum entered by Dayana Durand RN 02/21/24 04:22: At this time, patient's oxygen saturations started to decrease back into the low 80s (83%) on 4 L of oxygen via nasal cannula. Respiratory was paged for interventions. Addendum entered by Dayana Durand RN 02/21/24 03:54: deli bakery clerk notified me at this time that the patient's oxygen saturations had dropped into the low 80s with a good pleth on 3 L of oxygen via nasal cannula. Oxygen flow was increased to 4 L at this time. Original Note: At this time, patient's oxygen saturations started to gradually decrease to the upper 80s (fluctuating 86% to 88%) on 2 L of oxygen via nasal cannula. Oxygen flow was increased to 3 L at this time. Continuous pulse ox remains in place.
--- NOTE | 2024-02-21 04:48 | PC.NURSE ---
Patient is alert and oriented x4. Patient was observed to be awake for the majority of the night; she stated that she was able to sleep a little bit at random times during the night. Upon assessment, the patient was observed to have shallow respirations (also throughout the night), but she did not necessarily feel short of breath. However, this morning, patient reported feeling a bit short of breath. Oxygen flow for the majority of the shift was set to 2 L, now currently to 4 L. Patient tolerates nasal cannula but has appeared to occasionally drop, even during wakeful periods. Upon auscultation of her lungs this shift, overall diminished air movement with scattered crackles in the bilateral bases could be heard. Patient appearance still frail and barrel-chested. Patient complained of soreness in her legs during turns in bed; however, patient has strength to assist staff during repositioning. She continues to report having weakness; patient has not gotten out of bed to ambulate this shift. Purewick and a brief remain in place. Scheduled medications were administered accordingly per MAR. Patient continued to refuse sliding scale insulin. ACHS glucose fingersticks performed. At this time, the patient is resting on her side in bed without further complaints. Bed alarm on. Call light within reach. Patient's personal inhalers remain located in room. Droplet precautions ongoing for influenza A.
--- NOTE | 2024-02-21 05:25 | PC.NURSE ---
Addendum entered by Dayana Durand RN 02/21/24 05:52: Patient consumed all of orange juice and two packets of deann crackers (4 pieces total). I checked her glucose at this time and the reading was 88. Patient was encouraged to eat one more deann cracker packet after completing her current breathing treatment and later, to eat her breakfast as able. Original Note: I checked the patient's glucose by fingerstick at 05:22 (due at 06:00) and it was 68. Per protocol, 4 oz of orange juice and three deann crackers were given to the patient. Patient was encouraged to consume them within 15 minutes if able in time for another glucose fingerstick recheck. She stated that she does feel a little lightheaded and more weak this morning; her complexion is slightly pallor as well.
[2024-02-21 05:34] LABS: POC Glucose,Bedside 68 (70-110)
[2024-02-21] MEDS: IPRATROPIUM BROMIDE 0.5 MG/2.5ML SOLUTION IH ×3 (05:40→18:39)
[2024-02-21] MEDS: BUDESONIDE 0.5MG/2ML NEB 0.5 MG IH ×2 (05:40→18:39)
[2024-02-21] MEDS: LEVALBUTEROL 1.25MG/3ML NEB 1.25 MG IH ×3 (05:40→18:39)
[2024-02-21 05:58] LABS: POC Glucose,Bedside 88 (70-110)
[2024-02-21] MEDS: LEVOTHYROXINE 50MCG (0.05MG) TAB 50 MCG PO (06:33)
[2024-02-21 07:40] LABS: Basophils % 0.3 % (0.1-2.0); Eosinophils % 0.1 % (0.1-12.0); Hematocrit 38.4 % (37.0-47.0); Hemoglobin 12.1 g/dL (12.2-16.2); Lymphocytes # 1.5 K/mm3 (0.7-4.5); Lymphocytes % 14.5 % (10-50); Mean Corpuscular HGB Conc 31.5 g/dL (31.8-35.4); Mean Corpuscular Hemoglobin 28.7 pg (27.0-31.2); Mean Corpuscular Volume 91.2 fl (81-99); Mean Platelet Volume 9.5 fl (7.4-10.4); Monocytes # 0.8 K/mm3 (0.1-1.0); Monocytes % 7.4 % (1.7-9.3); Neutrophils # 7.9 K/mm3 (1.8-7.8); Neutrophils % 76.6 % (37.0-80.0); Platelet Count 418 K/mm3 (142-424); Red Blood Count 4.21 M/mm3 (4.20-5.40); Red Cell Distribution Width 12.2 % (11.5-17.5); White Blood Count 10.3 K/mm3 (4.8-10.8)
[2024-02-21 07:55] LABS: Alanine Aminotransferase 28 U/L (12-78); Alkaline Phosphatase 57 U/L (38-126); Aspartate Amino Transferase 44 U/L (14-36); Bilirubin,Total 0.3 mg/dl (0.2-1.3); Blood Urea Nitrogen 25 mg/dl (7-17); Calcium 8.8 mg/dl (8.4-10.2); Chloride 98 mmol/L (98-107); Creatinine Clearance Estimated 33 mL/min (50-200); Estimated Glomerular Filt Rate 70 ml/min (>60); GFR (African American) 85 ML/MIN (>60); Glucose 126 mg/dl (74-100); Potassium 3.6 mmoL/L (3.5-5.1); Sodium 137 mmol/L (136-145); Total Protein,Serum 5.7 g/dl (6.3-8.2)
[2024-02-21 07:56] LABS: Albumin Level 3.4 g/dl (3.5-5.0); Albumin/Globulin Ratio 1.5 (1.1-1.8); Anion Gap 10.6 mEq/L (5-15); Carbon Dioxide 32 mmol/L (22.0-30.0); Globulin 2.3 g/dL (1.3-3.2)
[2024-02-21] MEDS: predniSONE 20MG TAB 40 MG PO (08:11)
[2024-02-21] MEDS: METFORMIN 500MG TABLET 1000 MG PO ×2 (08:11→17:40)
[2024-02-21] MEDS: ENOXAPARIN 30MG/0.3ML SYRINGE 30 MG SUBCUT (08:11)
[2024-02-21] MEDS: OSELTAMIVIR PHOSPHATE 6MG/ML ORAL SUSP 60ML 30 MG PO ×2 (08:11→21:00)
[2024-02-21 09:14] LABS: Hemoglobin A1C 6.6 % (4.0-6.0)
[2024-02-21] MEDS: AZITHROMYCIN 250MG TABLET 500 MG PO (10:06)
--- NOTE | 2024-02-21 10:31 | HMH.PTEV ---
Physical Therapy Evaluation Rehab PT IP Evaluation Start: 02/20/24 21:01 Freq: ONCE Status: Active Protocol: Document 02/21/24 10:27 [facility] (Rec: 02/21/24 10:31 [facility] [id number]) Subjective/History History History 3-year-old female with a medical history significant for COPD, levothyroxine, diabetes who presents for worsening shortness of breath over the past few days. Pt reports she lives with her who is able to assist her, she uses a RW for ambulation at baseline. She reports she is on [place] O2 at all times at home. Subjective Subjective Pt reports feeling better, but still weak in general. She reluctantly agrees to mobility assessment and presents somewhat anxious to perform any mobility at this time. Rehab PT IP Eval Objective Appearance Patient Behavior Appropriate Patient Orientation Person,Place,Time Difficulty following instructions none Speech Pattern Clear Ambulation Patient Able to Ambulate No Balance Ability to Arise Able, uses arms to help Sitting Balance Leans or slides in chair Standing Balance Unsteady Dynamic Sitting Balance Ability Fair Dynamic Standing Balance Ability Poor Transfers Bed Transfer Ability Minimal x 2 (25% assist) Chair Transfer Ability Minimal x 2 (25% assist) Sit to Stand Bed Transfer Ability Minimal x 2 (25% assist) Rehab PT IP prob,goals,plan Problems Date of Evaluation: 02/21/24 PT IP Problems Bed Mobility,Transfers,Gait Rehab Potential Rehab Potential Good Plan PT Intervention Plan Bed Mobility,Transfers,Gait, Therapeutic Exercise PT Plan Frequency Daily Duration LOS Discharge Goals Bed Transfer Ability Contact Guard/Hand Hold Sit to Stand Chair Transfer Ability Contact Guard/Hand Hold Ambulation Assistive Device Rolling Walker Ambulation Distance (feet) 20 Discharge Plan PT Discharge Plan Pt is currently most appropriate for rehab placement once medically stable for d/c. She may improve enough to return home with family assist if she meets all therapy goals. Skilled therapy is indicated to increase strength, improve transfers, and improve gait ability to return pt to [facility]. Eval Complexity Eval Charge Codes 58057 - High Complexity PHYSICIAN CERTIFICATION: I certify the specified therapy services for Natalya Dobbs are required, authorized, and reviewed every 30 days.
[2024-02-21 10:52] LABS: POC Glucose,Bedside 109 (70-110)
--- NOTE | 2024-02-21 11:12 | HMH.OTEV ---
OT Inpatient Evaluation Rehab OT IP Evaluation Start: 02/20/24 21:01 Freq: ONCE Status: Active [facility]: [facility]Rec: 02/21/24 11:12 [facility] [id number]) Rehab OT IP Assessment Subjective History Pt oriented x 2 on arrival. Pt agreeable to engage in therapy evaluation. Pt is a 73-year-old female with a medical history significant for COPD, levothyroxine, diabetes who presents for worsening shortness of breath over the past few days. Pt reports she lives with her who is able to assist her, she uses a RW for functional transfers at baseline. She reports she is on [place] O2 at all times at home. Pt claims to be independent with all ADLs, but is dependent upon for completion of IADLs. Subjective Pt required mod/max verbal cues to engage in therapy evaluation. Objective Patient Orientation Person,Birthday Right Upper Extremity Gross ROM Min Limitation <25% Left Upper Extremity Gross ROM Min Limitation <25% Shoulder ROM Limitations Muscle Weakness Elbow ROM Limitations Muscle Weakness Wrist Limitations of Range of Motion Muscle Weakness Bed Mobility bed mobility-scooting,bed mobility - supine/sit Assist Level Minimal x 2 (25% assist) Transfer Training Sit/Stand Transfer Assist Level Minimal x 2 (25% assist) Rehab OT IP prob,goals,plan Problems Date of Evaluation: 02/21/24 OT IP Problems Bed Mobility,Transfers,Balance ,Self care,Safety Rehab Potential Rehab Potential Good Equipment Needs Assistive Devices Rolling / Wheeled Walker Plan OT intervention Plan Bed Mobility,Transfers,Balance ,Self care,Safety,Therapeutic Exercise OT Plan Frequency Daily Duration LOS Discharge Goals Bed Mobility Ability Standby Assistance Sit to Stand Chair Transfer Ability Contact Guard/Hand Hold, Minimal x 1 (25% assist) Chair Transfer Ability Contact Guard/Hand Hold, Minimal x 1 (25% assist) Chair Transfer Technique Sit to/from Ambulatory Chair Transfer Assistive Devices Rolling Walker Feeding Ability Assist with Tray Set Up Lower Body Dressing Ability Moderate Assistance Upper Body Dressing Ability Contact Guard Bathing Ability Moderate Assistance Performing Toilet Hygiene Ability Moderate Assistance Overall Commode/Toilet Transfer Ability Contact Guard,Minimal Assistance Commode/Toilet Transfer Technique Sit to/from Ambulatory Commode/Toilet Transfer Assistive Toilet Rails,Grab Bars Devices Discharge Plan OT Discharge Plan Pt will continue to be seen for OT services while at [facility]. Pt would benefit most from short term rehab at SNF upon discharge. If patient demonstrates great improvement while at [facility] and meets therapy goals, she could possibly return home with husbands assistance 07/09. Continued skilled therapy is important in order for patient to improve strength, safety, endurance, ADL independence and functional transfers to reach PLOF. Eval Complexity Eval Charge Codes 40261 - Moderate Complexity PHYSICIAN CERTIFICATION: I certify the specified therapy services for Natalya Dobbs are required, authorized, and reviewed every 30 days.
--- NOTE | 2024-02-21 11:24 | SW/DCPLANNER ---
Addendum entered by Sabrina Medrano 02/22/24 09:21: Patient has been approved and accepted to [facility] level of care for today. I have updated MD. Addendum entered by Sabrina Medrano 02/21/24 15:20: Nikia with [facility] is able to accept patient once she is 24 hour fever free pending auth. Per Nikia auth will be started today. Addendum entered by Sabrina Medrano 02/21/24 12:09: I was able to make contact with patient via phone. Patient is agreeable to placement at [facility] at this time. Patient information will be faxed. I will continue to follow up with patient and MD. Original Note: I attempted to contact patient and her via phone this AM regarding plans once medically stable for discharge. No answer at this time VM left. PT/OT evaluated patient and recommended SNF level of care at time of discharge. I will continue to attempt contact with patient. Discharge date is unknown at this time.
--- NOTE | 2024-02-21 11:55 | XR_ITS ---
FINAL REPORT TECHNIQUE: Single view chest CLINICAL HISTORY: SOB COMPARISON: 02/19/2024 FINDINGS: A single view of the chest was obtained. The heart and mediastinum are within normal limits. There is biapical pleural/parenchymal scarring. The lungs are otherwise clear. There is no pneumothorax. IMPRESSION: No acute cardiopulmonary process. Reviewed, Interpreted and Dictated by Dane Martinez MD Transcribed by Erlinda Bae Authenticated and [facility]
--- NOTE | 2024-02-21 12:07 | ECG_ITS ---
APPROVED REPORT Exam: Resting ECG HR:100 bpm ECG Measurements Heart Rate 100 AXES LA 160 P 84 QRSd 74 QRS 71 QT 350 T 83 QTc 407 Conclusion SINUS TACHYCARDIA WITH OCCASIONAL SUPRAVENTRICULAR PREMATURE COMPLEXES NONSPECIFIC ST & T-WAVE ABNORMALITY ABNORMAL RHYTHM ECG UNCONFIRMED REPORT Electronically signed by : Price Saha MD 02/22/2024 10:47:42
[2024-02-21 12:49] LABS: VBG Base Excess 3.5 mmol/L (-2.4-2.3); VBG HCO3 29.1 mmol/L (23-30); VBG Oxygen Saturation 72.8 % (50-70); VBG PH 7.35 mmol/L (7.31-7.41); VBG PO2 39.1 mmol/L (28-40); VBG Total CO2 30.7 mmol/L (23-27)
[2024-02-21 12:52] LABS: Lactate Venous 4.8 mmol/L (0.4-2.0); VBG PCO2 53.4 mmol/L (35-51)
[2024-02-21] MEDS: FLUTICASONE/UMECLIDIN/VILANTER 100/62.5/25MCG INHALER 1 PUFF IH (15:57)
[2024-02-21 16:50] LABS: Reflex Lactic Add Lactic Reflex
[2024-02-21 17:30] LABS: POC Glucose,Bedside 260 (70-110)
[2024-02-21 17:41] LABS: Lactic Acid Follow Up (RFLX 1) 4.6 mmol/L (0.7-2.1)
[2024-02-21] MEDS: humaLOG 100 UNITS/ML 10ML VIAL (SSI) SUBCUT (17:42)
--- NOTE | 2024-02-21 18:40 | PC.NURSE ---
patient c/o SOB earlier in shift and stated she had trouble breathing, tremors noted. assessed o2 saturation, 94% 4LNC, BP 180/90 manually, HR in the 105s, RR 26 contacted MD, new orders received. patient had just received a breathing tx prior to episode and her home albuterol inhaler was found on her bedside table, MD notified. inhaler is now in sprayer insecticide patients room.
--- NOTE | 2024-02-21 18:56 | P.PN_ITS ---
Subjective *Date: 02/21/24 *Time: 18:56 Interval history: Patient doing well but anxious, tremulous from using her albuterol in addition to breathing treatments. Improved after her albuterol was kept away. Metformin also discontinued in the setting of lactic acidosis. Exam Data for Last 24 hours Vital signs and Labs for Last 24 Hours: Temp Pulse Resp BP Pulse Ox O2 Del Method O2 Flow Rate 99.3 F 101 H 22 150/89 H 98 Nasal Cannula 3 02/21/24 16:00 02/21/24 18:42 02/21/24 16:00 02/21/24 16:00 02/21/24 18:42 02/21/24 18:42 02/21/24 18:42 FiO2 35 02/19/24 12:30 Laboratory Results - last 24 hr 02/20/24 20:38: POC Glucose 260 H 02/21/24 05:22: POC Glucose 68 L 02/21/24 05:51: POC Glucose 88 02/21/24 06:55: WBC 10.3 D, RBC 4.21, Hgb 12.1 L, Hct 38.4, MCV 91.2, MCH 28.7, MCHC 31.5 L, RDW 12.2, Plt Count 418, MPV 9.5, Neut % (Auto) 76.6, Lymph % (Auto) 14.5, [place] % (Auto) 7.4, Eos % (Auto) 0.1, Baso % (Auto) 0.3, Neut # (Auto) 7.9 H, Lymph # (Auto) 1.5, [place] # (Auto) 0.8, Eos # (Auto) 0.0, Baso # (Auto) 0.0, Sodium 137, Potassium 3.6, Chloride 98, Carbon Dioxide 32 H, Anion Gap 10.6, BUN 25 H D, Creatinine 0.80, Estimated Creat Clear 33, Estimated GFR 70, Est GFR ( Amer) 85, Glucose 126 H, Hemoglobin A1c 6.6 H, Calcium 8.8, Magnesium 2.0 D, Total Bilirubin 0.3, AST 44 H D, ALT 28 D, Alkaline P hosphatase 57, Total Protein 5.7 L, Albumin 3.4 L, Globulin 2.3, Albumin/Globulin Ratio 1.5 02/21/24 10:42: POC Glucose 109 02/21/24 12:40: VBG pH 7.35, VBG pCO2 53.4 H, VBG pO2 39.1, VBG HCO3 29.1, VBG Total CO2 30.7 H, VBG O2 Saturation 72.8 H, VBG Base Excess 3.5 H, VBG Lactic Acid 4.8 H 02/21/24 17:04: Lactate 4.6 H 02/21/24 17:05: POC Glucose 260 H I & O for Last 24 hours: Intake & Output 02/18/24 02/19/24 02/20/24 02/21/24 23:59 23:59 23:59 23:59 Intake Total 200 / 300 1170 / 1436 1106 / 1106 Output Total 275 / 350 500 / 500 600 / 600 Balance -75 / -50 670 / 936 506 / 506 Weight 39.009 kg 41.594 kg 43.261 kg Microbiology Reports for the Last 24 Hours: Microbiology 02/19/24 12:11 Blood Blood Culture - Preliminary NO GROWTH AFTER 48 HOURS 02/19/24 11:55 Blood Blood Culture - Preliminary NO GROWTH AFTER 48 HOURS 02/19/24 21:50 Urine,Clean Catch Urine Culture - Preliminary Constitutional Constitutional: no acute distress *Routine HEENT Exam Head: Present normocephalic Eye: Present EOMI and PERRL ENT: Present mucous membranes moist *Routine Neck Exam Neck: Present supple; Absent lymphadenopathy *Routine Respiratory Exam Respiratory: Present wheezes; Absent CTA bilaterally *Routine Cardiovascular Exam Cardiovascular: Present RRR *Routine Abdominal Exam Abdominal: Present soft and normoactive bowel sounds; Absent tenderness *Routine Extremities Exam Extremities: Absent cyanosis, clubbing or edema *Routine Skin Exam Skin: Present warm; Absent rash *Routine Neurological Exam Neurological: Present alert and oriented X3 Assessment and Plan *Assessment and plan (1) Acute respiratory failure with hypoxia and hypercarbia: Status: Acute Category: Medical Code(s): J96.01 - Acute respiratory failure with hypoxia; J96.02 - Acute respiratory failure with hypercapnia (2) Generalized weakness: Status: Acute Category: Medical Code(s): R53.1 - Weakness (3) COPD (chronic obstructive pulmonary disease): Status: Chronic Category: Medical Code(s): J44.9 - Chronic obstructive pulmonary disease, unspecified (4) COPD exacerbation: Status: Acute Category: Medical Code(s): J44.1 - Chronic obstructive pulmonary disease with (acute) exacerbation Plan Natalya Azul is a 73-year-old female with a medical history significant for COPD, levothyroxine, diabetes who presents for worsening shortness of breath over the past few days. Patient states she had flulike symptoms over the past week and developed shortness of breath that has been worsening. She also endorses intermittently productive cough, but no chest pain. Workup in the ED significant for influenza A. CXR did not reveal acute findings. Case discussed with ED provider and decision was made to admit patient for acute on chronic hypoxic respiratory failure secondary to COPD exacerbation. #Acute on chronic hypoxic respiratory failure #Chronic hypercapnic respiratory failure #Acute COPD exacerbation #Influenza A positive ? Levalbuterol and ipratropium Q6RT, Pulmicort BID scheduled. ? Prednisone 40 mg daily day 3/5 ? IV doxycycline twice daily day 3/5 ? Tamiflu 30 mg twice daily day 3/5. Renally dosed. ? Continues to have moderate wheezing. VBG reassuring. ? Back to baseline of 2 L nasal cannula. However, physically deconditioned. See below. #Physical deconditioning ? Has not able been able to ambulate much over the past weeks. ? PT/OT consulted, recommended SNF. Case management assisting with placement. [facility] has a bed offer for tomorrow. #Lactic acidosis ? Lactate up to 4.8 today, likely multifactorial as patient continues to use her on albuterol inhaler multiple times in the day. Also on metformin. ? Patient's albuterol was placed in the drawer. Metformin discontinued. #Hypothyroidism ? Resumed home levothyroxine 50 mcg. #Type 2 diabetes ? Metformin discontinued due to lactic acidosis. ? ACHS glucose checks, LDSSI. Full code DVT prophylaxis: Lovenox 30 mg
[2024-02-21 19:07] LABS: Reflex Lactic (2 hrs) Add Lactic Reflex
[2024-02-21 19:42] LABS: Lactic Acid Follow up (RFLX 2) 4.5 mmol/L (0.7-2.1)
[2024-02-21 20:33] LABS: POC Glucose,Bedside 136 (70-110)
[2024-02-21] MEDS: PRAVASTATIN 40MG TAB 40 MG PO (21:01)
[2024-02-22] VITALS: BP 169/97; PULSE 80; PULSE 87; RESP 22; TEMP 36.6; O2SAT 100
[2024-02-22 04:00] VITALS: BP 169/88; PULSE 80; PULSE 90; RESP 20; TEMP 36.5; O2SAT 97; BMI 17.4
--- NOTE | 2024-02-22 04:31 | PC.NURSE ---
73 yo fe pt has been A/O X 3 throughout shift. She reported increased SOA at the beginning of the shift and found to have 02 sats in the 80s on her 4 liters/nc. RT present and changed pt to 15liters/venti mask. Since then pt has rested comfortably, often found holding to the bottom of her mask. 02 sats often 100%. Discussed with RT and decided to keep with vent mask through the night due to anxiety and feeling more secure with mask on. FSBS 136 at 9pm.
[2024-02-22 06:03] LABS: POC Glucose,Bedside 79 (70-110)
[2024-02-22] MEDS: BUDESONIDE 0.5MG/2ML NEB 0.5 MG IH (06:39)
[2024-02-22] MEDS: LEVALBUTEROL 1.25MG/3ML NEB 1.25 MG IH (06:39)
[2024-02-22] MEDS: IPRATROPIUM BROMIDE 0.5 MG/2.5ML SOLUTION IH (06:39)
[2024-02-22 06:42] VITALS: PULSE 75
[2024-02-22 06:43] VITALS: O2SAT 99
[2024-02-22] MEDS: LEVOTHYROXINE 50MCG (0.05MG) TAB 50 MCG PO (06:50)
[2024-02-22 07:36] LABS: Lactic Acid 2.7 mmol/L (0.7-2.1)
[2024-02-22 08:00] VITALS: BP 152/78; PULSE 90; PULSE 95; RESP 21; TEMP 36.6; O2SAT 94
[2024-02-22 08:20] LABS: Basophils # 0.1 K/mm3 (0-0.2); Basophils % 0.7 % (0.1-2.0); Eosinophils % 0.3 % (0.1-12.0); Lymphocytes % 17.6 % (10-50); Mean Corpuscular HGB Conc 31.6 g/dL (31.8-35.4); Mean Corpuscular Hemoglobin 28.8 pg (27.0-31.2); Mean Corpuscular Volume 91.1 fl (81-99); Mean Platelet Volume 9.7 fl (7.4-10.4); Monocytes # 0.9 K/mm3 (0.1-1.0); Monocytes % 8.3 % (1.7-9.3); Neutrophils # 7.8 K/mm3 (1.8-7.8); Neutrophils % 70.7 % (37.0-80.0); Platelet Count 514 K/mm3 (142-424); Red Blood Count 4.17 M/mm3 (4.20-5.40); Red Cell Distribution Width 12.2 % (11.5-17.5); White Blood Count 11.1 K/mm3 (4.8-10.8)
[2024-02-22 08:28] LABS: Alanine Aminotransferase 24 U/L (12-78); Albumin Level 3.5 g/dl (3.5-5.0); Albumin/Globulin Ratio 1.5 (1.1-1.8); Alkaline Phosphatase 38 U/L (38-126); Anion Gap 12.6 mEq/L (5-15); Aspartate Amino Transferase 39 U/L (14-36); Bilirubin,Total 0.6 mg/dl (0.2-1.3); Blood Urea Nitrogen 30 mg/dl (7-17); Calcium 8.9 mg/dl (8.4-10.2); Carbon Dioxide 29 mmol/L (22.0-30.0); Chloride 99 mmol/L (98-107); Creatinine Clearance Estimated 34 mL/min (50-200); Estimated Glomerular Filt Rate 97 ml/min (>60); GFR (African American) 118 ML/MIN (>60); Globulin 2.4 g/dL (1.3-3.2); Glucose 113 mg/dl (74-100); Magnesium 1.7 mg/dl (1.6-2.3); Potassium 5.6 mmoL/L (3.5-5.1); Sodium 135 mmol/L (136-145); Total Protein,Serum 5.9 g/dl (6.3-8.2)
--- NOTE | 2024-02-22 08:44 | PC.NURSE ---
around 0730 pt was 100% on venti mask, switched to nc 2.5l (pts baseline). pt continues to do well with sats currently 92%.
--- NOTE | 2024-02-22 08:56 | P.DS_ITS ---
General Admission date:: 02/19/24 Discharge date: 02/22/24 HPI HPI HPI: Natalya Azul is a 73-year-old female with a medical history significant for COPD, levothyroxine, diabetes who presents for worsening shortness of breath over the past few days. Patient states she had flulike symptoms over the past week and developed shortness of breath that has been worsening. She also endorses intermittently productive cough, but no chest pain. Workup in the ED significant for influenza A. CXR did not reveal acute findings. Case discussed with ED provider and decision was made to admit patient for acute on chronic hypoxic respiratory failure secondary to COPD exacerbation. #Acute on chronic hypoxic respiratory failure #Chronic hypercapnic respiratory failure #Acute COPD exacerbation #Influenza A positive ? Levalbuterol, ipratropium, Pulmicort scheduled. ? Prednisone 40 mg daily day 2/5 ? IV doxycycline twice daily day 25 ? Tamsulosin 30 mg twice daily day 25. Renally dosed. ? Continues to have moderate wheezing. VBG reassuring. ? Back to baseline of 2 L nasal cannula. However, physically deconditioned. See below. #Physical deconditioning ? Has not able been able to ambulate much over the past weeks. ? PT/OT consulted, pending recommendations. #Hypothyroidism ? Resumed home levothyroxine 50 mcg. #Type 2 diabetes ? Resumed home metformin 1000 mg twice daily. Full code DVT prophylaxis: Lovenox 30 mg Hospital Course Hospital Course Hospital Course: Natalya Dobbs is a 73-year-old female with a medical history significant for COPD, levothyroxine, diabetes who presents for worsening shortness of breath over the past few days. Patient states she had flulike symptoms over the past week and developed shortness of breath that has been worsening. She also endorses intermittently productive cough, but no chest pain. Workup in the ED significant for influenza A. CXR did not reveal acute findings. Case discussed with ED provider and decision was made to admit patient for acute on chronic hypoxic respiratory failure secondary to COPD exacerbation. Patient found to be flu positive. Showing gradual improvement during admission. Weaned to baseline oxygen of 2 to 3 L. Will complete therapy after discharge. Has been accepted by [facility] for further management given her rehab needs. Stable to discharge. Problems addressed as follows: #Acute on chronic hypoxic respiratory failure #Chronic hypercapnic respiratory failure #Acute COPD exacerbation #Influenza A positive ? Chest x-ray with no acute findings. Admitted for COPD exacerbation and acute on chronic respiratory failure. Found to be flu positive. Started on steroids, antibiotics, Tamiflu with good response. Will complete therapy with 5 days of azithromycin, prednisone, Tamiflu as ordered per med rec. Weaned to baseline oxygen of 2-1/2 L by day of discharge. Therapy evaluated, recommend placement. Patient does have severe COPD with chronic failure. Continue Trelegy 100 inhaler. DuoNebs every 4 hours as needed. Patient is used to having her albuterol inhaler available to use as needed very frequently at home, will take some retraining to get comfortable with less frequent nebs/breathing treatments. May benefit from having DuoNebs scheduled every 6 with as needed doses available if symptomatic at [facility]. #Physical deconditioning ? Has not able been able to ambulate much over the past weeks. PT/OT consulted, recommended SNF. Patient accepted at [facility]. #Lactic acidosis ? Lactic acidosis elevated likely due to breathing treatments. Normalized after discontinuation of metformin. #Hypothyroidism ? Resumed home levothyroxine 50 mcg. #Type 2 diabetes ? A1c 6.6. Metformin discontinued during admission.. Okay to discharge. Total time spent on discharge 36 minutes in counseling, documentation, chart review, and direct care with patient. Exam Data for Last 24 hours Vital signs and Labs for Last 24 Hours: Temp Pulse Resp BP Pulse Ox O2 Del Method O2 Flow Rate 97.7 F 75 20 169/88 H 99 Nasal Cannula 2.5 02/22/24 04:00 02/22/24 06:42 02/22/24 04:00 02/22/24 04:00 02/22/24 06:43 02/22/24 08:00 02/22/24 08:00 FiO2 50 02/22/24 06:43 Laboratory Results - last 24 hr 02/21/24 06:55: Hemoglobin A1c 6.6 H 02/21/24 10:42: POC Glucose 109 02/21/24 12:40: VBG pH 7.35, VBG pCO2 53.4 H, VBG pO2 39.1, VBG HCO3 29.1, VBG Total CO2 30.7 H, VBG O2 Saturation 72.8 H, VBG Base Excess 3.5 H, VBG Lactic Acid 4.8 H 02/21/24 17:04: Lactate 4.6 H 02/21/24 17:05: POC Glucose 260 H 02/21/24 19:23: Lactate 4.5 H 02/21/24 20:26: POC Glucose 136 H 02/22/24 05:56: POC Glucose 79 02/22/24 07:05: WBC 11.1 H, RBC 4.17 L, Hgb 12.0 L, Hct 38.0, MCV 91.1, MCH 28.8, MCHC 31.6 L, RDW 12.2, Plt Count 514 H, MPV 9.7, Neut % (Auto) 70.7, Lymph % (Auto) 17.6, [place] % (Auto) 8.3, Eos % (Auto) 0.3, Baso % (Auto) 0.7, Neut # (Auto) 7.8, Lymph # (Auto) 2.0, [place] # (Auto) 0.9, Eos # (Auto) 0.0, Baso # (Auto) 0.1, Sodium 135 L, Potassium 5.6 H D, Chloride 99, Carbon Dioxide 29, Anion Gap 12.6, BUN 30 H, Creatinine 0.60 D, Estimated Creat Clear 34, Estimated GFR 97, Est GFR ( Amer) 118 D, Glucose 113 H, Lactate 2.7 H, Calcium 8.9, Magnesium 1.7 D, Total Bilirubin 0.6, AST 39 H, ALT 24, Alkaline Phosphatase 38, Total Protein 5.9 L, Albumin 3.5, Globulin 2.4, Albumin/Globulin Ratio 1.5 I & O for Last 24 hours: Intake & Output 02/19/24 02/20/24 02/21/24 02/22/24 23:59 23:59 23:59 23:59 Intake Total 200 / 300 1170 / 1436 1106 / 1106 Output Total 275 / 350 500 / 500 600 / 600 350 / 350 Balance -75 / -50 670 / 936 506 / 506 -350 / -350 Weight 39.009 kg 41.594 kg 43.261 kg 44.588 kg Microbiology Reports for the Last 24 Hours: Microbiology 02/19/24 21:50 Urine,Clean Catch Urine Culture - Final Multiple organisms, suggests contamination. 02/19/24 12:11 Blood Blood Culture - Preliminary NO GROWTH AFTER 48 HOURS 02/19/24 11:55 Blood Blood Culture - Preliminary NO GROWTH AFTER 48 HOURS Constitutional Constitutional: no acute distress, cachectic, chronically ill appearing and cooperative *Routine HEENT Exam Head: Present normocephalic and atraumatic Eye: Present EOMI and PERRL ENT: Present mucous membranes moist *Routine Neck Exam Neck: Present supple; Absent lymphadenopathy *Routine Respiratory Exam Respiratory: Present prolonged expiratory phase, wheezes and diminished air movement; Absent CTA bilaterally, rhonchi, stridor or crackles *Routine Cardiovascular Exam Cardiovascular: Present RRR *Routine Abdominal Exam Abdominal: Present soft and normoactive bowel sounds; Absent tenderness *Routine Rectal Exam Patient deferred: visual exam *Routine Exam Patient deferred: external exam *Routine Extremities Exam Extremities: Absent cyanosis, clubbing or edema *Routine Skin Exam Skin: Present warm; Absent rash *Routine Neurological Exam Neurological: Present alert, oriented X3 and moving all extremities; Absent altered mental status Results Data Completed and Pending Labs on day of discharge: Labs from last 24 hours 02/22/24 02/22/24 02/21/24 07:05 05:56 20:26 WBC 11.1 H RBC 4.17 L Hgb 12.0 L Hct 38.0 MCV 91.1 MCH 28.8 MCHC 31.6 L RDW 12.2 Plt Count 514 H MPV 9.7 Neut % (Auto) 70.7 Lymph % (Auto) 17.6 [place] % (Auto) 8.3 Eos % (Auto) 0.3 Baso % (Auto) 0.7 Neut # (Auto) 7.8 Lymph # (Auto) 2.0 [place] # (Auto) 0.9 Eos # (Auto) 0.0 Baso # (Auto) 0.1 VBG pH VBG pCO2 VBG pO2 VBG HCO3 VBG Total CO2 VBG O2 Saturation VBG Base Excess VBG Lactic Acid Sodium 135 L Potassium 5.6 H D Chloride 99 Carbon Dioxide 29 Anion Gap 12.6 BUN 30 H Creatinine 0.60 D Estimated Creat Clear 34 Estimated GFR 97 Est GFR ( Amer) 118 D Glucose 113 H POC Glucose 79 136 H Hemoglobin A1c Lactate 2.7 H Calcium 8.9 Magnesium 1.7 D Total Bilirubin 0.6 AST 39 H ALT 24 Alkaline Phosphatase 38 Total Protein 5.9 L Albumin 3.5 Globulin 2.4 Albumin/Globulin Ratio 1.5 02/21/24 02/21/24 02/21/24 19:23 17:05 17:04 WBC RBC Hgb Hct MCV MCH MCHC RDW Plt Count MPV Neut % (Auto) Lymph % (Auto) [place] % (Auto) Eos % (Auto) Baso % (Auto) Neut # (Auto) Lymph # (Auto) [place] # (Auto) Eos # (Auto) Baso # (Auto) VBG pH VBG pCO2 VBG pO2 VBG HCO3 VBG Total CO2 VBG O2 Saturation VBG Base Excess VBG Lactic Acid Sodium Potassium Chloride Carbon Dioxide Anion Gap BUN Creatinine Estimated Creat Clear Estimated GFR Est GFR ( Amer) Glucose POC Glucose 260 H Hemoglobin A1c Lactate 4.5 H 4.6 H Calcium Magnesium Total Bilirubin AST ALT Alkaline Phosphatase Total Protein Albumin Globulin Albumin/Globulin Ratio 02/21/24 02/21/24 02/21/24 12:40 10:42 06:55 WBC RBC Hgb Hct MCV MCH MCHC RDW Plt Count MPV Neut % (Auto) Lymph % (Auto) [place] % (Auto) Eos % (Auto) Baso % (Auto) Neut # (Auto) Lymph # (Auto) [place] # (Auto) Eos # (Auto) Baso # (Auto) VBG pH 7.35 VBG pCO2 53.4 H VBG pO2 39.1 VBG HCO3 29.1 VBG Total CO2 30.7 H VBG O2 Saturation 72.8 H VBG Base Excess 3.5 H VBG Lactic Acid 4.8 H Sodium Potassium Chloride Carbon Dioxide Anion Gap BUN Creatinine Estimated Creat Clear Estimated GFR Est GFR ( Amer) Glucose POC Glucose 109 Hemoglobin A1c 6.6 H Lactate Calcium Magnesium Total Bilirubin AST ALT Alkaline Phosphatase Total Protein Albumin Globulin Albumin/Globulin Ratio Preliminary micro results at discharge 02/19/24 12:11 Blood Culture - Preliminary Blood NO GROWTH AFTER 48 HOURS 02/19/24 11:55 Blood Culture - Preliminary Blood NO GROWTH AFTER 48 HOURS DS: Diagnosis Discharge Diagnosis (1) Influenza A: Status: Acute Code(s): J10.1 - Influenza due to other identified influenza virus with other respiratory manifestations (2) Acute respiratory failure with hypoxia and hypercarbia: Status: Acute Code(s): J96.01 - Acute respiratory failure with hypoxia; J96.02 - Acute respiratory failure with hypercapnia (3) Generalized weakness: Status: Acute Code(s): R53.1 - Weakness (4) COPD (chronic obstructive pulmonary disease): Status: Chronic Code(s): J44.9 - Chronic obstructive pulmonary disease, unspecified (5) COPD exacerbation: Status: Acute Code(s): J44.1 - Chronic obstructive pulmonary disease with (acute) exacerbation Meds Home Medications and Allergies Home Medications ?Medication ?Instructions ?Recorded ?Confirmed ?Type levothyroxine 50 mcg tablet 50 mcg PO DAILYDM 10/16/18 02/19/24 History albuterol sulfate 90 mcg/actuation 2 puff inhalation Q6HP PRN 02/19/24 02/19/24 History aerosol inhaler Shortness Of Breath metformin 1,000 mg tablet 1,000 mg PO BIDWMEAL Diabetes 02/19/24 02/19/24 History simvastatin 20 mg tablet 20 mg PO HS 02/19/24 02/19/24 History tramadol 50 mg tablet 50 mg PO Q6HP PRN Severe Pain 02/19/24 02/19/24 History (Scale Score 7-10) acetaminophen 325 mg tablet 650 mg (2 x 325 mg) PO Q6HP PRN 02/22/24 Rx Fever Or Mild Pain (1-3) 30 days #90 tabs azithromycin 250 mg tablet 500 mg (2 x 250 mg) PO DAILY 2 02/22/24 Rx days #4 tabs fluticasone fur. 100 mcg-umeclid 1 inh inhalation DAILY 30 days #60 02/22/24 Rx 62.5 mcg-vilant 25 mcg ea inhalat.powder (Trelegy Ellipta) ipratropium 0.5 mg-albuterol 3 mg 3 ml inhalation Q4HP PRN shortness 02/22/24 Rx (2.5 mg base)/3 mL nebulization of breath 30 days #180 mL soln oseltamivir 6 mg/mL oral 30 mg (5 mL) PO BID 2 days #20 mL 02/22/24 Rx suspension (Tamiflu) prednisone 20 mg tablet 40 mg (2 x 20 mg) PO DAILY 2 days 02/22/24 Rx #4 tabs New Prescriptions to Start Prescriptions: zachary Rust,Chidi azithromycin Barrera,Chidi [id number] [Trelegy Ellipta] Chidi Rust ipratropium-albuterol Chidi Rust oseltamivir [Tamiflu] Chidi Rust prednisone Chidi Rust Allergies Allergy/AdvReac Type Severity Reaction Status Date / Time Penicillins Allergy Severe TONGUE Verified 02/19/24 12:05 SWELLS doxycycline Allergy Mild I-RASH Verified 02/19/24 12:05 Discharge Plan Disposition Patient Disposition: er [facility] Condition: Fair Discharge Order Discharge Orders: Discharge Order (Routine); Ordered 02/22/24 Ordered By: Chidi Rust Follow up Plan Follow up with: Annika Christy MD [Physician] - Enter time for follow up Prescriptions/Medication Reconciliation: New acetaminophen 325 mg Tablet 650 mg PO Q6HP PRN (Reason: Fever Or Mild Pain (1-3)) 30 Days Qty: 90 0RF Trelegy Ellipta 100-62.5-25 mcg Blister With Device 1 inh inhalation DAILY 30 Days Qty: 60 0RF azithromycin 250 mg Tablet 500 mg PO DAILY 2 Days Qty: 4 0RF prednisone 20 mg Tablet 40 mg PO DAILY 2 Days Qty: 4 0RF oseltamivir [Tamiflu] 6 mg/mL Suspension For Reconstitution 30 mg PO BID 2 Days Qty: 20 0RF Continued levothyroxine 50 MCG tablet 50 mcg PO DAILYDM tramadol 50 mg tablet 50 mg PO Q6HP PRN (Reason: Severe Pain (Scale Score 7-10)) simvastatin 20 mg tablet 20 mg PO HS metformin 1,000 mg tablet 1,000 mg PO BIDWMEAL albuterol sulfate 90 mcg/actuation HFA aerosol inhaler 2 puff inhalation Q6HP PRN (Reason: Shortness Of Breath) Changed ipratropium-albuterol 0.5 mg-3 mg(2.5 mg base)/3 mL solution for nebulization 3 ml inhalation Q4HP PRN (Reason: shortness of breath) 30 Days Qty: 180 0RF Discontinued fluticasone propion-salmeterol 1 EACH blister with device 1 puff INHALATION BIDRT Patient Comments: INHALE 1 DOSE BY MOUTH TWICE DAILY, RINSE MOUTH WITH WATER AFTER USE TO REDUCE AFTERTASTE AND INCIDENCE OF CANDIDIASIS. DO NOT SWALLOW Problem Reconciliation Problems Reviewed?: Yes Patient Discharge Instructions ACTIVITY: Continue current activity DIET: continue same diet Patient Instructions: Chronic Obstructive Pulmonary Disease (Alternative Therapy), Chronic Obstructive Pulmonary Disease, DI for Respiratory Failure, DI for Hypoxia Print Language: [place] Providers Primary Care Provider: Abraham Murrieta Admit Provider: Faisal Travis Attending Provider: Faisal Travis
[2024-02-22] MEDS: predniSONE 20MG TAB 40 MG PO (09:30)
[2024-02-22] MEDS: ENOXAPARIN 40MG/0.4ML SYRINGE 40 MG SUBCUT (09:31)
[2024-02-22] MEDS: AZITHROMYCIN 250MG TABLET 500 MG PO (09:31)
[2024-02-22] MEDS: OSELTAMIVIR PHOSPHATE 6MG/ML ORAL SUSP 60ML 30 MG PO (09:33)
--- NOTE | 2024-02-22 10:11 | EXP.PULM.CON ---
History of Present Illness History of present illness: Ms. Dobbs is a 73-year-old male with reported history of COPD diabetes presented to the with worsening respiratory test found to be having influenza positive being managed and pulmonary was called for further evaluation and management. Patient today admits improving respiratory symptoms since admission. Oxygen requirements at baseline [facility] Disclaimer: The information contained in this section may have been updated after the patient was seen, as this information can be updated by other users. Social History Smoking Status: Never smoker second hand exposure: No alcohol intake: never current occupational status: retired Travel in the last 8 weeks: None household members: spouse housing: house current occupational exposures/hazards: No caffeine: Yes Have you lived/traveled outside [place] in past 30 days?: No Contact w/someone who lives/traveled outside [place] past 30 days?: No Exposure to someone with infectious disease in past 14 days?: No Do you have a fever (greater than 100.4 F or 38 C)?: No Have you tested positive for COVID-19: No Exposed to someone with COVID-19 in past 14 days?: No Do you have a sore throat?: No Do you have a cough?: Yes Do you have any weakness?: Yes Do you have any diarrhea?: No Are you experiencing any unusual bleeding?: No Do you have any muscle aches/pain?: No Do you have any abdominal pain?: No Are you experiencing loss of taste or smell?: No Review of Systems Constitutional Constitutional: Reports anorexia, Reports body ache(s) and Reports fatigue Eyes Eyes: Denies eye discharge, Denies dry eyes, Denies irritation and Denies itchy eyes ENT Ears, Nose, Mouth, and Throat: Denies epistaxis, Denies facial pain, Denies lip swelling and Denies throat swelling *Cardiovascular Cardiovascular: Reports dyspnea and Reports dyspnea on exertion *Respiratory Respiratory: Reports chest congestion, Reports cough, Reports dyspnea, Reports dyspnea on exertion and Reports wheezing *Gastrointestinal Gastrointestinal: Denies abdominal pain, Denies belching and Denies cramping *Musculoskeletal Musculoskeletal: Reports back pain, Reports myalgias and Reports other (No small joint swelling or Pain) Psychiatric Psychiatric: Denies homicidal ideation and Denies suicidal ideation Endocrine Endocrine: Reports fatigue and Denies heat intolerance Hematologic/Lymphatic Hematologic/Lymphatic: Denies easy bleeding and Denies lymphadenopathy Allergic/Immunologic Allergic/Immunologic: Denies itchy eyes, Denies lip swelling, Denies throat swelling and Reports wheezing Pulmonology Exam Inpatient Vital signs and Labs for Last 24 Hours: Temp Pulse Resp BP Pulse Ox O2 Del Method O2 Flow Rate 97.9 F 95 H 21 152/78 H 94 L Nasal Cannula 2.5 02/22/24 08:00 02/22/24 08:00 02/22/24 08:00 02/22/24 08:00 02/22/24 08:00 02/22/24 08:00 02/22/24 08:00 FiO2 50 02/22/24 06:43 Laboratory Results - last 24 hr 02/21/24 10:42: POC Glucose 109 02/21/24 12:40: VBG pH 7.35, VBG pCO2 53.4 H, VBG pO2 39.1, VBG HCO3 29.1, VBG Total CO2 30.7 H, VBG O2 Saturation 72.8 H, VBG Base Excess 3.5 H, VBG Lactic Acid 4.8 H 02/21/24 17:04: Lactate 4.6 H 02/21/24 17:05: POC Glucose 260 H 02/21/24 19:23: Lactate 4.5 H 02/21/24 20:26: POC Glucose 136 H 02/22/24 05:56: POC Glucose 79 02/22/24 07:05: WBC 11.1 H, RBC 4.17 L, Hgb 12.0 L, Hct 38.0, MCV 91.1, MCH 28.8, MCHC 31.6 L, RDW 12.2, Plt Count 514 H, MPV 9.7, Neut % (Auto) 70.7, Lymph % (Auto) 17.6, [place] % (Auto) 8.3, Eos % (Auto) 0.3, Baso % (Auto) 0.7, Neut # (Auto) 7.8, Lymph # (Auto) 2.0, [place] # (Auto) 0.9, Eos # (Auto) 0.0, Baso # (Auto) 0.1, Sodium 135 L, Potassium 5.6 H D, Chloride 99, Carbon Dioxide 29, Anion Gap 12.6, BUN 30 H, Creatinine 0.60 D, Estimated Creat Clear 34, Estimated GFR 97, Est GFR ( Amer) 118 D, Glucose 113 H, Lactate 2.7 H, Calcium 8.9, Magnesium 1.7 D, Total Bilirubin 0.6, AST 39 H, ALT 24, Alkaline Phosphatase 38, Total Protein 5.9 L, Albumin 3.5, Globulin 2.4, Albumin/Globulin Ratio 1.5 I & O for Labs for Last 24 Hours: Intake & Output 02/19/24 02/20/24 02/21/24 02/22/24 23:59 23:59 23:59 23:59 Intake Total 200 / 300 1170 / 1436 1106 / 1106 360 / 360 Output Total 275 / 350 500 / 500 600 / 600 350 / 350 Balance -75 / -50 670 / 936 506 / 506 10 / 10 Weight 86 lb 91 lb 11.2 oz 95 lb 6 oz 98 lb 4.8 oz Microbiology Reports for the Last 24 Hours: Microbiology 02/19/24 21:50 Urine,Clean Catch Urine Culture - Final Multiple organisms, suggests contamination. 02/19/24 12:11 Blood Blood Culture - Preliminary NO GROWTH AFTER 48 HOURS 02/19/24 11:55 Blood Blood Culture - Preliminary NO GROWTH AFTER 48 HOURS Constitutional: Present moderate distress Head: Present normocephalic and atraumatic ENT: Present normal exam, normal oropharynx and mucous membranes moist Neck: Present normal inspection and full ROM Respiratory: Present respiratory distress, rhonchi, wheezes and able to speak in complete sentences Cardiac: Present S1/S2, Tachycardia and radial pulses present GI: Present soft and distention; Absent tenderness or guarding Rectal (female): Present deferred (female): Present deferred Skin: Present intact; Absent cyanosis or jaundice Neuro: Present alert, awake and oriented x 3 Extremities: Present normal inspection; Absent clubbing or cyanosis Psychiatric: Present normal affect and cooperative Meds Home Medications and Allergies Home Medications ?Medication ?Instructions ?Recorded ?Confirmed ?Type levothyroxine 50 mcg tablet 50 mcg PO DAILYDM 10/16/18 02/19/24 History albuterol sulfate 90 mcg/actuation 2 puff inhalation Q6HP PRN 02/19/24 02/19/24 History aerosol inhaler Shortness Of Breath metformin 1,000 mg tablet 1,000 mg PO BIDWMEAL Diabetes 02/19/24 02/19/24 History simvastatin 20 mg tablet 20 mg PO HS 02/19/24 02/19/24 History tramadol 50 mg tablet 50 mg PO Q6HP PRN Severe Pain 02/19/24 02/19/24 History (Scale Score 7-10) acetaminophen 325 mg tablet 650 mg (2 x 325 mg) PO Q6HP PRN 02/22/24 Rx Fever Or Mild Pain (1-3) 30 days #90 tabs azithromycin 250 mg tablet 500 mg (2 x 250 mg) PO DAILY 2 02/22/24 Rx days #4 tabs fluticasone fur. 100 mcg-umeclid 1 inh inhalation DAILY 30 days #60 02/22/24 Rx 62.5 mcg-vilant 25 mcg ea inhalat.powder (Trelegy Ellipta) ipratropium 0.5 mg-albuterol 3 mg 3 ml inhalation Q4HP PRN shortness 02/22/24 Rx (2.5 mg base)/3 mL nebulization of breath 30 days #180 mL soln oseltamivir 6 mg/mL oral 30 mg (5 mL) PO BID 2 days #20 mL 02/22/24 Rx suspension (Tamiflu) prednisone 20 mg tablet 40 mg (2 x 20 mg) PO DAILY 2 days 02/22/24 Rx #4 tabs New Prescriptions to Start Prescriptions: ipratropium-albuterol Barrera,Chidi acetaminophen Barrera,Chidi azithromycin Barrera,Chidi [id number] [Trelegy Ellipta] Barrera,Chidi oseltamivir [Tamiflu] Barrera,Chidi prednisone Barrera,Chidi Allergies Allergy/AdvReac Type Severity Reaction Status Date / Time Penicillins Allergy Severe TONGUE Verified 02/19/24 12:05 SWELLS doxycycline Allergy Mild I-RASH Verified 02/19/24 12:05 Results Laboratory Findings 02/22/24 07:05 02/22/24 07:05 Abnormal lab findings: Abnormal Labs 02/19/24 02/19/24 02/19/24 11:55 12:04 12:09 WBC RBC Hgb MCHC Plt Count [place] % (Auto) Eos % (Auto) Neut # (Auto) VBG pCO2 53.4 H VBG Total CO2 29.9 H VBG O2 Saturation 70.5 H VBG Base Excess 2.5 H VBG Lactic Acid 2.8 H Sodium Potassium Chloride 96 L Carbon Dioxide 34 H BUN 21 H Glucose 265 H POC Glucose Hemoglobin A1c Lactate Magnesium AST Troponin I Total Protein Albumin Urine Protein Urine Bilirubin Influenza A Untype (PCR) Detected A 02/19/24 02/19/24 02/19/24 15:35 17:40 20:09 WBC RBC Hgb MCHC Plt Count [place] % (Auto) Eos % (Auto) Neut # (Auto) VBG pCO2 VBG Total CO2 VBG O2 Saturation VBG Base Excess VBG Lactic Acid Sodium Potassium Chloride Carbon Dioxide BUN Glucose POC Glucose 449 H* Hemoglobin A1c Lactate 2.2 H Magnesium AST Troponin I 0.04 H Total Protein Albumin Urine Protein Urine Bilirubin Influenza A Untype (PCR) 02/19/24 02/20/24 02/20/24 21:50 06:52 06:54 WBC RBC 4.15 L Hgb MCHC Plt Count [place] % (Auto) 10.0 H Eos % (Auto) 0.0 L Neut # (Auto) VBG pCO2 VBG Total CO2 VBG O2 Saturation VBG Base Excess VBG Lactic Acid Sodium Potassium Chloride Carbon Dioxide 37 H BUN 19 H Glucose 123 H D POC Glucose Hemoglobin A1c Lactate Magnesium 2.4 H AST Troponin I 0.04 H Total Protein Albumin Urine Protein 2+ A Urine Bilirubin 1+ A Influenza A Untype (PCR) 02/20/24 02/20/24 02/21/24 10:44 20:38 05:22 WBC RBC Hgb MCHC Plt Count [place] % (Auto) Eos % (Auto) Neut # (Auto) VBG pCO2 VBG Total CO2 VBG O2 Saturation VBG Base Excess VBG Lactic Acid Sodium Potassium Chloride Carbon Dioxide BUN Glucose POC Glucose 150 H 260 H 68 L Hemoglobin A1c Lactate Magnesium AST Troponin I Total Protein Albumin Urine Protein Urine Bilirubin Influenza A Untype (PCR) 02/21/24 02/21/24 02/21/24 06:55 12:40 17:04 WBC RBC Hgb 12.1 L MCHC 31.5 L Plt Count [place] % (Auto) Eos % (Auto) Neut # (Auto) 7.9 H VBG pCO2 53.4 H VBG Total CO2 30.7 H VBG O2 Saturation 72.8 H VBG Base Excess 3.5 H VBG Lactic Acid 4.8 H Sodium Potassium Chloride Carbon Dioxide 32 H BUN 25 H D Glucose 126 H POC Glucose Hemoglobin A1c 6.6 H Lactate 4.6 H Magnesium AST 44 H D Troponin I Total Protein 5.7 L Albumin 3.4 L Urine Protein Urine Bilirubin Influenza A Untype (PCR) 02/21/24 02/21/24 02/21/24 17:05 19:23 20:26 WBC RBC Hgb MCHC Plt Count [place] % (Auto) Eos % (Auto) Neut # (Auto) VBG pCO2 VBG Total CO2 VBG O2 Saturation VBG Base Excess VBG Lactic Acid Sodium Potassium Chloride Carbon Dioxide BUN Glucose POC Glucose 260 H 136 H Hemoglobin A1c Lactate 4.5 H Magnesium AST Troponin I Total Protein Albumin Urine Protein Urine Bilirubin Influenza A Untype (PCR) 02/22/24 07:05 WBC 11.1 H RBC 4.17 L Hgb 12.0 L MCHC 31.6 L Plt Count 514 H [place] % (Auto) Eos % (Auto) Neut # (Auto) VBG pCO2 VBG Total CO2 VBG O2 Saturation VBG Base Excess VBG Lactic Acid Sodium 135 L Potassium 5.6 H D Chloride Carbon Dioxide BUN 30 H Glucose 113 H POC Glucose Hemoglobin A1c Lactate 2.7 H Magnesium AST 39 H Troponin I Total Protein 5.9 L Albumin Urine Protein Urine Bilirubin Influenza A Untype (PCR) Assessment and Plan *Assessment and plan (1) Influenza A: Status: Acute Category: Medical Code(s): J10.1 - Influenza due to other identified influenza virus with other respiratory manifestations (2) Acute respiratory failure with hypoxia and hypercarbia: Status: Acute Category: Medical Code(s): J96.01 - Acute respiratory failure with hypoxia; J96.02 - Acute respiratory failure with hypercapnia Plan Ms. Dobbs is a 73-year-old female with reported history of COPD diabetes presented to the with worsening respiratory distress found to be having influenza positive being managed and pulmonary was called for further evaluation and management. Chest x-ray upon admission hyperinflated lungs with no dense consolidative changes. Right lower lobe patchy infiltrates noted. Repeat chest x-ray 02/21/2024 stable with no new infiltrates. Previously noted to have left upper lobe nodule status post biopsy granulomatous inflammation. Patient has been receiving Tamiflu and azithromycin since admission. Patient admits improving respiratory symptoms. Wheezing noted on auscultation. Moderate respiratory distress. Oxygen requirements at baseline 2 to 2.5 L nasal cannula. Admits tachycardia with albuterol. Plan: Continue azithromycin and Tamiflu for a total of 5 days Trelegy 100 inhaler along with Xopenex 4 times daily as needed Thank you for involving pulmonary in this patient will follow up in 1 to 2 weeks with a chest x-ray PA lateral prior to clinic
--- NOTE | 2024-02-22 10:48 | INFXCTL.NOTE ---
called pts eva, to notify him that pt is ready for d/c to snf. per chloé request, contact son hernandez for transport. made sure to tell son to bring portable o2 tank, hernandez said he will be here in about 2 hrs
[2024-02-22 11:16] LABS: Reflex Lactic Add Lactic Reflex
--- NOTE | 2024-02-22 11:58 | PC.NURSE ---
called report to jori at [facility]
[2024-02-22 12:44] VITALS: BMI 17.4
== END 2024-02-22 13:20 | DRG 189 ==
LOC: ER 11:52 → 2ND 13:57
PROVIDERS: Nurse Practitioner Family; Admitting Provider Student in an Organized Health Care Education/Training Program; Emergency Provider Student in an Organized Health Care Education/Training Program; PCP Family Medicine; Visit Provider Student in an Organized Health Care Education/Training Program
DX: J96.21 Acute and chronic respiratory failure with hypoxia (principal); J44.1 Chronic obstructive pulmonary disease with (acute) exacerbation; Z68.1 Body mass index [BMI] 19.9 or less, adult; R64 Cachexia; J10.1 Influenza due to other identified influenza virus with other respiratory manifestations; J96.12 Chronic respiratory failure with hypercapnia; E11.42 Type 2 diabetes mellitus with diabetic polyneuropathy; E03.9 Hypothyroidism, unspecified; Z99.81 Dependence on supplemental oxygen; Z79.890 Hormone replacement therapy; Z79.51 Long term (current) use of inhaled steroids; Z79.84 Long term (current) use of oral hypoglycemic drugs; Z79.899 Other long term (current) drug therapy
CPT/HCPCS: 36415; 71045; 80053; 81001; 82803; 82962; 83036; 83605; 83735; 83880; 84484; 85025; 86803; 87040; 87086; 87389; 87636; 93005; 94640; 94760; 94761; 97110; 97163; 97166; 97530; 99291; J0456; J0696; J1650; J2919; J3475; J7050; J7614; J7620; J7644

== ENCOUNTER 2024-04-04 17:03 | Outpatient (CLI) | payer MEDICARE, OTHER, SELFPAY ==
[2024-04-04 17:11] LABS: Basophils # 0.1 K/mm3 (0-0.2); Basophils % 1.4 % (0.1-2.0); Eosinophils # 0.3 K/mm3 (0.0-0.4); Hematocrit 36.1 % (37.0-47.0); Hemoglobin 11.3 g/dL (12.2-16.2); Lymphocytes # 1.5 K/mm3 (0.7-4.5); Lymphocytes % 16.5 % (10-50); Mean Corpuscular HGB Conc 31.3 g/dL (31.8-35.4); Mean Corpuscular Hemoglobin 28.9 pg (27.0-31.2); Mean Corpuscular Volume 92.3 fl (81-99); Mean Platelet Volume 9.7 fl (7.4-10.4); Monocytes # 0.6 K/mm3 (0.1-1.0); Monocytes % 6.1 % (1.7-9.3); Neutrophils # 6.7 K/mm3 (1.8-7.8); Neutrophils % 72.5 % (37.0-80.0); Platelet Count 524 K/mm3 (142-424); Red Blood Count 3.91 M/mm3 (4.20-5.40); Red Cell Distribution Width 14.6 % (11.5-17.5); White Blood Count 9.2 K/mm3 (4.8-10.8)
[2024-04-04 19:56] LABS: Hemoglobin A1C 6.6 % (4.0-6.0)
[2024-04-04 22:18] LABS: Chloride 96 mmol/L (98-107)
[2024-04-04 22:19] LABS: Albumin Level 4.4 g/dl (3.5-5.0); Sodium 136 mmol/L (136-145)
[2024-04-04 22:22] LABS: Alanine Aminotransferase 14 U/L (12-78); Albumin/Globulin Ratio 1.9 (1.1-1.8); Alkaline Phosphatase 78 U/L (38-126); Aspartate Amino Transferase 26 U/L (14-36); Bilirubin,Total 0.4 mg/dl (0.2-1.3); Blood Urea Nitrogen 13 mg/dl (7-17); Calcium 9.4 mg/dl (8.4-10.2); Carbon Dioxide 31 mmol/L (22.0-30.0); Chol/HDL Ratio 2.9 (1-3.5); Cholesterol 266 mg/dl (140-200); Estimated Glomerular Filt Rate 82 ml/min (>60); GFR (African American) 99 ML/MIN (>60); Globulin 2.3 g/dL (1.3-3.2); Glucose 85 mg/dl (74-100); HDL Cholesterol 92 mg/dl (40-60); Total Protein,Serum 6.7 g/dl (6.3-8.2); Triglycerides 209 mg/dl (30-150); VLDL Cholesterol 42 mg/dL (0-40)
[2024-04-04 22:33] LABS: Direct LDL Cholesterol 128.62 mg/dL (100-129)
== END 2024-04-04 23:59 | disposition home or self-care (01) ==
LOC: LAB.DROPOF 17:04
PROVIDERS: PCP Internal Medicine; Visit Provider Internal Medicine
DX: E11.42 Type 2 diabetes mellitus with diabetic polyneuropathy (principal); E11.59 Type 2 diabetes mellitus with other circulatory complications; E78.5 Hyperlipidemia, unspecified; J44.9 Chronic obstructive pulmonary disease, unspecified
CPT/HCPCS: 80053; 80061; 83036; 85025